=== PATIENT | female | born 1950 | race Caucasian/White ===

== ENCOUNTER 2020-07-23 08:27 | Outpatient (RCR) | payer MEDICARE, SELFPAY | END 2020-07-23 23:59 | LOC: IMMUN 08:27 | PROVIDERS: Visit Provider Family Medicine | DX: Z23 Encounter for immunization (principal) | CPT/HCPCS: 0011A; 0012A ==

== ENCOUNTER → 2022-10-05 | Outpatient (CLI) | payer MEDICARE, SELFPAY ==
--- NOTE | 2022-10-05 12:11 | ART_ITS ---
Reason For Study: Screening for cardiovascular disorder Procedure A bilateral lower extremity continuous wave Doppler with analog waveform analysis and ankle brachial indexes. Left Segmental Pressures Left brachial= 167mmHg. Left posterior tibial artery = 173mmHg. Left dorsalis pedis artery = 195mmHg. Left digit = 147 mmHg. The left posterior tibial artery waveforms are triphasic. The left dorsalis pedis waveforms are triphasic. Right Segmental Pressures Right brachial= 167mmHg. Right posterior tibial artery = 185mmHg. Right dorsalis pedis artery = 169mmHg. Right digit = 99 mmHg. Indices The right ankle brachial index by the posterior tibial artery is 1.11. The right ankle brachial index by the dorsalis pedis is 1.01. The right digital-brachial index is 0.59. The left ankle brachial index by the posterior tibial artery is 1.04. The left ankle brachial index by the dorsalis pedis is 1.17. The left digital-brachial index is 0.88. VL/Ankle Brachial Index Interpretation Summary Right CATHY 1.11, normal. Doppler/PVR waveforms of the right ankle normal at rest . TBI diminished, pedal/digit disease vs spasm Left CATHY 1.17, normal. TBI and Doppler/PVR waveforms of the left ankle normal a t rest. Ordering Physician: Liz Hu Referring Physician: LIZ HU NEUROLOGICAL PHYSIOTHERAPIST Performed By: Roosevelt Lozano RVT
--- NOTE | 2022-10-05 16:37 | STRESSREP ---
Stress Test Report Exercise stress test. 72-year-old lady with a history of chest pain Stress protocol: Resting EKG demonstrates normal sinus rhythm at a rate of 74 bpm resting blood pressure is 142/82 mmHg. The patient exercised according to the regular Chet protocol for a total duration of 5 minutes attaining a maximum heart rate of 141 bpm which was 96% of maximum predicted heart rate; the maximum workload was 7 metabolic equivalents. At rest there were no ST or T wave changes noted to suggest ischemia and at peak exercise upsloping ST changes only were noted which did not meet the criteria for ischemia. No clinical angina was noted the test was terminated due to the target heart rate being achieved/fatigue. The peak blood pressure was 178/60 mmHg. Rate-pressure product was 21,700. Conclusion: Normal exercise stress test with no evidence of ischemia at a moderate workload
== END | disposition home or self-care (01) ==
PROVIDERS: PCP Nurse Practitioner Adult Health; Referring Provider Nurse Practitioner Adult Health; Visit Provider Nurse Practitioner Adult Health
DX: R07.9 Chest pain, unspecified (principal); Z13.6 Encounter for screening for cardiovascular disorders; R09.89 Other specified symptoms and signs involving the circulatory and respiratory systems
CPT/HCPCS: 93017; 93922

== ENCOUNTER → 2024-04-14 | Outpatient (CLI) | payer MEDICARE, SELFPAY ==
[2024-04-14 09:35] LABS: Hemoglobin 13.9 g/dL (12.0-15.0); Mean Corp Hgb Conc 31.6 g/dL (32-36); Mean Corpuscular Hgb 28.7 pg (27.0-32.0); Mean Corpuscular Volume 90.9 fL (81-99); Mean Platelet Vol. 8.8 fl (6.2-12.0); Platelet Count 274 K/mm3 (150-450); RBC Distribution Width CV 13.7 % (11.6-14.6); RBC Distribution Width SD 45.9 fl (35.1-43.9); Red Blood Count 4.84 M/mm3 (4.2-5.4); White Blood Count 5.2 K/mm3 (4.4-11.0)
[2024-04-14 09:59] LABS: Hemoglobin A1c 5.4 % (3.8-5.6)
[2024-04-14 10:00] LABS: Vitamin D,25 Hydroxy 49.8 ng/mL
[2024-04-14 10:03] LABS: AST(SGOT) 12 U/L (15-37); Alanine Aminotransfer ALT/SGPT 18 U/L (13-56); Albumin, Serum 3.5 g/dL (3.2-5.0); Alkaline Phosphatase 80 U/L (45-117); Anion Gap 4 (5-15); BUN 17 mg/dL (7-18); BUN/Creat Ratio 18.4 RATIO (10-20); Calcium,Total 9.1 mg/dL (8.5-10.1); Chloride 108 mmol/L (98-107); Cholesterol 162 mg/dL (200); Creatinine, Serum 0.92 mg/dL (0.55-1.02); EST Glomerular Filtration Rate 63 mL/min (>60); Est Glom Filt Rate - Afr Amer 76 mL/min (>60); Globulin 3.4 g/dL (2.2-4.2); Glucose 103 mg/dL (74-106); High Density Lipoprotein 71 mg/dL; Potassium 3.8 mmol/L (3.5-5.1); Protein, Total 6.9 g/dL (6.4-8.2); Sodium Level 142 mmol/L (136-145); Triglycerides 92 mg/dL; Very Low Density Lipoprotein 18 mg/dL (5-40)
== END | disposition home or self-care (01) ==
LOC: LAB 09:06
PROVIDERS: PCP Nurse Practitioner Adult Health; Referring Provider Nurse Practitioner Adult Health; Visit Provider Nurse Practitioner Adult Health
DX: I10 Essential (primary) hypertension (principal); Z13.1 Encounter for screening for diabetes mellitus; E78.5 Hyperlipidemia, unspecified; E55.9 Vitamin D deficiency, unspecified; Z13.29 Encounter for screening for other suspected endocrine disorder
CPT/HCPCS: 36415; 80053; 80061; 82306; 83036; 84443; 85027

== ENCOUNTER → 2024-04-25 | Outpatient (CLI) | payer MEDICARE, SELFPAY ==
--- NOTE | 2024-04-25 10:11 | BI_ITS ---
MAMMOGRAPHY - BILATERAL SCREENING REASON FOR EXAM: Female, 73 years old. Routine annual screening examination. PERTINENT HISTORY: Non-contributory. Remote left excisional breast biopsy. TECHNIQUE: Digital bilateral breast darell (3D mammographic acquisition) in the CC and MLO projections. 2-D mediolateral oblique (MLO) and craniocaudad (CC) views of both breasts were obtained. CAD: Full Field Digital Mammography with Computer Added Detection was performed. COMPARISON: Comparison is made with prior outside examination dated April 14, 2023. FINDINGS: Breast Composition: The breasts are heterogeneously dense, which may obscure small masses. There are no dominant masses or suspicious calcifications. Stable small benign-appearing bilateral axillary lymph nodes. No other significant abnormalities are identified. There has been no significant change since the prior study. BI/SCRN MAMM (CAD)W/DARELL BILAT IMPRESSION: Stable bilateral screening mammogram. Yearly follow-up mammogram recommended. (A) ASSESSMENT CATEGORY: BIRADS Category 2: Benign. A letter regarding these results will be sent to the patient by the facility within 30 days. Approximately 10% of breast cancers are not detected by mammography. A normal mammogram should not delay biopsy of a clinically suspicious abnormality. [id number] Electronically Signed: Brian Kinney MD at 10:30 EST ,
== END | disposition home or self-care (01) ==
LOC: OPBI 10:10
PROVIDERS: PCP Nurse Practitioner Adult Health; Referring Provider Nurse Practitioner Adult Health; Visit Provider Nurse Practitioner Adult Health
DX: Z12.31 Encounter for screening mammogram for malignant neoplasm of breast (principal)
CPT/HCPCS: 77063; 77067

== ENCOUNTER → 2024-05-25 | Outpatient (CLI) | payer MEDICARE, SELFPAY ==
[2024-05-25 14:59] LABS: T4 Free Direct 1.22 ng/dL (0.76-1.46)
== END | disposition home or self-care (01) ==
LOC: LAB 13:37
PROVIDERS: PCP Nurse Practitioner Adult Health; Referring Provider Nurse Practitioner Family; Visit Provider Nurse Practitioner Family
DX: R94.6 Abnormal results of thyroid function studies (principal); R79.89 Other specified abnormal findings of blood chemistry
CPT/HCPCS: 36415; 84439; 84443

== ENCOUNTER → 2025-04-13 | Outpatient (CLI) | payer MEDICARE, SELFPAY ==
[2025-04-13 14:09] LABS: Hematocrit 46.9 % (37-47); Hemoglobin 14.6 g/dL (12.0-15.0); Mean Corp Hgb Conc 31.1 g/dL (32-36); Mean Corpuscular Volume 92.1 fL (81-99); Mean Platelet Vol. 8.7 fl (6.2-12.0); Platelet Count 290 K/mm3 (150-450); RBC Distribution Width CV 13.3 % (11.6-14.6); RBC Distribution Width SD 46.0 fl (35.1-43.9); Red Blood Count 5.09 M/mm3 (4.2-5.4); White Blood Count 4.9 K/mm3 (4.4-11.0)
[2025-04-13 14:48] LABS: AST(SGOT) 18 U/L (<=31); Alanine Aminotransfer ALT/SGPT 15 U/L (<=34); Albumin, Serum 4.1 g/dL (3.4-4.8); Alkaline Phosphatase 79 U/L (35-104); Anion Gap 9 (5-15); BUN 13 mg/dL (4-19); BUN/Creat Ratio 14.6 RATIO (10-20); Calcium,Total 9.6 mg/dL (7.6-11.0); Carbon Dioxide 28.5 mmol/L (21.0-32.0); Chloride 105 mmol/L (98-108); Globulin 2.9 g/dL (2.2-4.2); Glucose 104 mg/dL (70-99); Potassium 4.3 mmol/L (3.3-5.1); Vitamin D,25 Hydroxy 43.1 ng/mL (30-100)
[2025-04-13 15:07] LABS: Cholesterol 183 mg/dL (<=200); Low Density Lipoprotein Calc. 92 mg/dL; Triglycerides 145 mg/dL; Very Low Density Lipoprotein 29 mg/dL (5-40); cholesterol:hdl ratio screen 2.78
== END | disposition home or self-care (01) ==
LOC: LAB 13:25
PROVIDERS: PCP Nurse Practitioner Adult Health; Referring Provider Nurse Practitioner Adult Health; Visit Provider Nurse Practitioner Adult Health
DX: I10 Essential (primary) hypertension (principal); E78.5 Hyperlipidemia, unspecified; E55.9 Vitamin D deficiency, unspecified; Z13.29 Encounter for screening for other suspected endocrine disorder
CPT/HCPCS: 36415; 80053; 80061; 82306; 84443; 85027

== ENCOUNTER → 2025-05-08 | Outpatient (CLI) | payer MEDICARE, SELFPAY ==
--- NOTE | 2025-05-08 12:48 | BI_ITS ---
EXAM: SCRN MAMM (CAD)W/DARELL BILAT DATE: 05/08/2025 CLINICAL HISTORY: F, Age 74 y/o , SCREENING No family history. Remote left excisional breast biopsy. TECHNIQUE: Procedure Code: [id number] Modality: MG Procedure: SCRN MAMM (CAD)W/DARELL BILAT COMPARISON: Prior exam(s) dated April 25, 2024.. FINDINGS: TISSUE DENSITY: The breasts are heterogeneously dense, which may obscure small masses. Bilateral Breast Mammographic Findings: No significant masses, calcifications or other abnormalities are identified. Stable small benign-appearing bilateral axillary lymph nodes. No suspicious masses, areas of developing architectural distortion, or suspicious calcifications. There has been no significant interval change. BI/SCRN MAMM (CAD)W/DARELL BILAT IMPRESSION: Stable bilateral screening mammogram. OVERALL FINAL ASSESSMENT BI-RADS 2: BENIGN RECOMMENDATION: Routine annual follow-up in 1 Year Additional Recommendation none A letter with findings and recommendations will be mailed to the patient. Reading Location: [facility]
--- NOTE | 2025-05-08 12:53 | BD_ITS ---
PROCEDURE: DEXA BONE DENSITY STUDY 05/08/2025 REASON FOR EXAM: F, age 74 y/o . Postmenopausal. TECHNIQUE: Procedure Code: BDDBD Modality: DX Procedure: DEXA BONE DENSITY STUDY COMPARISON: None FINDINGS: BMD and T-SCORES Lumbar spine: 0.999 g/cm2, T-score -0.4 Levels: L1 through L4 Left femoral neck: 0.648 g/cm2, T-score -1.8 Femoral neck comparison data not recommended for monitoring change. Left total hip: 0.819 g/cm2, T-score -1.0 Right femoral neck: 0.680 g/cm2, T-score -1.5 Femoral neck comparison data not recommended for monitoring change. Right total hip: 0.766 g/cm2, T-score -1.4 The World Health Organization has defined the following categories based on bone density: Normal bone density: T-score equal to or greater than -1.0 Osteopenia: T-score between -1.0 and -2.5 Osteoporosis: T-score equal to or less than -2.5 FRAX (or Comparable) Fracture Risk Assessment: 10 Year Probability of Fracture: Major Osteoporotic Fracture: 18% Hip Fracture: 3.9% (Note: FRAX is not to be reported in setting of normal range bone density, osteoporosis on DEXA, known history of osteoporosis, prior osteoporotic hip or vertebral fracture, or for any patient undergoing pharmacological treatment for bone loss.) The National Osteoporosis Foundation (NOF) recommends pharmacological treatment for patients with a FRAX 10-year risk of 3% or higher for a hip fracture, or 20% or higher for a major osteoporotic fracture, to prevent osteoporosis and reduce fracture risk. The patient does meet the pharmacological treatment recommendations for prevention of osteoporosis. BD/Dexa Bone Density Study IMPRESSION: OSTEOPENIA. Recommend follow-up as clinically warranted. Reading Location: [facility]
--- OUTSIDE RECORDS SUMMARY | 2025-05-08 19:00 | XMS RPT_ITS | CCD ---
Author Organization [facility] Care Team Providers Care Insurance Follow Up Rep Name Role Phone Thaina LEGAL INSTRUCTOR.Oj BARAHONA Primary Care Provider Thania LEGAL INSTRUCTOR.Oj BARAHONA Primary Care Provider Bonnie STOKES, Yovany Burgos Unavailable Alex STOKES, Ashish Chanel Unavailable Lamont STOKES, Mauri Hartman Unavailable Adri OD, David Ott Unavailable [phone] Thania LEGAL INSTRUCTOR.Oj BARAHONA Primary Care Provider Anali Ibarra OD Unavailable Thania BARK GRINDER, Oj Primary Care Unavailable Trill BARK GRINDER, Madison Referring Unavailable Trill BARK GRINDER, Madison Attending Unavailable Thania BARK GRINDER, Oj Primary Care Unavailable Thania BARK GRINDER, Oj Referring Unavailable Thania BARK GRINDER, Oj Attending Unavailable Thania BARK GRINDER, Oj Referring Unavailable Thania BARK GRINDER, Oj Attending Unavailable Thania BARK GRINDER, Oj Primary Care Unavailable OJ HU M Attending Unavailable OJ HU M Referring Unavailable OJ HU M Primary Care Unavailable Unavailable Unavailable Unavailable Allergies Allergy Classification Reported Allergen(s) Allergy Type Date of Onset Reaction(s) Facility (20 sources) Chlorpheniramine / Pseudoephedrine; Translations: [MED-HIST] Drug Allergy 6 Unknown [facility] (20 sources) Morphine; Translations: [MORPHINE] Drug Allergy 2 Intolerance, Other: See Comments [facility] Medications Current Medications Medication Drug Class(es) Dates Sig (Normalized) Sig (Original) atorvastatin 10 mg oral tablet (20 sources) HMG-CoA Reductase Inhibitor Start: 02-23-2023 End: 02-21-2024 take 1 tablet by mouth once daily at bedtime atorvastatin (LIPITOR) 10 mg tablet Indications: Hyperlipidemia, unspecified hyperlipidemia type Take 1 tablet by mouth once daily. BEFORE BEDTIME 90 tablet 3 02/21/2024 Active Start: 03-16-2021 End: 03-10-2022 take 1 tablet by mouth once daily at bedtime atorvastatin (LIPITOR) 10 mg tablet Indications: Hyperlipidemia, unspecified hyperlipidemia type Take 1 tablet by mouth once daily. BEFORE BEDTIME 90 tablet 3 03/10/2022 Active Comment on above: Take 1 tablet by myra th once daily. BEFORE BEDTIME Bacillus coagulans (20 sources) take 1 tablet by mouth once daily BACILLUS COAGULANS (PROBIOTIC, B. COAGULANS, ORAL) Take 1 tablet by mouth once daily. Active take 1 tablet by mouth once bin y BACILLUS COAGULANS (PROBIOTIC, B. COAGULANS, ORAL) Take 1 tablet by mouth once daily. 0 Active Comment on above: Take 1 tablet by myra th once daily. Blood Pressure Monitor kit (20 sources) Start: 05-21-2016 Blood Pressure Monitor kit Indications: Essential hypertension 1 Kit as directed. 1 Kit 05/21/2016 Active Start: 05-21-2016 Blood Pressure Monitor kit Indications: Essential hypertension 1 Kit as directed. 1 Kit 0 05/21/2016 Active Comment on above: 1 Kit as directed. Blood Pressure Test Kit-Large kit (20 sources) Start: 05-21-2016 Blood Pressure Test Kit-Large kit 05/21/2016 Active Start: 05-21-2016 Blood Pressure Test Kit-Large kit calcium carbonate 500 mg chewable tablet (20 sources) Start: 03-31-2017 take 750 mg by mouth once daily calcium carbonate (TUMS) 500 mg chew Take 750 mg by mouth once daily. 0 03/31/2017 Active Start: 03-31-2017 take 500 mg by mouth twice daily calcium carbonate (TUMS) 500 mg chew Take by mouth twice daily. 0 03/31/2017 Active Comment on above: Take by mouth twice daily. calcium carbonate 1500 mg / cholecalciferol 800 unt oral tablet (20 sources) Vitamin D take 1 tablet by mouth once daily, then take 3 tablets by mouth once daily calcium carbonate-vitamin D3 600 mg(1,500mg) -800 unit tab Take by mouth. 20 mcg of Vitamin D 3 and 600 mg of Calcium one daily Active take 3 tablets by mouth once tai ly calcium carbonate-vitamin D3 600 mg(1,500mg) -800 unit tab Take by mouth. 800 Units of Vitamin D 3 and 1000mg of Calcium one daily Active Comment on above: Take by mouth. 800 U nits of Vitamin D 3 and 1000mg of Calcium one daily cholecalciferol 0.025 mg oral tablet (14 sources) Vitamin D take 1 tablet by mouth once daily cholecalciferol (VITAMIN D) 1,000 unit tab tablet Take 1,000 Units by mouth once daily. Active hyoscyamine sulfate 0.125 mg sublingual tablet (14 sources) take 0.125 mg under the tongue every four hours as needed hyoscyamine sublingual (LEVSIN SL) 0.125 mg Dissolve 0.125 mg under the tongue every 4 hours as needed. Active Inulin (14 sources) inulin (FIBER MMIES ORAL) Take by mouth. Active losartan potassium 25 mg oral tablet (20 sources) Angiotensin 2 Receptor Keisha Start: 02-24-20 End: 02-21-20 24 take 1 tablet by mouth once daily losartan (COZAAR) 25 mg tablet Indications: Essential hypertension take 1 tablet by mouth once daily. 90 tablet 3 02/21/2024 Active Start: 09-16-2022 take 1 tablet by myra th once daily losartan (COZAAR) 25 mg tablet Indications: Essential hypertension Take 1 tablet by mouth once daily. 90 tablet 1 09/16/2022 Active Comment on above: Take 1 tablet by myra th once daily. nystatin [id number] unt/ml topical cream (20 sources) Polyene Antifungal Start: 03-10-2022 End: 04-04-2024 nystatin (MYCOSTATIN) cream Indications: Skin candidiasis Apply to affected area two times a day. 30 g 04/04/2024 Active Comment on above: Apply to affected ar ea twice daily. omega-3 fatty acids (FISH OIL CONCENTRATE) 1,000 mg cap (20 sources) take 1 capsule by mouth twice daily omega-3 fatty acids (FISH OIL CONCENTRATE) 1,000 mg cap Take 2 g by mouth twice daily. Active take 1 capsule by mouth twice da autumn omega-3 fatty acids (FISH OIL CONCENTRATE) 1,000 mg cap Take 2 g by mouth twice daily. 0 Active Comment on above: Take 2 g by mouth tw ice daily. oxybutynin chloride 5 mg oral tablet (20 sources) Cholinergic Muscarinic Antagonist Start: 1 End: 5 take 1 tablet by mouth twice daily oxybutynin (DITROPAN) 5 mg tablet Indications: Urinary urgency TAKE 1 TABLET BY MOUTH TWICE DAILY 180 tablet 3 08/14/2024 Active Comment on above: Take 1 tablet by myra th twice daily. pantoprazole 40 mg delayed release oral tablet (20 sources) Proton Pump Inhibitor Start: 7 take 1 tablet by mouth once daily pantoprazole DR (PROTONIX) 40 mg tablet Take 40 mg by mouth once daily. 03/31/2017 Active Comment on above: Take 40 mg by mouth once daily. sertraline 25 mg oral tablet (19 sources) Serotonin Reuptake Inhibitor Start: 4 End: 5 take 1 tablet by mouth once daily sertraline (ZOLOFT) 25 mg tablet Indications: Anxiety and depression Take 1 tablet by mouth once daily. 90 tablet 1 11/22/2024 Active Completed/Discontinued Medications Medication Drug Class(es) Dates Sig (Normalized) Sig (Original) lisinopril 10 mg oral tablet (14 sources) Angiotensin Converting Enzyme Inhibitor Start: 03-11-2021 End: 09-16-2022 take 1 tablet by mouth once daily lisinopril (ZESTRIL, PRINIVIL) 10 mg tablet Indications: Essential hypertension Take 1 tablet by mouth once daily. 90 tablet 3 03/10/2022 09/16/2022 Discontinued Comment on above: Take 1 tablet by myra th once daily. naproxen 500 mg oral tablet (12 sources) Nonsteroidal Anti-inflammatory Drug Start: 07-23-2021 End: 09-16-2022 take 1 tablet by mouth twice daily as needed for pain naproxen (NAPROSYN) 500 mg tablet Indications: Acute pain of right knee Take 1 tablet by mouth twice daily as needed (FOR PAIN - TAKE WITH FOOD.). 60 tablet 1 07/23/2021 09/16/2022 Discontinued Comment on above: Take 1 tablet by myra th twice daily as needed (FOR PAIN - TAKE WITH FOOD.). Problems Active Problems Problem Classification Problem Date Documented Date Episodic/Chronic Abdominal hernia (20 sources) Hiatal hernia; Translations: [Diaphragmatic hernia without obstruction or gangrene] 09-15-2016 Episodic Anxiety disorders (3 sources) Mixed anxiety and depressive disorder; Translations: [Anxiety disorder, unspecified] 09-21-2023 Chronic Diabetes mellitus without complication (1 source) Hyperglycemia; Translations: [Hyperglycemia, unspecified] Episodic Disorders of lipid metabolism (7 sources) Hyperlipidemia; Translations: [Hyperlipidemia, unspecified] Onset: 04-04-2024 Chronic Esophageal disorders (20 sources) Gastroesophageal reflux disease; Translations: [Gastro-esophageal reflux disease without esophagitis] Onset: 03-31-2017 03-31-2017 Chronic Essential hypertension (20 sources) Essential hypertension; Translations: [Essential (primary) hypertension] Onset: 09-10-2020 09-10-2020 Chronic Genitourinary symptoms and ill-defined conditions (20 sources) Urgent desire to urinate; Translations: [Urgency of urination] 12-15-2011 Episodic Nonspecific chest pain (1 source) Chest pain; Translations: [Chest pain, unspecified] Episodic Nutritional deficiencies (4 sources) Vitamin D deficiency; Translations: [Vitamin D deficiency, unspecified] Onset: 04-04-2024 Chronic Osteoarthritis (20 sources) Arthritis; Translations: [Unspecified osteoarthritis, unspecified site] 03-28-2014 Chronic Other aftercare (16 sources) Patient encounter status; Translations: [Other terminologist (current) drug therapy] Episodic Other inflammatory condition of skin (20 sources) Psoriasis; Translations: [Psoriasis, unspecified] 03-28-2014 Chronic Other non-traumatic joint disorders (2 sources) Pain in right knee; Translations: [Pain in joint, lower leg] Episodic Other nutritional; endocrine; and metabolic disorders (17 sources) Obese class I; Translations: [Obesity, unspecified] Onset: 10-27-2023 10-27-2023 Chronic Residual codes; unclassified (2 sources) Postmenopausal state; Translations: [Asymptomatic menopausal state] 03-22-2023 Episodic Past or Other Problems Problem Classification Problem Date Documented Da te Episodic/Chronic Mycoses (3 sources) Candidiasis of skin; Translations: [Candidiasis of skin and nail] Onset: 04-04-2024 Episodic Other circulatory disease (17 sources) Elevated blood-pressure reading without diagnosis of hypertension; Translations: [Elevated blood-pressure reading, without diagnosis of hypertension] Resolved: 09-10-2020 09-10-2020 Episodic Other non-traumatic joint disorders (17 sources) Pain in right shoulder; Translations: [Pain in joint, shoulder region] Resolved: 09-10-2020 09-10-2020 Episodic Other screening for suspected conditions (not mental disorders or infectious disease) (6 sources) Thyroid function tests abnormal; Translations: [Abnormal results of thyroid function studies] Onset: 04-04-2024 05-25-2024 Episodic Results Test Name Value Interpretation Reference Range Facility [facility] 05-29-2024 CNPN Telephone (AGINTMLW) LEVI PADILLAALDKUSHAL Dotson ([id number]) 1950 F Date Time Provider Department 05/29/24 OJ HUINTMAHESH During your visit today, we recorded the following information about you: Chapito Mayberry MA 05/29/2024 1:48 PM Signed ----- Message from Oj Hu APRN.BREAK OFF WORKER sent at 05/29/2024 1:03 PM EST ----- Thyroid levels normal Chapito Mayberry MA 05/29/2024 1:49 PM Signed Patient informed. Chapito Mayberry MA Allergies As of Date: 05/29/2024 Noted Allergy Reaction MED-HIST 01/02/2016 16 - Unknown Comments: Non Specific Or Non Database Allergies Include: Shrimp (Reaction: Nausea Other Reaction: Vomiting) MORPHINE 12/15/2011 5 - Intolerance 14 - Other: See Comments Comments: wires Pt up-insomnia Date Reviewed: 04/04/2024 Reviewed by: Oj Hu APRN.BREAK OFF WORKER - Fully Assessed Prescriptions as of 05/29/2024 - cholecalciferol (VITAMIN D) 1,000 unit tab tablet Take 1,000 Units by mouth once daily. - inulin (FIBER GUMMIES ORAL) Take by mouth. - hyoscyamine sublingual (LEVSIN SL) 0.125 mg Dissolve 0.125 mg under the tongue every 4 hours as needed. - nystatin (MYCOSTATIN) cream Apply to affected area two times a day. - losartan (COZAAR) 25 mg tablet take 1 tablet by mouth once daily. - atorvastatin (LIPITOR) 10 mg tablet Take 1 tablet by mouth once daily. BEFORE BEDTIME - sertraline (ZOLOFT) 25 mg tablet Take 1 tablet by mouth once daily. - oxybutynin (DITROPAN) 5 mg tablet take 1 tablet by mouth twice daily. - calcium carbonate (TUMS) 500 mg chew Take 750 mg by mouth once daily. - pantoprazole DR (PROTONIX) 40 mg tablet Take 40 mg by mouth once daily. - BACILLUS COAGULANS (PROBIOTIC, B. COAGULANS, ORAL) Take 1 tablet by mouth once daily. - Blood Pressure Test Kit-Large kit - Blood Pressure Monitor kit 1 Kit as directed. - calcium carbonate-vitamin D3 600 mg(1,500mg) -800 unit tab Take by mouth. 20 mcg of Vitamin D 3 and 600 mg of Calcium one daily - omega-3 fatty acids (FISH OIL CONCENTRATE) 1,000 mg cap Take 2 g by mouth twice daily. Problem List As Of Date 05/29/2024 Noted Resolved Urinary urgency [R39.15] Arthritis [M19.90] Psoriasis [L40.9] DJD (degenerative joint disease) [M19.90] Pain in right shoulder [M25.511] 09/10/2020 Elevated blood pressure reading without diagnos* 09/10/2020 Essential hypertension [I10] Hiatal hernia [K44.9] GERD (gastroesophageal reflux disease) [K21.9] Obesity, Class I, BMI 30-34.9 [E66.811] 10/27/2023 Encounter Status:Closed by CHAPITO MAYBERRY on 05/29/24 [facility] 05-25-2024 [place] Telephone (AGINTMLW) PORFIRIO PADILLA ([id number]) 1950 F Date Time Provider Department 05/25/24 OJ HU AGINTMLW During your visit today, we recorded the following information about you: Becky Vigil LPN 05/25/2024 1:54 PM Signed [facility] called requesting new lab as diagnosis code is not covered. New orders placed using R94.6 code. Oj Hu BREAK OFF WORKER to sign orders. ANN Man Brenda, LPN 05/25/2024 1:58 PM Signed Lab orders faxed to [phone]. Becky Vigil LPN Allergies As of Date: 05/25/2024 Noted Allergy Reaction MED-HIST 01/02/2016 16 - Unknown Comments: Non Specific Or Non Database Allergies Include: Shrimp (Reaction: Nausea Other Reaction: Vomiting) MORPHINE 12/15/2011 5 - Intolerance 14 - Other: See Comments Comments: wires Pt up-insomnia Date Reviewed: 04/04/2024 Reviewed by: Oj Hu APRN.BREAK OFF WORKER - Fully Assessed Reason for Visit: Orders [681] Primary Visit Diagnosis:Nonspecifi c abnormal results of thyroid function study [R94.6] Order(s):THYROID STIMULATING HORMONE [SQTSH] Order #: [id number] FUTURE T4 FREE/FREE THYROXINE [SQFT4] Order #: [id number] FUTURE Prescriptions as of 05/25/2024 - cholecalciferol (VITAMIN D) 1,000 unit tab tablet Take 1,000 Units by mouth once daily. - inulin (FIBER GUMMIES ORAL) Take by mouth. - hyoscyamine sublingual (LEVSIN SL) 0.125 mg Dissolve 0.125 mg under the tongue every 4 hours as needed. - nystatin (MYCOSTATIN) cream Apply to affected area two times a day. - losartan (COZAAR) 25 mg tablet take 1 tablet by mouth once daily. - atorvastatin (LIPITOR) 10 mg tablet Take 1 tablet by mouth once daily. BEFORE BEDTIME - sertraline (ZOLOFT) 25 mg tablet Take 1 tablet by mouth once daily. - oxybutynin (DITROPAN) 5 mg tablet take 1 tablet by mouth twice daily. - calcium carbonate (TUMS) 500 mg chew Take 750 mg by mouth once daily. - pantoprazole DR (PROTONIX) 40 mg tablet Take 40 mg by mouth once daily. - BACILLUS COAGULANS (PROBIOTIC, B. COAGULANS, ORAL) Take 1 tablet by mouth once daily. - Blood Pressure Test Kit-Large kit - Blood Pressure Monitor kit 1 Kit as directed. - calcium carbonate-vitamin D3 600 mg(1,500mg) -800 unit tab Take by mouth. 20 mcg of Vitamin D 3 and 600 mg of Calcium one daily - omega-3 fatty acids (FISH OIL CONCENTRATE) 1,000 mg cap Take 2 g by mouth twice daily. Problem List As Of Date 05/25/2024 Noted Resolved Urinary urgency [R39.15] Arthritis [M19.90] Psoriasis [L40.9] DJD (degenerative joint disease) [M19.90] Pain in right shoulder [M25.511] 09/10/2020 Elevated blood pressure reading without diagnos* 09/10/2020 Essential hypertension [I10] Hiatal hernia [K44.9] GERD (gastroesophageal reflux disease) [K21.9] Obesity, Class I, BMI 30-34.9 [E66.811] 10/27/2023 Encounter Status:Closed by BECKY VIGIL on 05/25/24 [facility] No Panel InformationOrdered By: Becky Vigil on 05-25-2024 [facility] T4 Free Directon 05-25-2024 T4 FREE DIRECT 1.22 ng/dL Normal 0.76-1.46 [facility] Comment on above: Performed By: #### L [id number], L506.0400 #### [facility] [address] [place], [place], [id number] T4 [Mass/Vol]on 05-25-2024 Free T4 [Mass/Vol] 1.22 ng/dL 0.76 - 1.46 [facility] TSH (EXTERNAL)Ordered By: Bernard Vigil on 05-25-2024 TSH Qn 1.910 m[IU]/L [facility] Thyroid Stim Hormone (TSH)on 05-25-2024 TSH 1.910 uIU/mL Normal 0.358-3.740 [facility] Comment on above: Performed By: #### L [id number], L506.0400 #### [facility] [place], [address] [facility] 05-16-2024 [place] Telephone (AGFAMPLE) VALERIEPORFIRIO L ([id number]) 1950 F Date Time Provider Department 05/16/24 OJ HU During your visit today, we recorded the following information about you: Eulalia Romo MA 05/16/2024 7:48 AM Signed ----- Message from Chapito Dotson MA sent at 04/18/2024 9:34 AM EST ----- Patient due for 4 week recheck TSH and T4 after TSH was mildly elevated. CINDA Toussaint Kristin C, APRN.[facility] 05/19/2024 10:26 PM Signed Thank you. Please see orders. Madison Davis APRN.Madison Alcala APRN.[facility] 05/19/2024 10:26 PM Signed Addended by: MADISON DAVIS on: 05/19/2024 10:26 PM Modules accepted: Sweetie Ramos MA 05/22/2024 7:46 AM Signed Lm on pt. Vm with all information. CINDA Charles Brenda, LPN 05/23/2024 12:46 PM Signed Pt left message asking for lab orders to be faxed to [facility]. Per pt message she will get her labs done on . Lab orders faxed to [facility] at [phone]. [employer] message sent to pt. Becky Vigil LPN Allergies As of Date: 05/16/2024 Noted Allergy Reaction MED-HIST 01/02/2016 16 - Unknown Comments: Non Specific Or Non Database Allergies Include: Shrimp (Reaction: Nausea Other Reaction: Vomiting) MORPHINE 12/15/2011 5 - Intolerance 14 - Other: See Comments Comments: wires Pt up-insomnia Date Reviewed: 04/04/2024 Reviewed by: Oj Hu APRN.BREAK OFF WORKER - Fully Assessed Reason for Visit: Lab Orders [1688] Primary Visit Diagnosis:Elevated TSH [R79.89] Order(s):THYROID STIMULATING HORMONE [SQTSH] Order #: [id number] FUTURE T4 FREE/FREE THYROXINE [SQFT4] Order #: [id number] FUTURE Prescriptions as of 05/23/2024 - cholecalciferol (VITAMIN D) 1,000 unit tab tablet Take 1,000 Units by mouth once daily. - inulin (FIBER GUMMIES ORAL) Take by mouth. - hyoscyamine sublingual (LEVSIN SL) 0.125 mg Dissolve 0.125 mg under the tongue every 4 hours as needed. - nystatin (MYCOSTATIN) cream Apply to affected area two times a day. - losartan (COZAAR) 25 mg tablet take 1 tablet by mouth once daily. - atorvastatin (LIPITOR) 10 mg tablet Take 1 tablet by mouth once daily. BEFORE BEDTIME - sertraline (ZOLOFT) 25 mg tablet Take 1 tablet by mouth once daily. - oxybutynin (DITROPAN) 5 mg tablet take 1 tablet by mouth twice daily. - calcium carbonate (TUMS) 500 mg chew Take 750 mg by mouth once daily. - pantoprazole DR (PROTONIX) 40 mg tablet Take 40 mg by mouth once daily. - BACILLUS COAGULANS (PROBIOTIC, B. COAGULANS, ORAL) Take 1 tablet by mouth once daily. - Blood Pressure Test Kit-Large kit - Blood Pressure Monitor kit 1 Kit as directed. - calcium carbonate-vitamin D3 600 mg(1,500mg) -800 unit tab Take by mouth. 20 mcg of Vitamin D 3 and 600 mg of Calcium one daily - omega-3 fatty acids (FISH OIL CONCENTRATE) 1,000 mg cap Take 2 g by mouth twice daily. Problem List As Of Date 05/16/2024 Noted Resolved Urinary urgency [R39.15] Arthritis [M19.90] Psoriasis [L40.9] DJD (degenerative joint disease) [M19.90] Pain in right shoulder [M25.511] 09/10/2020 Elevated blood pressure reading without diagnos* 09/10/2020 Essential hypertension [I10] Hiatal hernia [K44.9] GERD (gastroesophageal reflux disease) [K21.9] Obesity, Class I, BMI 30-34.9 [E66.811] 10/27/2023 Encounter Status:Closed by EULALIA ROMO on 05/16/24 [facility] 05-03-2024 CNPN Telephone (AGINTMLW) PORFIRIO PADILLA ([id number]) 1950 F Date Time Provider Department 05/03/24 OJ HU AGINTMLW During your visit today, we recorded the following information about you: Oj Hu APRN.CNP 05/03/2024 1:21 PM Signed Let pt know her mammogram is stable. No concerns. Follow up one year Chapito Mayberry MA 05/08/2024 1:48 PM Signed Left message informing patient of results. Chapito Mayberry MA Allergies As of Date: 05/03/2024 Noted Allergy Reaction MED-HIST 01/02/2016 16 - Unknown Comments: Non Specific Or Non Database Allergies Include: Shrimp (Reaction: Nausea Other Reaction: Vomiting) MORPHINE 12/15/2011 5 - Intolerance 14 - Other: See Comments Comments: wires Pt up-insomnia Date Reviewed: 04/04/2024 Reviewed by: Oj Hu APRN.CNP - Fully Assessed Reason for Visit: Results [95] Cmt: Mammogram Prescriptions as of 05/08/2024 - cholecalciferol (VITAMIN D) 1,000 unit tab tablet Take 1,000 Units by mouth once daily. - inulin (FIBER GUMMIES ORAL) Take by mouth. - hyoscyamine sublingual (LEVSIN SL) 0.125 mg Dissolve 0.125 mg under the tongue every 4 hours as needed. - nystatin (MYCOSTATIN) cream Apply to affected area two times a day. - losartan (COZAAR) 25 mg tablet take 1 tablet by mouth once daily. - atorvastatin (LIPITOR) 10 mg tablet Take 1 tablet by mouth once daily. BEFORE BEDTIME - sertraline (ZOLOFT) 25 mg tablet Take 1 tablet by mouth once daily. - oxybutynin (DITROPAN) 5 mg tablet take 1 tablet by mouth twice daily. - calcium carbonate (TUMS) 500 mg chew Take 750 mg by mouth once daily. - pantoprazole DR (PROTONIX) 40 mg tablet Take 40 mg by mouth once daily. - BACILLUS COAGULANS (PROBIOTIC, B. COAGULANS, ORAL) Take 1 tablet by mouth once daily. - Blood Pressure Test Kit-Large kit - Blood Pressure Monitor kit 1 Kit as directed. - calcium carbonate-vitamin D3 600 mg(1,500mg) -800 unit tab Take by mouth. 20 mcg of Vitamin D 3 and 600 mg of Calcium one daily - omega-3 fatty acids (FISH OIL CONCENTRATE) 1,000 mg cap Take 2 g by mouth twice daily. Problem List As Of Date 05/03/2024 Noted Resolved Urinary urgency [R39.15] Arthritis [M19.90] Psoriasis [L40.9] DJD (degenerative joint disease) [M19.90] Pain in right shoulder [M25.511] 09/10/2020 Elevated blood pressure reading without diagnos* 09/10/2020 Essential hypertension [I10] Hiatal hernia [K44.9] GERD (gastroesophageal reflux disease) [K21.9] Obesity, Class I, BMI 30-34.9 [E66.811] 10/27/2023 Encounter Status:Closed by CHAPITO MAYBERRY on 05/08/24 [facility] SCRN MAMM (CAD)W/DARELLHowie Carreno n 04-25-2024 SCRN MAMM (CAD)W/DARELL PEREZ [facility] Services [address] [place] [address] SCRN MAMM (CAD)W/DARELL PEREZ MR#: [id number] Acct: [id number] Name: PORFIRIO PADILLA Rep #: [id number] : 1950 F 73 From: Brian escalera MD PCP: LORI Stewart Status: REG [facility] Study: SCRN MAMM (CAD)W/DARELL BILAT Date of Exam: 08/14 Exam# [id number] Ordering Dr: Oj Hu NP, NP -C [id number] MAMMOGRAPHY - BILATERAL SCREENING REASON FOR EXAM: Female, 73 years old. Routine annual screening examination. PERTINENT HISTORY: Non-contributory. Remote left excisional breast biopsy. TECHNIQUE: Digital bilateral breast darell (3D mammographic acquisition) in the CC and MLO projections. 2-D mediolateral oblique (MLO) and craniocaudad (CC) views of both breasts were obtained. CAD: Full Field Digital Mammography with Computer Added Detection was performed. COMPARISON: Comparison is made with prior outside examination dated April 14, 2023. FINDINGS: Breast Composition: The breasts are heterogeneously dense, which may obscure small masses. There are no dominant masses or suspicious calcifications. Stable small benign-appearing bilateral axillary lymph nodes. No other significant abnormalities are identified. There has been no significant change since the prior study. BI/SCRN MAMM (CAD)W/DARELL BILAT IMPRESSION: Stable bilateral screening mammogram. Yearly follow-up mammogram recommended. (A) ASSESSMENT CATEGORY: BIRADS Category 2: Benign. A letter regarding these results will be sent to the patient by the facility within 30 days. Approximately 10% of breast cancers are not detected by mammography. A normal mammogram should not delay biopsy of a clinically suspicious abnormality. [id number] Electronically Signed: Brian Kinney MD at 10:30 EST , CC: LORI Hu Terrazzo Roller: Signed David [facility] 04-18-2024 [place] Telephone (AGINTMLW) PORFIRIO PADILLA ([id number]) 1950 F Date Time Provider Department 04/18/24 OJ HU AGINTMLW During your visit today, we recorded the following information about you: Chapito Mayberry MA 04/18/2024 9:33 AM Signed ----- Message from Oj Hu APRN.BREAK OFF WORKER sent at 04/18/2024 6:59 AM EST ----- Let pt know her CMP and CBC are unremarkable. Tsh mildly elevated. Recommend recheck in 4 wks TSH and t4 Vit d normal Hgb A1c normal Chapito Mayberry MA 04/18/2024 9:35 AM Signed Patient informed of results and recommendations. Reminder placed for recheck. Chapito Mayberry MA Allergies As of Date: 04/18/2024 Noted Allergy Reaction MED-HIST 01/02/2016 16 - Unknown Comments: Non Specific Or Non Database Allergies Include: Shrimp (Reaction: Nausea Other Reaction: Vomiting) MORPHINE 12/15/2011 5 - Intolerance 14 - Other: See Comments Comments: wires Pt up-insomnia Date Reviewed: 04/04/2024 Reviewed by: Oj Hu APRN.BREAK OFF WORKER - Fully Assessed Reason for Visit: Results [95] Prescriptions as of 04/18/2024 - cholecalciferol (VITAMIN D) 1,000 unit tab tablet Take 1,000 Units by mouth once daily. - inulin (FIBER GUMMIES ORAL) Take by mouth. - hyoscyamine sublingual (LEVSIN SL) 0.125 mg Dissolve 0.125 mg under the tongue every 4 hours as needed. - nystatin (MYCOSTATIN) cream Apply to affected area two times a day. - losartan (COZAAR) 25 mg tablet take 1 tablet by mouth once daily. - atorvastatin (LIPITOR) 10 mg tablet Take 1 tablet by mouth once daily. BEFORE BEDTIME - sertraline (ZOLOFT) 25 mg tablet Take 1 tablet by mouth once daily. - oxybutynin (DITROPAN) 5 mg tablet take 1 tablet by mouth twice daily. - calcium carbonate (TUMS) 500 mg chew Take 750 mg by mouth once daily. - pantoprazole DR (PROTONIX) 40 mg tablet Take 40 mg by mouth once daily. - BACILLUS COAGULANS (PROBIOTIC, B. COAGULANS, ORAL) Take 1 tablet by mouth once daily. - Blood Pressure Test Kit-Large kit - Blood Pressure Monitor kit 1 Kit as directed. - calcium carbonate-vitamin D3 600 mg(1,500mg) -800 unit tab Take by mouth. 20 mcg of Vitamin D 3 and 600 mg of Calcium one daily - omega-3 fatty acids (FISH OIL CONCENTRATE) 1,000 mg cap Take 2 g by mouth twice daily. Problem List As Of Date 04/18/2024 Noted Resolved Urinary urgency [R39.15] Arthritis [M19.90] Psoriasis [L40.9] DJD (degenerative joint disease) [M19.90] Pain in right shoulder [M25.511] 09/10/2020 Elevated blood pressure reading without diagnos* 09/10/2020 Essential hypertension [I10] Hiatal hernia [K44.9] GERD (gastroesophageal reflux disease) [K21.9] Obesity, Class I, BMI 30-34.9 [E66.811] 10/27/2023 Encounter Status:Closed by CHAPITO MAYBERRY on 04/18/24 Normal [facility] 25-hydroxyvitamin D3 [Mass/V ol]on 04-14-2024 Vitamin D 25 Hydroxy 49.8 [facility] CBCon 04-14-2024 MCHC 31.6 % Abnormal 32 - 36 % [facility] RDW-SD 45.9 Abnormal 35.1 - 43.9 [facility] CBC-Complete Blood Cnt No Di ffon 04-14-2024 Erythrocyte distribution width (RBC) [Ratio] 13.7 % Normal 11.6-14.6 [facility] Comment on above: Performed By: #### L 501.9985, L500.4100, L500.4050, L100.0500, L501.9520, L506.1000 #### [facility] [address] [place], [address] Hematocrit (Bld) [Volume fraction] 44.0 % Normal 37-47 [facility] Comment on above: Performed By: #### L 501.9985, L500.4100, L500.4050, L100.0500, L501.9520, L506.1000 #### [facility] [address] [place], [address] Hemoglobin (Bld) [Mass/Vol] 13.9 g/dL Normal 12.0-15.0 [facility] Comment on above: Performed By: #### L 501.9985, L500.4100, L500.4050, L100.0500, L501.9520, L506.1000 #### [facility] [address] [place], [address] MCH (RBC) [Entitic mass] 28.7 pG Normal 27.0-32.0 [facility] Comment on above: Performed By: #### L 501.9985, L500.4100, L500.4050, L100.0500, L501.9520, L506.1000 #### [facility] [address] [place], [address] MCHC (RBC) [Mass/Vol] 31.6 g/dL Low 32-36 [facility] Comment on above: Performed By: #### L 501.9985, L500.4100, L500.4050, L100.0500, L501.9520, L506.1000 #### [facility] [address] [place], [address] MCV (RBC) [Entitic vol] 90.9 fL Normal 81-99 [facility] Comment on above: Performed By: #### L 501.9985, L500.4100, L500.4050, L100.0500, L501.9520, L506.1000 #### [facility] [address] [place], [address] Platelet mean volume (Bld) [Entitic vol] 8.8 fL Normal 6.2-12.0 [facility] Comment on above: Performed By: #### L 501.9985, L500.4100, L500.4050, L100.0500, L501.9520, L506.1000 #### [facility] [address] [place], [address] Platelets (Bld) [#/Vol] 274 10*3/uL Normal 150-450 [facility] Comment on above: Performed By: #### L 501.9985, L500.4100, L500.4050, L100.0500, L501.9520, L506.1000 #### [facility] [address] [place], [address] RBC (Bld) [#/Vol] 4.84 10*6/uL Normal 4.2-5.4 [facility] Comment on above: Performed By: #### L 501.9985, L500.4100, L500.4050, L100.0500, L501.9520, L506.1000 #### [facility] [address] [place], [address] RDW SD 45.9 fl High 35.1-43.9 [facility] Comment on above: Performed By: #### L 501.9985, L500.4100, L500.4050, L100.0500, L501.9520, L506.1000 #### [facility] [address] [place], [address] WBC (Bld) [#/Vol] 5.2 10*3/uL Normal 4.4-11.0 [facility] Comment on above: Performed By: #### L 501.9985, L500.4100, L500.4050, L100.0500, L501.9520, L506.1000 #### [facility] [address] [place], [address] CMP (EXTERNAL)on 04-14-2024 Alk Phos Total 80 U/L 45 - 117 U/L [facility] Bili Total 0.50 mg/dL 0.2 - 1 mg/dL [facility] Calcium [Mass/Vol] 9.1 mg/dL 8.5 - 10. 1 mg/dL [facility] GFR 63 mL/MIN [facility] GFR AFR AMER 76 mL/MIN [facility] Protein [Mass/Vol] 6.9 g/dL [facility] Comprehensive Metabolic Prof ilon 04-14-2024 Albumin [Mass/Vol] 3.5 g/dL Normal 3.2-5.0 [facility] Comment on above: Performed By: #### L 501.9985, L500.4100, L500.4050, L100.0500, L501.9520, L506.1000 #### [facility] [address] [place], [address] Albumin/Globulin [Mass ratio] 1.0 {ratio} Normal 0.9-2.4 [facility] Comment on above: Performed By: #### L 501.9985, L500.4100, L500.4050, L100.0500, L501.9520, L506.1000 #### [facility] [address] [place], [address] ALK P 80 U/L Normal 45-117 [facility] Comment on above: Performed By: #### L 501.9985, L500.4100, L500.4050, L100.0500, L501.9520, L506.1000 #### [facility] [address] [place], [address] ALT [Catalytic activity/Vol] 18 U/L Normal 13-56 [facility] Comment on above: Performed By: #### L 501.9985, L500.4100, L500.4050, L100.0500, L501.9520, L506.1000 #### [facility] [address] [place], [address] AST [Catalytic activity/Vol] 12 U/L Low 15-37 [facility] Comment on above: Performed By: #### L 501.9985, L500.4100, L500.4050, L100.0500, L501.9520, L506.1000 #### [facility] [address] [place], [address] Bilirubin [Mass/Vol] 0.50 mg/dL Normal 0.20-1.00 [facility] Comment on above: Result Comment: For patients on eltrombopag therapy, use of Dimension Irons TBIL is not recommended. Performed By: #### L 501.9985, L500.4100, L500.4050, L100.0500, L501.9520, L506.1000 #### [facility] [address] [place], [address] BUN/CRE 18.4 RATIO Normal 10-20 [facility] Comment on above: Performed By: #### L 501.9985, L500.4100, L500.4050, L100.0500, L501.9520, L506.1000 #### [facility] [address] [place], [address] CA,Total 9.1 mg/dL Normal 8.5-10.1 [facility] Comment on above: Performed By: #### L 501.9985, L500.4100, L500.4050, L100.0500, L501.9520, L506.1000 #### [facility] [address] [place], [address] Chloride [Moles/Vol] 108 mmol/L High 98-107 [facility] Comment on above: Performed By: #### L 501.9985, L500.4100, L500.4050, L100.0500, L501.9520, L506.1000 #### [facility] [address] [place], [address] CO2 [Moles/Vol] 30.0 mmol/L Normal 21.0-32.0 [facility] Comment on above: Performed By: #### L 501.9985, L500.4100, L500.4050, L100.0500, L501.9520, L506.1000 #### [facility] [address] [place], [address] Creatinine [Mass/Vol] 0.92 mg/dL Normal 0.55-1.02 [facility] Comment on above: Result Comment: The validity of the calculated GFR GFRAA in patients over 70 years has not been determined. Clinical correlation is essential. Performed By: #### L 501.9985, L500.4100, L500.4050, L100.0500, L501.9520, L506.1000 #### [facility] [address] [place], [address] EST GFR - AA 76 mL/min Normal >60 [facility] Comment on above: Result Comment: Afri can Armenian GFR Calc Performed By: #### L 501.9985, L500.4100, L500.4050, L100.0500, L501.9520, L506.1000 #### [facility] [address] [place], [address] GAP 4 Low 5-15 [facility] Comment on above: Performed By: #### L 501.9985, L500.4100, L500.4050, L100.0500, L501.9520, L506.1000 #### [facility] [address] [place], [address] GFR/1.73 sq M.predicted among non-blacks MDRD (S/P/Bld) [Vol rate/Area] 63 mL/min/{1.73_m2} Normal >60 [facility] Comment on above: Result Comment: Non- GFR Calc Performed By: #### L 501.9985, L500.4100, L500.4050, L100.0500, L501.9520, L506.1000 #### [facility] [address] [place], [address] Globulin (S) [Mass/Vol] 3.4 g/dL Normal 2.2-4.2 [facility] Comment on above: Performed By: #### L 501.9985, L500.4100, L500.4050, L100.0500, L501.9520, L506.1000 #### [facility] [address] [place], [address] Glucose [Mass/Vol] 103 mg/dL Normal 74-106 [facility] Comment on above: Result Comment: Fast ing Glucose result from 100 to 125 mg/dL suggests IMPAIRED HOMEOSTASIS per A.D.A. criteria. Performed By: #### L 501.9985, L500.4100, L500.4050, L100.0500, L501.9520, L506.1000 #### [facility] [address] [place], [address] Potassium [Moles/Vol] 3.8 mmol/L Normal 3.5-5.1 [facility] Comment on above: Performed By: #### L 501.9985, L500.4100, L500.4050, L100.0500, L501.9520, L506.1000 #### [facility] [address] [place], [address] Sodium [Moles/Vol] 142 mmol/L Normal 136-145 [facility] Comment on above: Performed By: #### L 501.9985, L500.4100, L500.4050, L100.0500, L501.9520, L506.1000 #### [facility] [address] [place], [address] T PROT 6.9 g/dL Normal 6.4-8.2 [facility] Comment on above: Performed By: #### L 501.9985, L500.4100, L500.4050, L100.0500, L501.9520, L506.1000 #### [facility] [address] [place], [address] Urea nitrogen [Mass/Vol] 17 mg/dL Normal 7-18 [facility] Comment on above: Performed By: #### L 501.9985, L500.4100, L500.4050, L100.0500, L501.9520, L506.1000 #### [facility] [address] [place], [address] Hemoglobin A8dFysqlak By: Bernard Vigil on 04-14-2024 HbA1c (Bld) [Mass fraction] 5.4 % Normal 3.8-5.6 [facility] Comment on above: Result Comment: Norm al < 5.7 % Prediabetic 5.7 - 6.4 % Diabetic >or= 6.5 % Please note range changes. Performed By: #### L 501.9985, L500.4100, L500.4050, L100.0500, L501.9520, L506.1000 #### [facility] [address] [place], [address] LIPID PANEL (EXTERNAL)on HDC-L 71 mg/dL Abnormal - 41 mg/dL [facility] LDL Chol, calculated 73 [facility] Lipid Profileon 04-14-2024 Cholesterol [Mass/Vol] 162 mg/dL Normal 200 [facility] Comment on above: Result Comment: <200 mg/dL Desirable 200-240 mg/dL Borderline >240 mg/dL High Risk Performed By: #### L 501.9985, L500.4100, L500.4050, L100.0500, L501.9520, L506.1000 #### [facility] [address] [place], [address] Cholesterol in HDL [Mass/Vol] 71 mg/dL Normal [facility] Comment on above: Result Comment: The drugs N-Acetylcysteine and Metamizole may falsely depress this assay. Reference Range HDL <40 mg/dL Low HDL Cholesterol HDL >or= 60 mg/dL High HDL Cholesterol Performed By: #### L 501.9985, L500.4100, L500.4050, L100.0500, L501.9520, L506.1000 #### [facility] [address] [place], [address] Cholesterol in LDL [Mass/Vol] 73 mg/dL Normal 0-130 [facility] Comment on above: Performed By: #### L 501.9985, L500.4100, L500.4050, L100.0500, L501.9520, L506.1000 #### [facility] [address] [place], [address] Cholesterol in VLDL [Mass/Vol] 18 mg/dL Normal 5-40 [facility] Comment on above: Performed By: #### L 501.9985, L500.4100, L500.4050, L100.0500, L501.9520, L506.1000 #### [facility] [address] [place], [address] Triglyceride [Mass/Vol] 92 mg/dL Normal [facility] Comment on above: Result Comment: The drugs N-Acetylcysteine and Metamizole may falsely depress this assay. Serum Triglycerides Reference Interval Normal <150 mg/dL Borderline high 150 - 199 mg/dL High 200 - 499 mg/dL Very High > or = 500 mg/dL Performed By: #### L 501.9985, L500.4100, L500.4050, L100.0500, L501.9520, L506.1000 #### [facility] [address] [place], [place], [address] No Panel Informationon 04-14 Interpretation and review of laboratory results Abnormal [facility] No Panel InformationOrdered By: Becky Vigil on 04-14-2024 [facility] TSH (EXTERNAL)on 04-14-2024 TSH Qn 4.070 m[IU]/L Abnormal [facility] Thyroid Stim Hormone (TSH)on 04-14-2024 TSH 4.070 uIU/mL High 0.358-3.740 [facility] Comment on above: Performed By: #### L 501.9985, L500.4100, L500.4050, L100.0500, L501.9520, L506.1000 #### [facility] [address] [place], [place], [address] Vitamin D,25 Hydroxyon 04-14 Vitamin D 25-OH 49.8 ng/mL Normal [facility] Comment on above: Result Comment: Slime min D 25(OH) Status Range Deficiency <20 ng/mL (50nmol/L) Insufficiency 20 - 30 ng/mL (50 - 75 nmol/L) Sufficiency 30 - 100 ng/mL (75 - 250 nmol/L) Toxicity >100 ng/mL (>250 nmol/L) Performed By: #### L 501.9985, L500.4100, L500.4050, L100.0500, L501.9520, L506.1000 #### [facility] [address] [place], [place], [address] CNOVon 04-04-2024 CNOV Office Visit (AGINTMLW) PORFIRIO PADILLA ([id number]) 1950 F Date Time Provider Department 04/04/24:20 AM OJ HU AGINTMLW During your visit today, we recorded the following information about you: Temperature Pulse Respiration Blood pressure 97.9 degrees 73/minute 16/minute 116/74 Weight Height 73.5 kg 1.549 m Oj Hu, NENA.BREAK OFF WORKER 04/06/2024 7:15 AM Signed Porfirio Padilla is a 73 year old female here for a Medicare wellness visit. PMH HTN, GERD, HLD. Patient denies changes in health since last office visit. Reports feeling well. Denies concerns or complaints today. She reports she has colonoscopy and EGD with Dr Siegel in April. She reports increase gas and abd cramping at times. She was started on zoloft in August for irritability. She reports occasional irritable but feels she does not need this. She occasionally feels down. States her son has stopped talking to her. This bothers her. States he has pulled away. States this occurred after his father . He is not talking to his sisters. I reviewed patients past medical, surgical, social, and family histories today and updated chart. Allergies, chronic medications, and supplements were also reviewed and list is now up to date. HTN: Ms. Padilla indicates that she is feeling well and denies any symptoms referable to elevated blood pressure. Specifically denies headache, chest pain, palpitations, dyspnea, peripheral edema, claudication symptoms, orthopnea, fatigue, and PND. Patient denies any side effects of her medication(s) and is compliant with their regimen. She does not check BP's generally. Porfirio works out regularly 4 times per week with walking. She watches her diet for sodium, low fat and low cholesterol generally not very much. Hyperlipidemia. Ms. Padilla reports doing well on current therapy of atorvastatin (Lipitor). Denies side effects of muscle weakness or achiness. GERD: chronic stable. She is taking Protonix 40 mg daily. She does have episodic flares and will take Tums which is effective. Flares about once a week. Will occur at night. Takes tums and resolves. She tries to not eat anything after 9 pm. Chocolate is a trigger for her symptoms. Limits to 3 cups coffee a day. Drinks 1-3 cans of beer at most a day. Sometimes not every day. She does see Dr Siegel for management. She is due to see Dr Pearson next week. Urinary urgency: she is taking ditropan for this twice daily. She is tolerating this well. No longer waking at night to urinate. Previously was getting up several times a night. Advanced Directives: LW and DPOA-HC and have these documents in chart. Her daughters are her decision makers. Charissa Montana and Rosalee Ruiz. Preventative: she has had 5 COVID vaccines. She up to date with her flu, pneumonia, and shingles vaccines. She does not exercise. She does not smoke. Drinks 1-3 cans a beer at most a day. She had her colonoscopy with Dr Siegel 12/19/20. Reports having polyps and repeat 5 yrs. Medicare Health Risk Assessment General Health Very good Exercise: Minutes/Day 0 min Exercise: Days/Week 0 days Alcohol: Daily Use 4 or more times a week Alcohol: Drinks/Day 1 or 2 Alcohol: 6 or more drinks Less than monthly Feel off balance A couple times a week. Denies falls. Concerns: Teeth/Dentures Partial, no problems Concerns: Sexual function Denies Troubled by feelings Rarely, would like to ween off zoloft. Frequency: Eating healthy diet Daily ADLs requiring help None Safety precautions in home/vehicle Always Smoke, vape, chews tobacco Denies Difficulty hearing Denies Difficulty seeing Wears glasses Current Providers Specialists: I have reviewed specialist-related care of the patient in the medical record. Current care team: Patient Care Team: Oj Hu APRN.BREAK OFF WORKER as PCP - General Yovany Nicole MD (Gastroenterology) Ashish Johnson MD (Safety Sealer) Mauri Miguel MD (Dermatology) Anali Ibarra OD (Optometry) Medical/Family history review Reviewed and updated problem list, medical/surgical/fam autumn/social history, medications, and allergies. Opioid use review Opioid Medications (last 90 days) No data to display Anxiety/Depression screening PHQ-9 Score: 2 (Minimal Depression) Recommendation: no further intervention at this time Cognitive screening Mini Cog Score: 4 Cognitive screening reviewed and No further action needed (score 3-5). Functional Observation Was the patient's Timed Up AND Go test unsteady or >= 12 seconds? No Advance Care Planning Surrogate decision maker and/or advance care plan documented Measurements BP 116/74 Pulse 73 Temp 36.6 ?C (97.9 ?F) Resp 16 Ht 154.9 cm (5' 1) Wt 73.5 kg (162 lb) SpO2 95% BMI 30.61 kg/m? Vision Screening: Follows with optometry/ophthalmol ogy Right: 20/25 Left: 20/ (more content not included)... Normal [facility] BD DXA - AXIAL SKELETONon BD DXA - AXIAL SKELETON Final Report DATE OF EXAM: Mar 19 2020 3:17PM LDX 0804 - BD DXA - AXIAL SKELETON / PROCEDURE REASON: Post-menopausal Physician Interpretation EXAM TITLE: BONE MINERAL DENSITOMETRY COMPARISON: 4 CLINICAL INDICATION/HISTORY: Postmenopausal TECHNIQUE: DXA [employer] v,11.4 examination was performed on the lumbar spine and hip. FINDINGS: 1. L1-L4 excluding L3 BMD is 1.18 g/cm2 which is 101% of peak bone mass compared to young normals which is 0.1 standard deviations relative to the mean of young normals (T-score). According to the World Health Organization criteria, this would be classified as normal . 2. Left hip BMD is 0.94 g/cm2 which is 93% of peak bone mass compared to young normals which is -0.5 standard deviations relative to the mean of young normals (T-score). According to the World Health Organization criteria, this would be classified as normal . 3. Left femoral neck BMD is 0.78 g/cm2 which is 75% of peak bone mass compared to young normals which is -1.9 standard deviations relative to the mean of young normals (T-score). According to the World Health Organization criteria, this would be classified as osteopenia. IMPRESSION: Osteopenia, identified at the left femoral neck Compared to the prior study, no statistically significant change of bone mineral density FRAX left femur: 10-year absolute fracture risk: - major osteoporotic fracture = 17.5 % - hip fracture = 3.3 % - A 10 year probability of hip fracture greater than or equal to 3% or a 10 year probability of any major osteoporosis-related fracture greater than or equal to 20% should be considered for treatment. - All recommendations and calculations are to be considered as guidelines and should not replace sound clinical judgement - Caution: Fracture risk may be increased independent of BMD in patients with corticosteroid use, age greater than 65 years, or a history of prior fragility fracture. FRAX is a trademark of the [employer]'s [facility] [employer] Disease, a WHO Collaborating [employer]. RELATIVE FRACTURE RISK TABLE NOTE: This table applies to post-menopausal females. T-score Fracture risk 0 average risk for normal 40 year old -1 2 times the normal -2 4 times the normal -3 8 times the normal etc. GENERAL RECOMMENDATIONS FOR PREVENTION OF BONE LOSS: 1. 1200 mg - 1500 mg calcium per day if no history of renal calculi for adults 50 years and over. 2. 800 - 1000 International Units of vitamin D3 per day if no history of renal calculi for adults 50 years and over. 3. Weight bearing exercise 4. Discontinue smoking 5. Avoid excessive use of caffeine, soft drinks, and alcoholic beverages. The National Osteoporosis Foundation recommends that treatment be considered for patients with T-scores of -2 or lower (-1 or lower if patient at high risk for accelerated bone loss). Terrazzo Roller: [place] Transcribe Date/Time: Mar 19 2020 4:37P Dictated by : MONET LEGER MD This examination was interpreted and the report reviewed and electronically signed by: MONET LEGER MD on Mar 19 2020 4:39PM EST Normal [facility] XR HIP 3V PELV+ AP/LAT RTon 03-12-2020 XR HIP 3V PELV+ AP/LAT RT Final Report DATE OF EXAM: Mar 12 2020 3:15PM LDX 5352 - XR HIP 3V PELV+ AP/LAT RT / PROCEDURE REASON: Right hip pain Physician Interpretation EXAMINATION: XR HIP 3V PELV+ AP/LAT RT CLINICAL HISTORY: Pt. states flare ups of burning sensation in hip area Right hip pain Technique: XR HIP 3V PELV+ AP/LAT RT -- RIGHT with 2 views on 3 images Comparison: None RESULT: No fracture or dislocation. Right hip joint is maintained. Small bilateral bony protuberances at the femoral head and neck junction. SI joints and pubic symphysis are intact. Degenerative changes in the lumbar spine. IMPRESSION: No acute osseous finding. Right hip joint is maintained. Terrazzo Roller: [place] Transcribe Date/Time: Mar 12 2020 3:23P Dictated by : MARIALUISA BAUMANN MD This examination was interpreted and the report reviewed and electronically signed by: MARIALUISA BAUMANN MD on Mar 12 2020 3:24PM EST Normal [facility] KAYLA SCREENINGon 01-09-2020 KAYLA SCREENING Final Report DATE OF EXAM: Jan 09 2020 3:18PM LDW 0581 - KAYLA SCREENING / PROCEDURE REASON: Encounter for screening mammogram for breast cancer Physician Interpretation #[id number] - [facility] SCREENING BILATERAL DIGITAL SCREENING MAMMOGRAM WITH CAD: 01/09/2020 HISTORY: Routine screening mammogram. Patient reports no breast problems. RESULT: TECHNIQUE: The study was acquired using full field digital technology and interpreted from soft copy. Current study was also evaluated with a Computer Aided Detection (CAD). Comparison is made to exams dated: 12/07/2018 mammogram, 09/30/2017 mammogram, 06/25/2016 mammogram, 04/23/2015 mammogram, 12/29/2012 mammogram, and 04/10/2014 mammogram - [facility]. There are scattered fibroglandular elements in both breasts. No significant masses, calcifications, or other findings are seen in either breast. There has been no significant interval change. IMPRESSION: NEGATIVE There is no mammographic evidence of malignancy. A 1 year screening mammogram is recommended. Mary harman/kenneth:01/09/2020 15:57:58 Rouge Presser(s): Daniele Purcell (Yanique)(M), [facility] letter sent: Normal over 40 Mammogram BI-RADS: 1 Negative Multiple national specialty organizations have released breast cancer screening guidelines for women at average risk for developing breast cancer - guidelines that are based on both evidence and opinion, yet differ on when to start and how often to screen for breast cancer. With representation from Breast Imaging, Internal Medicine, Women's Health, Family Medicine, and Medical/Surgical Oncology, the [facility] has carefully reviewed the data and reached the following consensus: 1) All women should engage in shared decision-making with their providers to decide when to start and how often to screen; 2) All women should have the opportunity to start screening mammography at age 40; 3) For women ages 45-55, we recommend annual screening mammograms; 4) For women ages 55 and over, we support both the transition from an annual to a biennial interval if this aligns more with patient's values and preferences, or continuation with annual screening; 5) All women should discuss with their providers when to stop screening mammograms. Terrazzo Roller: Kenneth Transcribe Date/Time: Jan 09 2020 3:08P Dictated by : MARY TOWNSEND MD This examination was interpreted and the report reviewed and electronically signed by: MARY TOWNSEND MD on Jan 09 2020 3:57PM EST Normal [facility] Vital Signs Date Time Vital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 Comment on above: Postponed from 11/09 (Declined at this time) Start: 09-09-2022 ANNUAL PCP TEAM 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 DANIAL DISEASE VISIT ANNUAL PCP TEAM CHRONIC DISEASE VISIT [facility] Start: 07-23-2022 Adult depression screening assessment DEPRESSION SCREENING [facility] Start: 07-23-2022 ANNUAL PCP TEAM 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 DANIAL DISEASE VISIT ANNUAL PCP TEAM CHRONIC DISEASE VISIT [facility] Start: 07-23-2022 BP CONTROLLED (<130/80) BP CONTROLLE D (<130/80) [facility] Start: 03-10-2022 End: 05-10-2022 25-hydroxyvitamin D3 [Mass/volume] in Serum or Plasma VITAMIN D 25 HYDROXY Lab Routine Vitamin D deficiency Expected: 03/10/2022, Expires: 05/10/[address] [facility] Work Phone: Comment on above: Expected: 03/10/2022 , Expires: 05/10/2022 Start: 03-10-2022 End: 05-10-2022 CBC panel - Blood by Automated count CBC Lab Routine Essential hypertension Expected: 03/10/2022, Expires: 05/10/[address] [facility] Work Phone: Comment on above: Expected: 03/10/2022 , Expires: 05/10/2022 Start: 03-10-2022 End: 05-10-2022 Comprehensive metabolic 2000 panel - Serum or Plasma COMP METABOLIC PANEL Lab Routine Essential hypertension Expected: 03/10/2022, Expires: 05/10/[address] [facility] Work Phone: Comment on above: Expected: 03/10/2022 , Expires: 05/10/2022 Start: 03-10-2022 End: 05-10-2022 Hemoglobin A1c in Blood HGB A1C Lab Routine Elevated blood sugar Expected: 03/10/2022, Expires: 05/10/[address] [facility] Work Phone: Comment on above: Expected: 03/10/2022 , Expires: 05/10/2022 Start: 03-10-2022 End: 05-10-2022 Lipid 1996 panel - Serum or Plasma LIPID PANEL BASIC Lab Routine Hyperlipidemia, unspecified hyperlipidemia type Expected: 03/10/2022, Expires: 05/10/[address] [facility] Work Phone: Comment on above: Expected: 03/10/2022 , Expires: 05/10/2022 Start: 03-10-2022 End: 05-10-2022 Thyrotropin [Units/volume] in Serum or Plasma TSH BLD Lab Routine Screening for thyroid disorder Expected: 03/10/2022, Expires: 05/10/[address] [facility] Work Phone: Comment on above: Expected: 03/10/2022 , Expires: 05/10/2022 Start: 02-24-2022 End: 04-26-2022 Hemoglobin A1c in Blood HGB A1C Lab Routine Medication management Expected: 02/24/2022, Expires: 04/26/[address] [facility] Work Phone: Comment on above: Expected: 02/24/2022 , Expires: 04/26/2022 Start: 02-24-2022 End: 04-26-2022 Lipid 1996 panel - Serum or Plasma LIPID PANEL BASIC Lab Routine Essential hypertension Expected: 02/24/2022, Expires: 04/26/[address] [facility] Work Phone: Comment on above: Expected: 02/24/2022 , Expires: 04/26/2022 Start: 02-24-2022 End: 04-26-2022 Renal function 2000 panel - Serum or Plasma RENAL FUNCTION PANEL Lab Routine Medication management Expected: 02/24/2022, Expires: 04/26/[address] [facility] Work Phone: Comment on above: Expected: 02/24/2022 , Expires: 04/26/2022 Start: 02-24-2022 End: 04-26-2022 SCHEDULE LAB TESTING SCHEDULE LAB TESTING Lab Routine Expected: 02/24/2022, Expires: 04/26/[address] [facility] Work Phone: Comment on above: Expected: 02/24/2022 , Expires: 04/26/2022 Start: 01-22-2022 Influenza vaccination INFLUENZA (#1) [facility] Start: 01-15-2022 Mammography MAMMOGRAM [facility] Start: 11-09-2021 COVID-19 VACCINE (5 - Booster for Moderna series) COVID-19 VACCINE (5 - Booster for Moderna series) [facility] Start: 05-24-2021 ADVANCE DIRECTIVE DISCUSSION ADVANCE DIRECTIVE DISCUSSION [facility] Start: 05-24-2021 DEPRESSION ASSESSMENT DEPRESSION ASS ESSMENT [facility] Start: 03-12-2021 BP CONTROLLED (<130/80) BP CONTROLLE D (<130/80) [facility] Start: 01-19-2019 FECAL OCCULT BLOOD FECAL OCCULT BLOO D [facility] Start: 01-19-2019 Screening for malign ant neoplasm of colon Fecal Occult Blood [facility] Start: 01-17-2019 PNEUMOCOCCAL: 65+ (2 - PCV) PNEUMOCOCCAL: 65+ (2 - PCV) [facility] Start: 1993 COLOGUARD (FIT-DNA) COLOGUARD (FIT-D NA) [facility] Start: [address] COLONOGRAPHY [facility] Start: 1993 Screening for malign ant neoplasm of colon [facility] Start: 1993 SIGMOIDOSCOPY SIGMOIDOSCOPY [facility] Start: 1966 Anxiety Screening Anxiety Screening [facility] Start: 1966 Depression Screening Depression Scre ening [facility] End: 05-04-2025 DBT Breast - bilateral screening KAYLA SCREENING W DARELL Radiology Routine Encounter for screening mammogram for malignant neoplasm of breast 1 Occurrences starting 04/04/2024 until 05/04/[address] [facility] Work Phone: Comment on above: 1 Occurrences starti ng 04/04/2024 until 05/04/2025 End: 04-20-2024 DXA-AXIAL SKELETON DXA-AXIAL SKELETON Radiology Routine Post-menopausal 1 Occurrences starting 03/22/2023 until 04/20/[address] [facility] Work Phone: Comment on above: 1 Occurrences starti ng 03/22/2023 until 04/20/2024 DXA-AXIAL SKELETON DXA-AXIAL SKE LETON Radiology Routine Post-menopausal 04/14/2023 11:[address] [facility] Work Phone: End: 03-10-2023 ECG COMPLETE ECG COMPLETE ECG Routine Essential hypertension 1 Occurrences starting 03/10/2022 until 03/10/[address] [facility] Work Phone: Comment on above: 1 Occurrences starti ng 03/10/2022 until 03/10/2023 End: 03-22-2024 ECG COMPLETE ECG COMPLETE ECG Routine Encounter for lipid screening for cardiovascular disease 1 Occurrences starting 03/22/2023 until 03/22/[address] [facility] Work Phone: Comment on above: 1 Occurrences starti ng 03/22/2023 until 03/22/2024 ECG COMPLETE ECG COMPLETE ECG Routine Encounter for lipid screening for cardiovascular disease 04/14/2023 10:[address] [facility] Work Phone: End: 09-17-2023 EXERCISE STRESS ECG (WITHOUT IMAGING) EXERCISE STRESS ECG (WITHOUT IMAGING) Cardiology Routine Chest pain, unspecified type 1 Occurrences starting 09/16/2022 until 09/17/[address] [facility] Work Phone: Comment on above: 1 Occurrences starti ng 09/16/2022 until 09/17/2023 End: 04-20-2024 KAYLA SCREENING KAYLA SCREENING Radiology Routine Encounter for screening mammogram for malignant neoplasm of breast 1 Occurrences starting 03/22/2023 until 04/20/[address] [facility] Work Phone: Comment on above: 1 Occurrences starti ng 03/22/2023 until 04/20/2024 KAYLA SCREENING KAYLA SCREENING Ra diology Routine Encounter for screening mammogram for malignant neoplasm of breast 04/14/2023 11:[address] [facility] Work Phone: End: 10-16-2023 Non-invas physiologic std extremity art 2 level US ANKLE BRACHIAL INDICES Radiology Routine Encounter for screening for cardiovascular disorders 1 Occurrences starting 09/16/2022 until 10/16/[address] [facility] Work Phone: Comment on above: 1 Occurrences starti ng 09/16/2022 until 10/16/2023 PT PLAN OF CARE CERTIFICATION PT PLAN OF CARE CERTIFICATION Procedures Routine Acute pain of right knee Ordered: 08/29/[address] [facility] Work Phone: Comment on above: Ordered: 08/29/2021 End: 04-09-2023 Screening mammography bi 2-view breast inc cad [facility] SCREENING Radiology Routine Encounter for screening mammogram for malignant neoplasm of breast 1 Occurrences starting 03/10/2022 until 04/09/[address] [facility] Work Phone: Comment on above: 1 Occurrences starti ng 03/10/2022 until 04/09/2023 End: 03-24-2022 Screening mammography bi 2-view breast inc cad [facility] Work Phone: Comment on above: 1 Occurrences starti ng 03/24/2022 until 03/24/2022 [facility] Immunizations Immunization Date Immunization Notes Care Provider Lisa velazquez 04-03-2024 influenza, high dose seasonal, preservative-free Oj Thania LEGAL INSTRUCTOR.BREAK OFF WORKER Work Phone: [facility] 04-03-2024 influenza virus vacc ine, unspecified formulation Oj Thania LEGAL INSTRUCTOR.BREAK OFF WORKER Work Phone: [facility] 03-22-2023 influenza (HD-IIV4) vaccine, age 65+ yr, high dose, quadrivalent, PF (FLUZONE HIGH-DOSE) Oj Thania LEGAL INSTRUCTOR.BREAK OFF WORKER Work Phone: [facility] 03-22-2023 influenza virus vacc ine, unspecified formulation Oj Thania LEGAL INSTRUCTOR.BREAK OFF WORKER Work Phone: [facility] 03-10-2022 influenza, high-dose , quadrivalent vaccine (FLUZONE HIGH DOSE QUADRIVALENT) Oj Hu LEGAL INSTRUCTOR.BREAK OFF WORKER Work Phone: [facility] 03-10-2022 pneumococcal (PCV20) vaccine, 20 valent (PREVNAR 20) Oj Hu LEGAL INSTRUCTOR.BREAK OFF WORKER Work Phone: [facility] 03-10-2022 pneumococcal Conjuga te, unspecified formulation Oj Hu LEGAL INSTRUCTOR.BREAK OFF WORKER Work Phone: [facility] Work Phone: 03-11-2021 influenza, high-dose , quadrivalent vaccine (FLUZONE HIGH DOSE QUADRIVALENT) Saundra Alcaraz PT Work Phone: [facility] 08-19-2020 Covid (Moderna) [facility] 07-22-2020 Covid (Moderna) [facility] 05-22-2020 zoster vaccine recombinant Saundra Kieran PT Work Phone: [facility] 03-22-2020 zoster vaccine recombinant Saundra Kieran PT Work Phone: [facility] 03-12-2020 influenza, high-dose , quadrivalent vaccine (FLUZONE HIGH DOSE QUADRIVALENT) Saundra Kieran PT Work Phone: [facility] 03-16-2019 influenza, high dose seasonal, preservative-free Oj Thania LEGAL INSTRUCTOR.BREAK OFF WORKER Work Phone: [facility] 02-25-2018 influenza, high dose seasonal, preservative-free Oj Thania LEGAL INSTRUCTOR.BREAK OFF WORKER Work Phone: [facility] 01-17-2018 pneumococcal polysaccharide vaccine, 23 valent Saundra Kieran PT Work Phone: [facility] 12-18-2016 zoster vaccine, live Edgar e Thania LEGAL INSTRUCTOR.BREAK OFF WORKER Work Phone: [facility] 06-11-2016 tetanus toxoid, redu bella diphtheria toxoid, and acellular pertussis vaccine, adsorbed Saundra Kieran PT Work Phone: [facility] 02-26-2016 pneumococcal conjuga te vaccine, 7 valent Saundra Kieran PT Work Phone: [facility] 02-20-2016 influenza, high dose seasonal, preservative-free Saundra Kieran PT Work Phone: [facility] 03-22-2015 influenza virus vacc ine, unspecified formulation Saundra Kieran PT Work Phone: [facility] 02-21-2014 influenza virus vacc ine, unspecified formulation Saundra Kieran PT Work Phone: [facility] 03-20-2009 novel influenza-H1N1 -09, preservative-free, injectable Oj Thania LEGAL INSTRUCTOR.BREAK OFF WORKER Work Phone: [facility] Payers Date Payer Category Payer Self-pay [id number] 2021 Medicare AETNA MEDICARE A ETNA MEDICARE HMO [id number] 2021-Present [phone] [address] [place] [address] [facility] [id number] 2021 Medicare AETNA MEDICARE A ETNA MEDICARE HMO [id number] 2021-Present [phone] [address] [place] [address] [facility] [id number] 2021 Medicare (Managed Care) [employer] ME DICARE [id number] 2021 Private Health Insurance 101 [id number] Medicare SELF PAY INSURANCE [id number] Unknown [id number] Unknown [id number] Unknown [id number] Social History Date Type Detail Facility Tobacco smoking stat [facility] Unknown if ever smoked [facility] Work Phone: Start: 1950 Sex Assigned At Female [facility] Work Phone: Start: 12-15-[address] [facility] Never smoked tobacco [facility] Start: 12-15-2011 Tobacco use and exposure Smokeless tobacco non-user [facility] Start: 07-23-2021 End: 04-04-2024 Alcohol intake Current drinker of alcohol (finding) [facility] Start: 01-02-2016 History SDOH Alcohol Comment rare/ Type: beer, hard liquor, and wine; Patient has not been in alcohol treatment program; Comments: Drinks 0-5 alcohol drinks per week [facility] Start: 1950 Sex Assigned At Not on file [facility] Start: 08-03-2021 End: 08-13-2021 Exposure to SARS-CoV-2 (event) Unable to assess [facility] Start: 08-30-2021 End: 03-24-2022 Exposure to SARS-CoV-2 (event) Not sure [facility] Start: 03-22-2023 End: 04-04-2024 History of Social function [facility] Start: 03-22-2023 End: 04-04-2024 [facility] Utilities [facility] Has the [employer], [employer], or water [employer] threatened to shut off services in your home in past 12Mo No [facility] Are you now , , , , never or living with a partner? [facility] How often to you hav e a drink containing alcohol? 4 or more times a week [facility] How many standard drinks containing alcohol do you have on a typical day? 1 or 2 [facility] How often do you hav e 6 or more drinks on 1 occasion? Never [facility] Start: 04-24-2012 How hard is it for y ou to pay for the very basics like food, housing, medical care, and heating Not hard at all [facility] Do you feel stress - tense, restless, nervous, or anxious, or unable to sleep at night because your mind is troubled all the time - these days [OSQ] Only a little [facility] (I/We) worried mercedes er (my/our) food would run out before (I/we) got money to buy more. Never true [facility] How often do you hav e 6 or more drinks on 1 occasion? Less than monthly [facility] Goals Date Patient Goal Desired Activity /State Functional Status Date Assessment Result Facility 03-28-2014 Are you deaf, or do you have serious difficulty hearing No 03/28/2014 2:51 PM Lacey Segundo Ma No [facility] 03-28-2014 Are you blind, or do you have serious difficulty seeing, even when wearing glasses No 03/28/2014 2:51 PM Lacey Segundo Ma No [facility] 03-28-2014 Do you have serious difficulty walking or climbing stairs No 03/28/2014 2:51 PM Lacey Segundo Ma No [facility] 03-28-2014 Do you have difficul ty dressing or bathing No 03/28/2014 2:51 PM Lacey Segundo Ma No [facility] 03-28-2014 Because of a physica l, mental, or emotional condition, do you have difficulty doing errands alone such as visiting a physician's office or shopping No 03/28/2014 2:51 PM Lacey Segundo Ma No [facility] Mental Status Date Assessment Result Facility 03-28-2014 Because of a physica l, mental, or emotional condition, do you have serious difficulty concentrating, remembering, or making decisions No 03/28/2014 2:51 PM EST Lacey Wills Ma No [facility] Clinical Notes 09-10-2020 to 03-14-2025 Anali Nelson - 01/24/2025 10:21 AM Becky Pfeiffer LPN - 01/16/2025 3:19 PM EDTTelephone Encounter - Becky Vigil LPN - 11/22/2024 1:21 PM EDTPatient InstructionsPatient Instructions Note Date & Type Note Facility 03-14-2025 Note HNO ID: [id number] Author: MADISON GARCIA CPhT Service: ? Author Type: Cost Estimating Manager Type: Progress Notes Filed: 03/14/2025 12:27 Note Text: Patient is identified through a medication adherence outreach initiative based on pharmacy claims data from: [facility] Medication Adherence Category: Statins First Review Attribution Status: Correct attribution Medication(s) Atorvastatin 10 mg Last Filled 11/22/24 for 90DS, Next fill due 02/20/25 Medication Status per portal/Epic Reconcile Dispense: Filled late - Greater than 7 days after next fill date Date Filled (MM/DD): 03/05/25 Day Supply: 90 Medication Status per Profile Review: No issues per profile review Patient/provider appropriate for outreach? No Reason patient/provider not appropriate for outreach:Patient filled on time / no adherence concerns to be addressed Madison Garcia CPhT Value Based Care Pharmacy Team [facility] 03-14-2025 Note Patient Outreach (PH POHE) PORFIRIO PADILLA ([id number]) 1950 F Date Time Provider Department 03/14/25 OJ HU During your visit today, we recorded the following information about you: Madison Garcia CPhT 03/14/2025 12:27 PM Signed Patient is identified through a medication adherence outreach initiative based on pharmacy claims data from: [facility] Medication Adherence Category: Statins First Review Attribution Status: Correct attribution Medication(s) Atorvastatin 10 mg Last Filled 11/22/24 for 90DS, Next fill due 02/20/25 Medication Status per portal/Epic Reconcile Dispense: Filled late - Greater than 7 days after next fill date Date Filled (MM/DD): 03/05/25 Day Supply: 90 Medication Status per Profile Review: No issues per profile review Patient/provider appropriate for outreach? No Reason patient/provider not appropriate for outreach:Patient filled on time / no adherence concerns to be addressed Madison Garcia CPhT [facility] Pharmacy Team Allergies As of Date: 03/14/2025 Noted Allergy Reaction MED-HIST 01/02/2016 16 - Unknown Comments: Non Specific Or Non Database Allergies Include: Shrimp (Reaction: Nausea Other Reaction: Vomiting) MORPHINE 12/15/2011 5 - Intolerance 14 - Other: See Comments Comments: wires Pt up-insomnia Date Reviewed: 04/04/2024 Reviewed by: Oj Hu APRN.BREAK OFF WORKER - Fully Assessed Reason for Visit: Allied Health Visit [5] Cmt: Medication Adherence Outreach Prescriptions as of 03/14/2025 - atorvastatin (LIPITOR) 10 mg tablet TAKE 1 TABLET BY MOUTH ONCE DAILY before bedtime - losartan (COZAAR) 25 mg tablet TAKE 1 TABLET BY MOUTH ONCE DAILY - sertraline (ZOLOFT) 25 mg tablet Take 1 tablet by mouth once daily. - oxybutynin (DITROPAN) 5 mg tablet TAKE 1 TABLET BY MOUTH TWICE DAILY - cholecalciferol (VITAMIN D) 1,000 unit tab tablet Take 1,000 Units by mouth once daily. - inulin (FIBER GUMMIES ORAL) Take by mouth. - hyoscyamine sublingual (LEVSIN SL) 0.125 mg Dissolve 0.125 mg under the tongue every 4 hours as needed. - nystatin (MYCOSTATIN) cream Apply to affected area two times a day. - calcium carbonate (TUMS) 500 mg chew Take 750 mg by mouth once daily. - pantoprazole DR (PROTONIX) 40 mg tablet Take 40 mg by mouth once daily. - BACILLUS COAGULANS (PROBIOTIC, B. COAGULANS, ORAL) Take 1 tablet by mouth once daily. - Blood Pressure Test Kit-Large kit - Blood Pressure Monitor kit 1 Kit as directed. - calcium carbonate-vitamin D3 600 mg(1,500mg) -800 unit tab Take by mouth. 20 mcg of Vitamin D 3 and 600 mg of Calcium one daily - omega-3 fatty acids (FISH OIL CONCENTRATE) 1,000 mg cap Take 2 g by mouth twice daily. Problem List As Of Date 03/14/2025 Noted Resolved Urinary urgency [R39.15] Arthritis [M19.90] Psoriasis [L40.9] DJD (degenerative joint disease) [M19.90] Pain in right shoulder [M25.511] 09/10/2020 Elevated blood pressure reading without diagnos* 09/10/2020 Essential hypertension [I10] Hiatal hernia [K44.9] GERD (gastroesophageal reflux disease) [K21.9] Obesity, Class I, BMI 30-34.9 [E66.811] 10/27/2023 Encounter Status:Closed by MADISON GARCIA on 03/14/25 [facility] 01-24-2025 Note HNO ID: [id number] Author: ANALI NELSON, ? Service: ? Author Type: ? Type: Progress Notes Filed: 01/24/2025 10:21 Note Text: [facility] POPULATION HEALTH NAVIGATION OUTREACH Action/FYI Patient Identified by Name and : Yes, via EPIC - no outreach needed Reason for Outreach Care Gap or Scheduling Wellness Visits Care Gap Reviewed:: Controlling Blood Pressure Outreach Outcome/Action Population Health Navigation Workflow Pre-Visit Planning Payer: [employer] Navigation Signature: Anali Nelson January 24, 2025 10:21 AM [facility] 01-24-2025 History of Presen t illness Narrative [facility] POPULATION HEALTH NAVIGATION OUTREACH Action/FYI Patient Identified by Name and : Yes, via EPIC - no outreach needed Reason for Outreach Care Gap or Scheduling Wellness Visits Care Gap Reviewed:: Controlling Blood Pressure Outreach Outcome/Action Population Health Navigation Workflow Pre-Visit Planning Payer: [employer] Navigation Signature: Anali Nelson January 24, 2025 10:21 AM documented in this encounter [facility] 01-24-2025 Note Patient Outreach (AG ACM) PORFIRIO PADILLA ([id number]) 1950 F Date Time Provider Department 01/24/25 ANALI NELSON [facility] During your visit today, we recorded the following information about you: Anali Nelson 01/24/2025 10:21 AM Signed [facility] POPULATION HEALTH NAVIGATION OUTREACH Action/I Patient Identified by Name and : Yes, via EPIC - no outreach needed Reason for Outreach Care Gap or Scheduling Wellness Visits Care Gap Reviewed:: Controlling Blood Pressure Outreach Outcome/Action Population Health Navigation Workflow Pre-Visit Planning Payer: [employer] Navigation Signature: Anali Nelson January 24, 2025 10:21 AM Allergies As of Date: 01/24/2025 Noted Allergy Reaction MED-HIST 01/02/2016 16 - Unknown Comments: Non Specific Or Non Database Allergies Include: Shrimp (Reaction: Nausea Other Reaction: Vomiting) MORPHINE 12/15/2011 5 - Intolerance 14 - Other: See Comments Comments: wires Pt up-insomnia Date Reviewed: 04/04/2024 Reviewed by: Oj Hu APRN.BREAK OFF WORKER - Fully Assessed Reason for Visit: Population Health Navigation Outreach [3910] Cmt: [employer] Attributed Member - Chart Review Prescriptions as of 01/24/2025 - sertraline (ZOLOFT) 25 mg tablet Take 1 tablet by mouth once daily. - oxybutynin (DITROPAN) 5 mg tablet TAKE 1 TABLET BY MOUTH TWICE DAILY - cholecalciferol (VITAMIN D) 1,000 unit tab tablet Take 1,000 Units by mouth once daily. - inulin (FIBER GUMMIES ORAL) Take by mouth. - hyoscyamine sublingual (LEVSIN SL) 0.125 mg Dissolve 0.125 mg under the tongue every 4 hours as needed. - nystatin (MYCOSTATIN) cream Apply to affected area two times a day. - losartan (COZAAR) 25 mg tablet take 1 tablet by mouth once daily. - atorvastatin (LIPITOR) 10 mg tablet Take 1 tablet by mouth once daily. BEFORE BEDTIME - calcium carbonate (TUMS) 500 mg chew Take 750 mg by mouth once daily. - pantoprazole DR (PROTONIX) 40 mg tablet Take 40 mg by mouth once daily. - BACILLUS COAGULANS (PROBIOTIC, B. COAGULANS, ORAL) Take 1 tablet by mouth once daily. - Blood Pressure Test Kit-Large kit - Blood Pressure Monitor kit 1 Kit as directed. - calcium carbonate-vitamin D3 600 mg(1,500mg) -800 unit tab Take by mouth. 20 mcg of Vitamin D 3 and 600 mg of Calcium one daily - omega-3 fatty acids (FISH OIL CONCENTRATE) 1,000 mg cap Take 2 g by mouth twice daily. Problem List As Of Date 01/24/2025 Noted Resolved Urinary urgency [R39.15] Arthritis [M19.90] Psoriasis [L40.9] DJD (degenerative joint disease) [M19.90] Pain in right shoulder [M25.511] 09/10/2020 Elevated blood pressure reading without diagnos* 09/10/2020 Essential hypertension [I10] Hiatal hernia [K44.9] GERD (gastroesophageal reflux disease) [K21.9] Obesity, Class I, BMI 30-34.9 [E66.811] 10/27/2023 Encounter Status:Closed by ANALI NELSON on 01/24/25 [facility] 01-16-2025 History of Presen t illness Narrative Letter mailed to pt. Becky Vigil LPN documented in this encounter [facility] 01-16-2025 Note HNO ID: [id number] Author: BECKY VIGIL LPN Service: ? Author Type: Licensed Nurse Type: Progress Notes Filed: 01/16/2025 15:20 Note Text: Letter mailed to pt. Becky Vigil LPN [facility] 01-16-2025 Note Patient Outreach (AG INTMLW) PORFIRIO PADILLA ([id number]) 1950 F Date Time Provider Department 01/16/25 OJ HU AGINTMLW During your visit today, we recorded the following information about you: Becky Vigil LPN 01/16/2025 3:20 PM Signed Letter mailed to pt. Becky Vigil LPN Allergies As of Date: 01/16/2025 Noted Allergy Reaction MED-HIST 01/02/2016 16 - Unknown Comments: Non Specific Or Non Database Allergies Include: Shrimp (Reaction: Nausea Other Reaction: Vomiting) MORPHINE 12/15/2011 5 - Intolerance 14 - Other: See Comments Comments: wires Pt up-insomnia Date Reviewed: 04/04/2024 Reviewed by: Oj Hu, LEGAL INSTRUCTOR.BREAK OFF WORKER - Fully Assessed Reason for Visit: Well Adult [611] Prescriptions as of 01/16/2025 - sertraline (ZOLOFT) 25 mg tablet Take 1 tablet by mouth once daily. - oxybutynin (DITROPAN) 5 mg tablet TAKE 1 TABLET BY MOUTH TWICE DAILY - cholecalciferol (VITAMIN D) 1,000 unit tab tablet Take 1,000 Units by mouth once daily. - inulin (FIBER GUMMIES ORAL) Take by mouth. - hyoscyamine sublingual (LEVSIN SL) 0.125 mg Dissolve 0.125 mg under the tongue every 4 hours as needed. - nystatin (MYCOSTATIN) cream Apply to affected area two times a day. - losartan (COZAAR) 25 mg tablet take 1 tablet by mouth once daily. - atorvastatin (LIPITOR) 10 mg tablet Take 1 tablet by mouth once daily. BEFORE BEDTIME - calcium carbonate (TUMS) 500 mg chew Take 750 mg by mouth once daily. - pantoprazole DR (PROTONIX) 40 mg tablet Take 40 mg by mouth once daily. - BACILLUS COAGULANS (PROBIOTIC, B. COAGULANS, ORAL) Take 1 tablet by mouth once daily. - Blood Pressure Test Kit-Large kit - Blood Pressure Monitor kit 1 Kit as directed. - calcium carbonate-vitamin D3 600 mg(1,500mg) -800 unit tab Take by mouth. 20 mcg of Vitamin D 3 and 600 mg of Calcium one daily - omega-3 fatty acids (FISH OIL CONCENTRATE) 1,000 mg cap Take 2 g by mouth twice daily. Problem List As Of Date 01/16/2025 Noted Resolved Urinary urgency [R39.15] Arthritis [M19.90] Psoriasis [L40.9] DJD (degenerative joint disease) [M19.90] Pain in right shoulder [M25.511] 09/10/2020 Elevated blood pressure reading without diagnos* 09/10/2020 Essential hypertension [I10] Hiatal hernia [K44.9] GERD (gastroesophageal reflux disease) [K21.9] Obesity, Class I, BMI 30-34.9 [E66.811] 10/27/2023 Letter Text Encounter Status:Closed by BECKY VIGIL on 01/16/25 [facility] 11-22-2024 Telephone encounter Note Pt requesting refills as follows: Last Office Visit:04/04/2024 Next Office Visit:No future follow up Requested Prescriptions Pending Prescriptions Disp Refills sertraline (ZOLOFT) 25 mg tablet 90 tablet 3 Sig: Take 1 tablet by mouth once daily. Please review and advise. Becky Vigil LPN [facility] 11-22-2024 Miscellaneous Notes Pt requesting refills as follows: Last Office Visit:04/04/2024 Next Office Visit:No future follow up Requested Prescriptions Pending Prescriptions Disp Refills sertraline (ZOLOFT) 25 mg tablet 90 tablet 3 Sig: Take 1 tablet by mouth once daily. Please review and advise. Becky Vigil LPN documented in this encounter [facility] 08-16-2024 Note HNO ID: [id number] Author: ADAN CAMACHO MA Service: ? Author Type: Training Facilitator Type: Progress Notes Filed: 08/16/2024 10:55 Note Text: POPULATION HEALTH NAVIGATION OUTREACH Action/FYI Care gaps due: AWV No answer, lvm, sent mcm, updated appt notes. Reason for Outreach Care Gap/HCC or Scheduling Wellness Visits Care Gaps due: Medicare Annual Wellness Visit Patient Contacted: Unable or unnecessary to reach patient: Left message MyChart message sent Updated appointment notes Navigation Signature: Adan Camacho MA August 16, 2024 10:54 AM [facility] 08-16-2024 History of Presen t illness Narrative POPULATION HEALTH NAVIGATION OUTREACH Action/FYI Care gaps due: AWV No answer, lvm, sent mcm, updated appt notes. Reason for Outreach Care Gap/HCC or Scheduling Wellness Visits Care Gaps due: Medicare Annual Wellness Visit Patient Contacted: Unable or unnecessary to reach patient: Left message MyChart message sent Updated appointment notes Navigation Signature: Adan Camacho MA August 16, 2024 10:54 AM documented in this encounter [facility] 08-16-2024 Note Patient Outreach (NE TNAV) PORFIRIO PADILLA ([id number]) 1950 F Date Time Provider Department 08/16/24 ADAN CAMACHO During your visit today, we recorded the following information about you: Adan Camacho MA 08/16/2024 10:55 AM Signed POPULATION HEALTH NAVIGATION OUTREACH Action/FYI Care gaps due: AWV No answer, lvm, sent mcm, updated appt notes. Reason for Outreach Care Gap/HCC or Scheduling Wellness Visits Care Gaps due: Medicare Annual Wellness Visit Patient Contacted: Unable or unnecessary to reach patient: Left message [employer] message sent Updated appointment notes Navigation Signature: Adan Camacho MA August 16, 2024 10:54 AM Allergies As of Date: 08/16/2024 Noted Allergy Reaction MED-HIST 01/02/2016 16 - Unknown Comments: Non Specific Or Non Database Allergies Include: Shrimp (Reaction: Nausea Other Reaction: Vomiting) MORPHINE 12/15/2011 5 - Intolerance 14 - Other: See Comments Comments: wires Pt up-insomnia Date Reviewed: 04/04/2024 Reviewed by: Oj Hu APRN.BREAK OFF WORKER - Fully Assessed Reason for Visit: Population Health Navigation Outreach [3910] Cmt: [employer] high risk attempt 2 Prescriptions as of 08/16/2024 - oxybutynin (DITROPAN) 5 mg tablet TAKE 1 TABLET BY MOUTH TWICE DAILY - cholecalciferol (VITAMIN D) 1,000 unit tab tablet Take 1,000 Units by mouth once daily. - inulin (FIBER GUMMIES ORAL) Take by mouth. - hyoscyamine sublingual (LEVSIN SL) 0.125 mg Dissolve 0.125 mg under the tongue every 4 hours as needed. - nystatin (MYCOSTATIN) cream Apply to affected area two times a day. - losartan (COZAAR) 25 mg tablet take 1 tablet by mouth once daily. - atorvastatin (LIPITOR) 10 mg tablet Take 1 tablet by mouth once daily. BEFORE BEDTIME - sertraline (ZOLOFT) 25 mg tablet Take 1 tablet by mouth once daily. - calcium carbonate (TUMS) 500 mg chew Take 750 mg by mouth once daily. - pantoprazole DR (PROTONIX) 40 mg tablet Take 40 mg by mouth once daily. - BACILLUS COAGULANS (PROBIOTIC, B. COAGULANS, ORAL) Take 1 tablet by mouth once daily. - Blood Pressure Test Kit-Large kit - Blood Pressure Monitor kit 1 Kit as directed. - calcium carbonate-vitamin D3 600 mg(1,500mg) -800 unit tab Take by mouth. 20 mcg of Vitamin D 3 and 600 mg of Calcium one daily - omega-3 fatty acids (FISH OIL CONCENTRATE) 1,000 mg cap Take 2 g by mouth twice daily. Problem List As Of Date 08/16/2024 Noted Resolved Urinary urgency [R39.15] Arthritis [M19.90] Psoriasis [L40.9] DJD (degenerative joint disease) [M19.90] Pain in right shoulder [M25.511] 09/10/2020 Elevated blood pressure reading without diagnos* 09/10/2020 Essential hypertension [I10] Hiatal hernia [K44.9] GERD (gastroesophageal reflux disease) [K21.9] Obesity, Class I, BMI 30-34.9 [E66.811] 10/27/2023 Encounter Status:Closed by ADAN CAMACHO on 08/16/24 [facility] 08-14-2024 Telephone encounter Note pharmacy electronically requesting refills as follows: Last seen 04/04/24 . Last refill 06/13/23 . Requested Prescriptions Pending Prescriptions Disp Refills oxybutynin (DITROPAN) 5 mg tablet [Pharmacy Med Name: oxybutynin chloride 5 mg tablet] 180 tablet 3 Sig: TAKE 1 TABLET BY MOUTH TWICE DAILY Please review and advise. Chapito Mayberry MA [facility] 08-14-2024 Miscellaneous Notes pharmacy electronically requesting refills as follows: Last seen 04/04/24 . Last refill 06/13/23 . Requested Prescriptions Pending Prescriptions Disp Refills oxybutynin (DITROPAN) 5 mg tablet [Pharmacy Med Name: oxybutynin chloride 5 mg tablet] 180 tablet 3 Sig: TAKE 1 TABLET BY MOUTH TWICE DAILY Please review and advise. Chapito Mayberry MA documented in this encounter [facility] 08-13-2024 Note HNO ID: [id number] Author: SHANTE GUTIERREZ MA Service: ? Author Type: Training Facilitator Type: Progress Notes Filed: 08/13/2024 15:40 Note Text: POPULATION HEALTH NAVIGATION OUTREACH Action/ P/C to schedule medicare wellness exam, no answer. Left message for patient to return call. My chart message sent. Reason for Outreach Care Gap/HCC or Scheduling Wellness Visits Care Gaps due: Medicare Annual Wellness Visit Patient Contacted: Unable or unnecessary to reach patient: Left message MyChart message sent Navigation Signature: Shante Gutierrez MA August 13, 2024 3:39 PM [facility] 08-13-2024 History of Presen t illness Narrative POPULATION HEALTH NAVIGATION OUTREACH Action/FYI P/C to schedule medicare wellness exam, no answer. Left message for patient to return call. My chart message sent. Reason for Outreach Care Gap/HCC or Scheduling Wellness Visits Care Gaps due: Medicare Annual Wellness Visit Patient Contacted: Unable or unnecessary to reach patient: Left message [employer] message sent Navigation Signature: Shante Gutierrez MA August 13, 2024 3:39 PM documented in this encounter [facility] 08-13-2024 Note Patient Outreach (NE TNAV) PORFIRIO PADILLA ([id number]) 1950 F Date Time Provider Department 08/13/24 SHANTE GUTIERREZ During your visit today, we recorded the following information about you: Shante Gutierrez MA 08/13/2024 3:40 PM Signed POPULATION HEALTH NAVIGATION OUTREACH Action/FYI P/C to schedule medicare wellness exam, no answer. Left message for patient to return call. My chart message sent. Reason for Outreach Care Gap/HCC or Scheduling Wellness Visits Care Gaps due: Medicare Annual Wellness Visit Patient Contacted: Unable or unnecessary to reach patient: Left message [employer] message sent Navigation Signature: Shante Gutierrez MA August 13, 2024 3:39 PM Allergies As of Date: 08/13/2024 Noted Allergy Reaction MED-HIST 01/02/2016 16 - Unknown Comments: Non Specific Or Non Database Allergies Include: Shrimp (Reaction: Nausea Other Reaction: Vomiting) MORPHINE 12/15/2011 5 - Intolerance 14 - Other: See Comments Comments: wires Pt up-insomnia Date Reviewed: 04/04/2024 Reviewed by: Oj Hu APRN.BREAK OFF WORKER - Fully Assessed Reason for Visit: Population Health Navigation Outreach [3910] Cmt: Tonyefe High Risk- Attempt 1 Prescriptions as of 08/13/2024 - cholecalciferol (VITAMIN D) 1,000 unit tab tablet Take 1,000 Units by mouth once daily. - inulin (FIBER GUMMIES ORAL) Take by mouth. - hyoscyamine sublingual (LEVSIN SL) 0.125 mg Dissolve 0.125 mg under the tongue every 4 hours as needed. - nystatin (MYCOSTATIN) cream Apply to affected area two times a day. - losartan (COZAAR) 25 mg tablet take 1 tablet by mouth once daily. - atorvastatin (LIPITOR) 10 mg tablet Take 1 tablet by mouth once daily. BEFORE BEDTIME - sertraline (ZOLOFT) 25 mg tablet Take 1 tablet by mouth once daily. - oxybutynin (DITROPAN) 5 mg tablet take 1 tablet by mouth twice daily. - calcium carbonate (TUMS) 500 mg chew Take 750 mg by mouth once daily. - pantoprazole DR (PROTONIX) 40 mg tablet Take 40 mg by mouth once daily. - BACILLUS COAGULANS (PROBIOTIC, B. COAGULANS, ORAL) Take 1 tablet by mouth once daily. - Blood Pressure Test Kit-Large kit - Blood Pressure Monitor kit 1 Kit as directed. - calcium carbonate-vitamin D3 600 mg(1,500mg) -800 unit tab Take by mouth. 20 mcg of Vitamin D 3 and 600 mg of Calcium one daily - omega-3 fatty acids (FISH OIL CONCENTRATE) 1,000 mg cap Take 2 g by mouth twice daily. Problem List As Of Date 08/13/2024 Noted Resolved Urinary urgency [R39.15] Arthritis [M19.90] Psoriasis [L40.9] DJD (degenerative joint disease) [M19.90] Pain in right shoulder [M25.511] 09/10/2020 Elevated blood pressure reading without diagnos* 09/10/2020 Essential hypertension [I10] Hiatal hernia [K44.9] GERD (gastroesophageal reflux disease) [K21.9] Obesity, Class I, BMI 30-34.9 [E66.811] 10/27/2023 Encounter Status:Closed by SHANTE GUTIERREZ on 08/13/24 [facility] 05-29-2024 Telephone encounter Note Patient informed. Chapito Mayberry MA [facility] 05-29-2024 Miscellaneous Notes Patient informed. hCapito Mayberry MA ----- Message from Oj Hu APRN.BREAK OFF WORKER sent at 05/29/2024 1:03 PM EST ----- Thyroid levels normal documented in this encounter [facility] 05-29-2024 Telephone encounter Note ----- Message from Oj Hu APRN.BREAK OFF WORKER sent at 05/29/2024 1:03 PM EST ----- Thyroid levels normal [facility] 05-25-2024 Telephone encounter Note Lab orders faxed to [phone]. Becky Vigil LPN [facility] 05-25-2024 Miscellaneous Notes Lab orders faxed to [phone]. Becky Vigil LPN [facility] called requesting new lab as diagnosis code is not covered. New orders placed using R94.6 code. Oj Hu BREAK OFF WORKER to sign orders. Becky Vgiil LPN documented in this encounter [facility] 05-25-2024 Telephone encounter Note [facility] called requesting new lab as diagnosis code is not covered. New orders placed using R94.6 code. Oj Hu BREAK OFF WORKER to sign orders. Becky Vigil LPN [facility] 05-16-2024 Telephone encounter Note ----- Message from Chapito Dotson MA sent at 04/18/2024 9:34 AM EST ----- Patient due for 4 week recheck TSH and T4 after TSH was mildly elevated. Chapito Mayberry MA [facility] 05-16-2024 Miscellaneous Notes ----- Message from Chapito Dotson MA sent at 04/18/2024 9:34 AM EST ----- Patient due for 4 week recheck TSH and T4 after TSH was mildly elevated. Chapito Mayberry MA documented in this encounter [facility] 05-08-2024 Telephone encounter Note Left message informing patient of results. Chapito Mayberry MA [facility] 05-08-2024 Miscellaneous Notes Left message informing patient of results. Chapito Mayberry MA Let pt know her mammogram is stable. No concerns. Follow up one year documented in this encounter [facility] 05-03-2024 Telephone encounter Note Let pt know her mammogram is stable. No concerns. Follow up one year [facility] 04-18-2024 Telephone encounter Note Patient informed of results and recommendations. Reminder placed for recheck. Chapito Mayebrry MA [facility] 04-18-2024 Miscellaneous Notes Patient informed of results and recommendations. Reminder placed for recheck. Chapito Mayberry MA ----- Message from Oj Hu APRN.CNP sent at 04/18/2024 6:59 AM EST ----- Let pt know her CMP and CBC are unremarkable. Tsh mildly elevated. Recommend recheck in 4 wks TSH and t4 Vit d normal Hgb A1c normal documented in this encounter [facility] 04-18-2024 Telephone encounter Note ----- Message from Oj Hu APRN.CNP sent at 04/18/2024 6:59 AM EST ----- Let pt know her CMP and CBC are unremarkable. Tsh mildly elevated. Recommend recheck in 4 wks TSH and t4 Vit d normal Hgb A1c normal [facility] 04-04-2024 Note HNO ID: [id number] Author: OJ HU APRN.CNP Service: ? Author Type: Nurse Practitioner Type: Progress Notes Filed: 04/06/2024 07:15 Note Text: Porfirio Padilla is a 73 year old female here for a Medicare wellness visit. PMH HTN, GERD, HLD. Patient denies changes in health since last office visit. Reports feeling well. Denies concerns or complaints today. She reports she has colonoscopy and EGD with Dr Siegel in April. She reports increase gas and abd cramping at times. She was started on zoloft in August for irritability. She reports occasional irritable but feels she does not need this. She occasionally feels down. States her son has stopped talking to her. This bothers her. States he has pulled away. States this occurred after his father . He is not talking to his sisters. I reviewed patients past medical, surgical, social, and family histories today and updated chart. Allergies, chronic medications, and supplements were also reviewed and list is now up to date. HTN: Ms. Padilla indicates that she is feeling well and denies any symptoms referable to elevated blood pressure. Specifically denies headache, chest pain, palpitations, dyspnea, peripheral edema, claudication symptoms, orthopnea, fatigue, and PND. Patient denies any side effects of her medication(s) and is compliant with their regimen. She does not check BP's generally. Porfirio works out regularly 4 times per week with walking. She watches her diet for sodium, low fat and low cholesterol generally not very much. Hyperlipidemia. Ms. Padilla reports doing well on current therapy of atorvastatin (Lipitor). Denies side effects of muscle weakness or achiness. GERD: chronic stable. She is taking Protonix 40 mg daily. She does have episodic flares and will take Tums which is effective. Flares about once a week. Will occur at night. Takes tums and resolves. She tries to not eat anything after 9 pm. Chocolate is a trigger for her symptoms. Limits to 3 cups coffee a day. Drinks 1-3 cans of beer at most a day. Sometimes not every day. She does see Dr Siegel for management. She is due to see Dr Pearson next week. Urinary urgency: she is taking ditropan for this twice daily. She is tolerating this well. No longer waking at night to urinate. Previously was getting up several times a night. Advanced Directives: LW and DPOA-HC and have these documents in chart. Her daughters are her decision makers. Charissa Montnaa and Rosalee Ruiz. Preventative: she has had 5 COVID vaccines. She up to date with her flu, pneumonia, and shingles vaccines. She does not exercise. She does not smoke. Drinks 1-3 cans a beer at most a day. She had her colonoscopy with Dr Siegel 12/19/20. Reports having polyps and repeat 5 yrs. Medicare Health Risk Assessment General Health Very good Exercise: Minutes/Day 0 min Exercise: Days/Week 0 days Alcohol: Daily Use 4 or more times a week Alcohol: Drinks/Day 1 or 2 Alcohol: 6 or more drinks Less than monthly Feel off balance A couple times a week. Denies falls. Concerns: Teeth/Dentures Partial, no problems Concerns: Sexual function Denies Troubled by feelings Rarely, would like to ween off zoloft. Frequency: Eating healthy diet Daily ADLs requiring help None Safety precautions in home/vehicle Always Smoke, vape, chews tobacco Denies Difficulty hearing Denies Difficulty seeing Wears glasses Current Providers Specialists: I have reviewed specialist-related care of the patient in the medical record. Current care team: Patient Care Team: Oj Hu APRN.BREAK OFF WORKER as PCP - General Yovany Nicole MD (Gastroenterology) Ashish Johnson MD (Safety Sealer) Mauri Miguel MD (Dermatology) Anali Ibarra OD (Optometry) Medical/Family history review Reviewed and updated problem list, medical/surgical/family/social history, medications, and allergies. Opioid use review Opioid Medications (last 90 days) No data to display Anxiety/Depression screening PHQ-9 Score: 2 (Minimal Depression) Recommendation: no further intervention at this time Cognitive screening Mini Cog Score: 4 Cognitive screening reviewed and No further action needed (score 3-5). Functional Observation Was the patient's Timed Up AND Go test unsteady or >= 12 seconds? No Advance Care Planning Surrogate decision maker and/or advance care plan documented Measurements BP 116/74 Pulse 73 Temp 36.6 ?C (97.9 ?F) Resp 16 Ht 154.9 cm (5' 1) Wt 73.5 kg (162 lb) SpO2 95% BMI 30.61 kg/m? Vision Screening: Follows with optometry/ophthalmology Right: 20/25 Left: 20/ 40 Both: 20/30 Assessment/Plan Medicare annual wellness visit, subsequent (Z00.00) - Counseled on healthy diet and regular exercise - Fall avoidance information provided - Personalized prevention plan provided - Discussed need for and benefit of weight loss. BMI 30.61 kg/(m2) - Counseled patient on alcohol i (more content not included)... [facility] 04-04-2024 History of Presen t illness Narrative Images from the original note were not included. Porfirio Padilla is a 73 year old female here for a Medicare wellness visit. PMH HTN, GERD, HLD. Patient denies changes in health since last office visit. Reports feeling well. Denies concerns or complaints today. She reports she has colonoscopy and EGD with Dr Siegel in April. She reports increase gas and abd cramping at times. She was started on zoloft in August for irritability. She reports occasional irritable but feels she does not need this. She occasionally feels down. States her son has stopped talking to her. This bothers her. States he has pulled away. States this occurred after his father . He is not talking to his sisters. I reviewed patients past medical, surgical, social, and family histories today and updated chart. Allergies, chronic medications, and supplements were also reviewed and list is now up to date. HTN: Ms. Padilla indicates that she is feeling well and denies any symptoms referable to elevated blood pressure. Specifically denies headache, chest pain, palpitations, dyspnea, peripheral edema, claudication symptoms, orthopnea, fatigue, and PND. Patient denies any side effects of her medication(s) and is compliant with their regimen. She does not check BP's generally. Porfirio works out regularly 4 times per week with walking. She watches her diet for sodium, low fat and low cholesterol generally not very much. Hyperlipidemia. Ms. Padilla reports doing well on current therapy of atorvastatin (Lipitor). Denies side effects of muscle weakness or achiness. GERD: chronic stable. She is taking Protonix 40 mg daily. She does have episodic flares and will take Tums which is effective. Flares about once a week. Will occur at night. Takes tums and resolves. She tries to not eat anything after 9 pm. Chocolate is a trigger for her symptoms. Limits to 3 cups coffee a day. Drinks 1-3 cans of beer at most a day. Sometimes not every day. She does see Dr Siegel for management. She is due to see Dr Pearson next week. Urinary urgency: she is taking ditropan for this twice daily. She is tolerating this well. No longer waking at night to urinate. Previously was getting up several times a night. Advanced Directives: LW and DPOA-HC and have these documents in chart. Her daughters are her decision makers. Charissa Montana and Rosalee Ruiz. Preventative: she has had 5 COVID vaccines. She up to date with her flu, pneumonia, and shingles vaccines. She does not exercise. She does not smoke. Drinks 1-3 cans a beer at most a day. She had her colonoscopy with Dr Siegel 12/19/20. Reports having polyps and repeat 5 yrs. Medicare Health Risk Assessment General Health Very good Exercise: Minutes/Day 0 min Exercise: Days/Week 0 days Alcohol: Daily Use 4 or more times a week Alcohol: Drinks/Day 1 or 2 Alcohol: 6 or more drinks Less than monthly Feel off balance A couple times a week. Denies falls. Concerns: Teeth/Dentures Partial, no problems Concerns: Sexual function Denies Troubled by feelings Rarely, would like to ween off zoloft. Frequency: Eating healthy diet Daily ADLs requiring help None Safety precautions in home/vehicle Always Smoke, vape, chews tobacco Denies Difficulty hearing Denies Difficulty seeing Wears glasses Current Providers Specialists: I have reviewed specialist-related care of the patient in the medical record. Current care team: Patient Care Team: Oj Hu APRN.BREAK OFF WORKER as PCP - General Yovany Nicole MD (Gastroenterology) Ashish Johnson MD (Safety Sealer) Mauri Miguel MD (Dermatology) Anali Ibarra OD (Optometry) Medical/Family history review Reviewed and updated problem list, medical/surgical/family/social history, medications, and allergies. Opioid use review Opioid Medications (last 90 days) No data to display Anxiety/Depression screening PHQ-9 Score: 2 (Minimal Depression) Recommendation: no further intervention at this time Cognitive screening Mini Cog Score: 4 Cognitive screening reviewed and No further action needed (score 3-5). Functional Observation Was the patient's Timed Up & Go test unsteady or >= 12 seconds? No Advance Care Planning Surrogate decision maker and/or advance care plan documented Measurements BP 116/74 Pulse 73 Temp 36.6 C (97.9 F) Resp 16 Ht 154.9 cm (5' 1) Wt 73.5 kg (162 lb) SpO2 95% BMI 30.61 kg/m Vision Screening: Follows with optometry/ophthalmology Right: 20/25 Left: 20/ 40 Both: 20/30 Assessment/Plan Medicare annual wellness visit, subsequent (Z00.00) - Counseled on healthy diet and regular exercise - Fall avoidance information provided - Personalized prevention plan provided - Discussed need for and benefit of weight loss. BMI 30.61 kg/(m^2) - Counseled patient on alcohol intake and associated health risks Additional Concerns The following concerns were also discussed with the patient: None PHYSICAL EXAM BP 116/74 Pulse 73 Temp 36.6 C (97.9 F) Resp 16 Ht 154.9 cm (5' 1) Wt 73.5 kg (162 lb) SpO2 95% BMI 30.61 kg/m GENERAL: well appearing, alert, in no acute distress CARDIOVASCULAR: regular rate and rhythm. No murmur, rubs or gallops. PULMONARY: clear to auscultation, no wheezing, rhonchi, or crackles ABDOMEN: soft, non-tender, non-distended, no masses or organomegaly EXTREMITY: no lower extremity edema. No skin discoloration. ASSESSMENT/PLAN: 1. Medicare annual wellness visit, subsequent - ICD9: V70.0, ICD10: Z00.00 (primary diagnosis) - Counseled on healthy diet and regular exercise - Discussed need and benefit for weight loss. BMI 30.61 kg/(m^2) - Mammogram ordered - exam recommended once yearly - Counseled patient on limiting alcohol intake to 1 drink per day 2. Essential hypertension - ICD9: 401.9, ICD10: I10 - Controlled - Continue current medications - Recommend home blood pressure monitoring, to bring results to next visit - Encouraged sodium restriction, DASH or Mediterranean diet - Recommend regular aerobic exercise - Discussed need for and benefit of weight loss. BMI 30.61 kg/(m^2) - Reviewed risks of hypertension and principles of treatment 3. Gastroesophageal reflux disease, unspecified whether esophagitis present - ICD9: 530.81, ICD10: K21.9 - Discussed lifestyle modifications including losing weight, limiting caffeine, no meals three hours before sleep, and head of bed elevation - Continue treatment with protonix QD 4. Skin candidiasis - ICD9: 112.3, ICD10: B37.2 - chronic, episodic. Will refill top cream - NYSTATIN 100,000 UNIT/GRAM TOPICAL CREAM 5. Encounter for screening mammogram for malignant neoplasm of breast - ICD9: V76.12, ICD10: Z12.31 - KAYLA SCREENING W DARELL Hu APRN.BREAK OFF WORKER documented in this encounter [facility] 04-04-2024 Instructions Oj Hu APRN.BREAK OFF WORKER - 04/04/2024 11:41 AM EST Screening schedule The following prevention plan is recommended: Depression Screening Never done Anxiety Screening Never done WHAT YOU CAN DO TO PREVENT FALLS Many falls can be prevented. By making some changes, you can lower your chances of falling. Four things YOU can do to prevent falls for you* and your caregiver 1. Begin a regular exercise program Exercise is one of the most important ways to lower your chances of falling. It makes you stronger and helps you feel better. Exercises that improve balance and coordination (like Asher Chi) are the most helpful. Lack of exercise leads to weakness and increases your chances of falling. Ask your doctor or health care provider about the best type of exercise program for you. 2. Have your health care provider review your medicines Have your doctor or pharmacist review all the medicines you take, even fouo-sey-ctlykax medicines. As you get older, the way medicines work in your body can change. Some medicines, or combinations of medicines, can make you sleepy or dizzy and can cause you to fall. 3. Have your vision checked Have your eyes checked by an eye doctor at least once a year. You may be wearing the wrong glasses or have a condition like glaucoma or cataracts that limits your vision. Poor vision can increase your chances of falling. 4. Make your home safer About half of all falls happen at home. To make your home safer: Remove things you can trip over (like papers, books, clothes, and shoes) from stairs and places where you walk. Remove small throw rugs or use double-sided tape to keep the rugs from slipping. Keep items you use often in cabinets you can reach easily without using a step stool. Have grab bars put in next to your toilet and in the tub or shower. Use non-slip mats in the bathtub and on shower floors. Improve the lighting in your home. As you get older, you need brighter lights to see well. Hang light-weight curtains or shades to reduce glare. Have handrails and lights put in on all staircases. Wear shoes both inside and outside the house. Avoid going barefoot or wearing slippers. For more information, contact: Centers for Disease Control and Prevention www.cdc.gov/injury * This information may not apply if you have certain medical conditions.\ documented in this encounter [facility] 02-21-2024 Miscellaneous Notes pharmacy electronically requesting refills as follows: Last seen 10/26/23 . Last refill both 02/23/23 . Requested Prescriptions Pending Prescriptions Disp Refills losartan (COZAAR) 25 mg tablet [Pharmacy Med Name: losartan 25 mg tablet] 90 tablet 3 Sig: take 1 tablet by mouth once daily. atorvastatin (LIPITOR) 10 mg tablet [Pharmacy Med Name: atorvastatin 10 mg tablet] 90 tablet 3 Sig: Take 1 tablet by mouth once daily. BEFORE BEDTIME Please review and advise. Chapito Mayberry MA documented in this encounter [facility] 02-21-2024 Telephone encounter Note pharmacy electronically requesting refills as follows: Last seen 10/26/23 . Last refill both 02/23/23 . Requested Prescriptions Pending Prescriptions Disp Refills losartan (COZAAR) 25 mg tablet [Pharmacy Med Name: losartan 25 mg tablet] 90 tablet 3 Sig: take 1 tablet by mouth once daily. atorvastatin (LIPITOR) 10 mg tablet [Pharmacy Med Name: atorvastatin 10 mg tablet] 90 tablet 3 Sig: Take 1 tablet by mouth once daily. BEFORE BEDTIME Please review and advise. Chapito Mayberry MA [facility] 10-26-2023 History of Presen t illness Narrative This note was created using [employer]. Subjective Porfirio Padilla is a 73 year old female here today for 4 wk follow up on anxiety . She was seen 09/21/23 for routine OV. She reported increase irritability, and feel down at times. She was started on zoloft 25 mg daily. She reports she is less irritable. States she is able to control it much better. States occasional feels down but feels much better on zoloft. She feels current dose is effective to take the edge off. Denies side effects. Denies thoughts of suicide She reports she was on prozac years ago. She could not remember this at last ov. Feeling nervous, anxious, or on edge 0 Not at all sure Not being able to stop or control worrying 1 Several days Worrying too much about different things 1 Several days Trouble relaxing 0 Not at all sure Being so restless that it's hard to sit still 0 Not at all sure Being easily annoyed or irritable 1 Several days Feeling afraid as if something awful might happen 1 Several days GAVIN-7 Anxiety Score 4 If you checked off any problems, how difficult have these problems made it for you to do your work, take care of things at home, or get along with other people? Not difficult at all THE LAST 2 WEEKS, HAVE YOU BEEN BOTHERED BY ANY OF THE FOLLOWING? - Little interest or pleasure in doing things 0 NOT AT ALL Feeling down, depressed, or hopeless 1 Trouble falling or staying asleep, or sleeping too much 0 Feeling tired or having little energy 1 Poor appetite or overeating 1 Feeling bad yourself-you are a failure or have let yourself or others 1 Trouble concentrating, like reading the paper or watching TV 0 Moving/speaking slowly (others notice) OR being more fidgety/restless 0 Thoughts that you would be better off or of hurting yourself 0 PHQ TOTAL SCORE = 4 PHQ problems effect on difficulty of work, home, and social activity: 1 - NOT DIFFICULT AT ALL ALLERGIES Allergen Reactions Med-Hist Unknown Non Specific Or Non Database Allergies Include: Shrimp (Reaction: Nausea Other Reaction: Vomiting) Morphine Intolerance, Other: See Comments wires Pt up-insomnia Current Outpatient Medications Medication Sig Dispense Refill sertraline (ZOLOFT) 25 mg tablet Take 1 tablet by mouth once daily. 30 tablet 2 oxybutynin (DITROPAN) 5 mg tablet take 1 tablet by mouth twice daily. 180 tablet 3 losartan (COZAAR) 25 mg tablet Take 1 tablet by mouth once daily. 90 tablet 3 atorvastatin (LIPITOR) 10 mg tablet Take 1 tablet by mouth once daily. BEFORE BEDTIME 90 tablet 3 calcium carbonate (TUMS) 500 mg chew Take by mouth twice daily. [address] (PROTONIX) 40 mg tablet Take 40 mg by mouth once daily. BACILLUS COAGULANS (PROBIOTIC, B. COAGULANS, ORAL) Take 1 tablet by mouth once daily. Blood Pressure Test Kit-Large kit calcium carbonate-vitamin D3 600 mg(1,500mg) -800 unit tab Take by mouth. 800 Units of Vitamin D 3 and 1000mg of Calcium one daily omega-3 fatty acids (FISH OIL CONCENTRATE) 1,000 mg cap Take 2 g by mouth twice daily. nystatin (MYCOSTATIN) cream Apply to affected area twice daily. 30 g 0 Blood Pressure Monitor kit 1 Kit as directed. 1 Kit 0 No current facility-administered medications for this visit. ACTIVE PROBLEM LIST Urinary Urgency Arthritis Psoriasis Djd (Degenerative Joint Disease) Essential Hypertension Hiatal Hernia Gerd (Gastroesophageal Reflux Disease) PAST MEDICAL HISTORY Diagnosis Date Abdominal bloating Abdominal pain Arthritis Atrophic vaginitis Candidal vulvovaginitis Chest pain Degenerative joint disease of hand Diverticular disease Diverticulitis of colon DJD (degenerative joint disease) right hand Electrocardiogram abnormal Elevated blood pressure reading without diagnosis of hypertension GERD (gastroesophageal reflux disease) Hand joint pain Hiatal hernia Hypertension Incomplete emptying of bladder Increased frequency of urination Known medical problems Computed tomography result abnormal Known medical problems Urgent desire to urinate Mixed stress and urge urinary incontinence Multiple nodules of lung Nausea Pain in right hand Pain in right shoulder Pain in unspecified joint Postmenopausal state Psoriasis Urge incontinence of urine Urinary urgency PAST SURGICAL HISTORY Procedure Laterality Date BREAST BIOPSY INCISIONAL LEFT cyst BUNIONECTOMY, LAPIDUS-TYPE bilateral CARPAL TUNNEL RIGHT WRIST 1987 Wrist endoscopy/surgery COLONOSCOPY FLX DX W/COLLJ SPEC WHEN PFRMD 12/10/2015 Colonoscopy - Colonoscopy with Cold Biopsy. Digestive Disease Consults./Dr. Nicole CYSTOSCOPY 07/26/2014 ESOPHAGOGASTRODUODENOSCOPY TRANSORAL DIAGNOSTIC 07/02/[address] Nicole PAST SURGICAL HISTORY OF CO2 laser ablation of vaginal tissue VAGINAL HYSTERECTOMY UTERUS 250 GM/< 1979 prolapse Social History Tobacco Use Smoking status: Never Smokeless tobacco: Never Substance Use Topics Alcohol use: Yes Comment: rare/ Type: beer, hard liquor, and wine; Patient has not been in alcohol treatment program; Comments: Drinks 0-5 alcohol drinks per week Drug use: No Family History Problem Relation Age of Onset Cancer Mother unknown Arthritis Mother No Known Problems Father Colon Cancer Sister 50 other (Polio) Sister 14 Diabetes Sister Hyperlipidemia Sister other (Heart Disease) Sister other (atrial fib) Sister other (polio) Sister other (Polio) Brother 60 other (Diabetes mellitus) Brother Hypertension Brother Diabetes Brother other (Polio) Brother 14 . Review of Systems Constitutional: Negative for chills, fatigue and fever. Respiratory: Negative for cough, shortness of breath and wheezing. Cardiovascular: Negative for chest pain, palpitations and leg swelling. Psychiatric/Behavioral: Positive for dysphoric mood. Negative for sleep disturbance and suicidal ideas. The patient is nervous/anxious. See HPI Objective BP 128/60 (BP Site: Left Arm, BP Position: Sitting, BP Cuff Size: Regular Adult) Pulse 61 Temp 36.8 C (98.2 F) (Oral) Resp 18 Ht 152.4 cm (5') Wt 75.8 kg (167 lb) SpO2 96% BMI 32.61 kg/m Physical Exam Vitals and nursing note reviewed. Constitutional: General: She is not in acute distress. Appearance: She is obese. She is not ill-appearing. HENT: Head: Normocephalic and atraumatic. Cardiovascular: Rate and Rhythm: Normal rate and regular rhythm. Pulses: Normal pulses. Heart sounds: Normal heart sounds. No murmur heard. Pulmonary: Effort: Pulmonary effort is normal. No respiratory distress. Breath sounds: Normal breath sounds. No wheezing or rhonchi. Skin: General: Skin is warm and dry. Neurological: Mental Status: She is alert and oriented to person, place, and time. Psychiatric: Mood and Affect: Mood normal. Behavior: Behavior normal. Thought Content: Thought content normal. Judgment: Judgment normal. ASSESSMENT/PLAN: 1. Anxiety and depression - ICD9: 300.00, 311, ICD10: F41.9, F32.A - chronic, improved in both depression and anxiety. Support provided. She is tolerating zoloft well. Continue current dose - call if persists or worsens. - SERTRALINE 25 MG TABLET Oj Hu APRN.BREAK OFF WORKER documented in this encounter [facility] 09-21-2023 Instructions Oj Hu APRN.CNP - 09/21/2023 11:25 AM EDT ASSESSMENT/PLAN: 1. Essential hypertension - ICD9: 401.9, ICD10: I10 (primary diagnosis) - Controlled - Continue current medications - Recommend home blood pressure monitoring, to bring results to next visit - Encouraged sodium restriction, DASH or Mediterranean diet - Recommend regular aerobic exercise - Discussed need for and benefit of weight loss. BMI 32.61 kg/(m^2) - Reviewed risks of hypertension and principles of treatment 2. Hyperlipidemia, unspecified hyperlipidemia type - ICD9: 272.4, ICD10: E78.5 - Controlled - Continue current medications - Counseled on healthy diet and regular exercise 3. Anxiety and depression - ICD9: 300.00, 311, ICD10: F41.9, F32.A - acute on chronic, start zoloft 25 mg daily - SERTRALINE 25 MG TABLET 4. Gastroesophageal reflux disease, unspecified whether esophagitis present - ICD9: 530.81, ICD10: K21.9 - Discussed lifestyle modifications including losing weight, limiting caffeine, no meals three hours before sleep, and head of bed elevation - Continue treatment with protonix QD 5. Urinary urgency - ICD9: 788.63, ICD10: R39.15 - Chronic, stable documented in this encounter [facility] 09-21-2023 History of Presen t illness Narrative SUBJECTIVE: Porfirio Padilla is a 73 year old female who presents in follow up of HTN and Hyperlipidemia. PMH GERD, urinary incontinence, psoriasis, hiatal hernia, DJD. Patient denies changes in health since last office visit. Reports feeling well. She does report feeling down at times. She reports she is very irritable and can be mean sometimes to her . States she does not like being like that. I reviewed patients past medical, surgical, social, and family histories today and updated chart. Allergies, chronic medications, and supplements were also reviewed and list is now up to date. HTN: Ms. Padilla indicates that she is feeling well and denies any symptoms referable to elevated blood pressure. Specifically denies headache, chest pain, palpitations, dyspnea, peripheral edema, claudication symptoms, orthopnea, fatigue, and PND. Patient denies any side effects of her medication(s) and is compliant with their regimen. She does not check BP's generally. Porfirio works out regularly 4 times per week with walking. She watches her diet for sodium, low fat and low cholesterol generally not very much. Last 3 Encounter BP Readings: Date: BP: 09/21/2023 128/72 03/22/2023 128/70 09/16/2022 126/60 CMP: Glucose 102 04/14/2023 BUN 15 04/14/2023 Creatinine 0.90 04/14/2023 Sodium 142 04/14/2023 Potassium 4.1 04/14/2023 Chloride 104 04/14/2023 CO2 29 04/14/2023 Protein, Total 6.9 04/14/2023 Albumin 4.2 04/14/2023 Calcium 9.7 04/14/2023 Alkaline Phosphatase 82 04/14/2023 Bilirubin, Total 0.5 04/14/2023 AST 16 04/14/2023 ALT 14 04/14/2023 Hyperlipidemia. Ms. Padilla reports doing well on current therapy of atorvastatin (Lipitor). Denies side effects of muscle weakness or achiness. Her most recent lipid panels are: Cholesterol, Total (mg/dL) Date Value 04/14/2023 162 03/12/2022 147 12/17/2018 238 01/18/2018 204 HDL Cholesterol (mg/dL) Date Value 04/14/2023 68 03/12/2022 64 12/17/2018 69 01/18/2018 57 LDL Cholesterol (mg/dL) Date Value 04/14/2023 70 03/12/2022 64 LDL (mg/dL) Date Value 12/17/2018 152 01/18/2018 120 Triglyceride (mg/dL) Date Value 04/14/2023 119 03/12/2022 93 12/17/2018 87 01/18/2018 133 GERD: chronic stable. She is taking Protonix 40 mg daily. She does have episodic flares and will take Tums which is effective. Flares about once a week. Will occur at night. Takes tums and resolves. She tries to not eat anything after 9 pm. Chocolate is a trigger for her symptoms. Limits to 3 cups coffee a day. Drinks 1-3 cans of beer at most a day. Sometimes not every day. She does see Dr Siegel for management. She is due to see Dr Pearson next week. Urinary urgency: she is taking ditropan for this twice daily. She is tolerating this well. No longer waking at night to urinate. Previously was getting up several times a night. Advanced Directives: LW and DPOA-HC and have these documents in chart. Her daughters are her decision makers. Charissa Montana and Ezequielmaury Ruiz. Preventative: she has had 5 COVID vaccines. She up to date with her flu, pneumonia, and shingles vaccines. She does not exercise. She does not smoke. Drinks 1-3 cans a beer at most a day. She had her colonoscopy with Dr Siegel 12/19/20. Reports having polyps and repeat 5 yrs. Some elements of above documentation were copied from my progress note of 09/16/22 and have been reexamined and updated where appropriate. All elements reflect the current assessment and medical decision making today . PAST MEDICAL HISTORY Diagnosis Date Abdominal bloating Abdominal pain Arthritis Atrophic vaginitis Candidal vulvovaginitis Chest pain Degenerative joint disease of hand Diverticular disease Diverticulitis of colon DJD (degenerative joint disease) right hand Electrocardiogram abnormal Elevated blood pressure reading without diagnosis of hypertension GERD (gastroesophageal reflux disease) Hand joint pain Hiatal hernia Hypertension Incomplete emptying of bladder Increased frequency of urination Known medical problems Computed tomography result abnormal Known medical problems Urgent desire to urinate Mixed stress and urge urinary incontinence Multiple nodules of lung Nausea Pain in right hand Pain in right shoulder Pain in unspecified joint Postmenopausal state Psoriasis Urge incontinence of urine Urinary urgency PAST SURGICAL HISTORY Procedure Laterality Date BREAST BIOPSY INCISIONAL LEFT cyst BUNIONECTOMY, LAPIDUS-TYPE bilateral CARPAL TUNNEL RIGHT WRIST 1988 Wrist endoscopy/surgery COLONOSCOPY FLX DX W/COLLJ SPEC WHEN PFRMD 12/10/2015 Colonoscopy - Colonoscopy with Cold Biopsy. Digestive Disease Consults./Dr. Nicole CYSTOSCOPY 07/26/2014 ESOPHAGOGASTRODUODENOSCOPY TRANSORAL DIAGNOSTIC 07/02/[address] Nicole PAST SURGICAL HISTORY OF CO2 laser ablation of vaginal tissue VAGINAL HYSTERECTOMY UTERUS 250 GM/< 1979 prolapse Social History Tobacco Use Smoking status: Never Smokeless tobacco: Never Substance Use Topics Alcohol use: Yes Comment: rare/ Type: beer, hard liquor, and wine; Patient has not been in alcohol treatment program; Comments: Drinks 0-5 alcohol drinks per week Drug use: No ALLERGIES Allergen Reactions Med-Hist Unknown Non Specific Or Non Database Allergies Include: Shrimp (Reaction: Nausea Other Reaction: Vomiting) Morphine Intolerance, Other: See Comments wires Pt up-insomnia Current Outpatient Medications Medication Sig oxybutynin (DITROPAN) 5 mg tablet take 1 tablet by mouth twice daily. losartan (COZAAR) 25 mg tablet Take 1 tablet by mouth once daily. atorvastatin (LIPITOR) 10 mg tablet Take 1 tablet by mouth once daily. BEFORE BEDTIME calcium carbonate (TUMS) 500 mg chew Take by mouth twice daily. pantoprazole DR (PROTONIX) 40 mg tablet Take 40 mg by mouth once daily. BACILLUS COAGULANS (PROBIOTIC, B. COAGULANS, ORAL) Take 1 tablet by mouth once daily. Blood Pressure Monitor kit 1 Kit as directed. calcium carbonate-vitamin D3 600 mg(1,500mg) -800 unit tab Take by mouth. 800 Units of Vitamin D 3 and 1000mg of Calcium one daily omega-3 fatty acids (FISH OIL CONCENTRATE) 1,000 mg cap Take 2 g by mouth twice daily. nystatin (MYCOSTATIN) cream Apply to affected area twice daily. Blood Pressure Test Kit-Large kit No current facility-administered medications for this visit. Review of Systems Constitutional: Negative for chills, diaphoresis, fever, malaise/fatigue and weight loss. HENT: Negative for congestion, ear pain, sore throat and tinnitus. Eyes: Negative for blurred vision, double vision, photophobia and pain. Respiratory: Negative for cough, sputum production, shortness of breath and wheezing. Cardiovascular: Negative for chest pain, palpitations, orthopnea and leg swelling. Gastrointestinal: Positive for heartburn. Negative for abdominal pain, blood in stool, constipation, diarrhea, melena, nausea and vomiting. Frequent hearburn. Genitourinary: Negative for dysuria, frequency, hematuria and urgency. Musculoskeletal: Positive for back pain. Negative for falls, joint pain, myalgias and neck pain. Reports pain at times between shoulder blades. Reports occurs about 30-60 min after eating. Denies on exertion Skin: Negative for itching and rash. Neurological: Negative for dizziness, tingling, tremors, sensory change, speech change, focal weakness, weakness and headaches. Endo/Heme/Allergies: Negative for environmental allergies and polydipsia. Does not bruise/bleed easily. Psychiatric/Behavioral: Positive for depression. Negative for substance abuse. The patient is not nervous/anxious and does not have insomnia. Reports occasionally feeling down. Denies daily depression. Reports mostly very irritable. She reports she will get irritated with her . BP 128/72 Pulse 71 Temp (Src) 97.6 (Oral) Resp 18 Ht 5' 0 (1.52m) Wt 167 lb (75.8kg) SpO2 96% BMI 32.62 kg/(m^2). Physical Exam Vitals and nursing note reviewed. Constitutional: General: She is not in acute distress. Appearance: She is obese. She is not ill-appearing. HENT: Head: Normocephalic and atraumatic. Nose: Nose normal. Mouth/Throat: Mouth: Mucous membranes are moist. Cardiovascular: Rate and Rhythm: Normal rate and regular rhythm. Pulses: Normal pulses. Heart sounds: Normal heart sounds. No murmur heard. Pulmonary: Effort: Pulmonary effort is normal. No respiratory distress. Breath sounds: Normal breath sounds. No wheezing, rhonchi or rales. Abdominal: General: Bowel sounds are normal. Palpations: Abdomen is soft. Skin: General: Skin is warm and dry. Neurological: Mental Status: She is alert and oriented to person, place, and time. Psychiatric: Attention and Perception: Attention and perception normal. Mood and Affect: Mood normal. Affect is flat and tearful. Speech: Speech normal. Behavior: Behavior normal. Behavior is cooperative. Thought Content: Thought content normal. Cognition and Memory: Cognition and memory normal. Judgment: Judgment normal. Comments: Report occasionally feeling down. Denies thoughts of suicide. Becomes irritable at times and gets worked up. Latest Ref Rn 04/14/2023 Protein, Total 6.3 - 8.0 g/dL 6.9 Albumin 3.9 - 4.9 g/dL 4.2 Calcium 8.5 - 10.2 mg/dL 9.7 Bilirubin, Total 0.2 - 1.3 mg/dL 0.5 Alkaline Phosphatase 34 - 123 U/L 82 AST 13 - 35 U/L 16 ALT 7 - 38 U/L 14 Glucose 74 - 99 mg/dL 102 (H) BUN 7 - 21 mg/dL 15 Creatinine 0.58 - 0.96 mg/dL 0.90 Sodium 136 - 144 mmol/L 142 Potassium 3.7 - 5.1 mmol/L 4.1 Chloride 97 - 105 mmol/L 104 CO2 22 - 30 mmol/L 29 Anion Gap 9 - 18 mmol/L 9 eGFR >=60 mL/min/1.73m 67 WBC 3.70 - 11.00 k/uL 4.74 RBC 3.90 - 5.20 m/uL 4.83 Hemoglobin 11.5 - 15.5 g/dL 13.9 Hematocrit 36.0 - 46.0 % 45.0 MCV 80.0 - 100.0 fL 93.2 MCH 26.0 - 34.0 pg 28.8 MCHC 30.5 - 36.0 g/dL 30.9 RDW-CV 11.5 - 15.0 % 13.5 Platelet Count 150 - 400 k/uL 254 MPV 9.0 - 12.7 fL 9.0 Cholesterol, Total <200 mg/dL 162 Triglyceride <150 mg/dL 119 HDL Cholesterol >39 mg/dL 68 Non HDL Cholesterol <130 mg/dL 94 Fasting Time hrs 12 VLDL Cholesterol <30 mg/dL 24 TC:HDL Ratio <5.10 2.38 LDL Cholesterol <100 mg/dL 70 LDL:HDL Ratio <2.54 1.03 Hemoglobin A1C 4.3 - 5.6 % 5.3 Estimated Average Glucose mg/dL 105 TSH 0.270 - 4.200 mIU/L 2.890 Vitamin D 25 Hydroxy >=30.0 ng/mL 48.3 Legend: (H) High Feeling nervous, anxious, or on edge 0 Not at all sure Not being able to stop or control worrying 0 Not at all sure Worrying too much about different things 1 Several days Trouble relaxing 1 Several days Being so restless that it's hard to sit still 0 Not at all sure Being easily annoyed or irritable 2 Over half the days Feeling afraid as if something awful might happen 0 Not at all sure GAVIN-7 Anxiety Score 4 If you checked off any problems, how difficult have these problems made it for you to do your work, take care of things at home, or get along with other people? Somewhat difficult THE LAST 2 WEEKS, HAVE YOU BEEN BOTHERED BY ANY OF THE FOLLOWING? - Little interest or pleasure in doing things 1 SEVERAL DAYS Feeling down, depressed, or hopeless 0 Trouble falling or staying asleep, or sleeping too much 0 Feeling tired or having little energy 0 Poor appetite or overeating 1 Feeling bad yourself-you are a failure or have let yourself or others 1 Trouble concentrating, like reading the paper or watching TV 0 Moving/speaking slowly (others notice) OR being more fidgety/restless 0 Thoughts that you would be better off or of hurting yourself 0 PHQ TOTAL SCORE = 3 PHQ problems effect on difficulty of work, home, and social activity: 2 - SOMEWHAT DIFFICULT ASSESSMENT/PLAN: 1. Essential hypertension - ICD9: 401.9, ICD10: I10 (primary diagnosis) - Controlled - Continue current medications - Recommend home blood pressure monitoring, to bring results to next visit - Encouraged sodium restriction, DASH or Mediterranean diet - Recommend regular aerobic exercise - Discussed need for and benefit of weight loss. BMI 32.61 kg/(m^2) - Reviewed risks of hypertension and principles of treatment 2. Hyperlipidemia, unspecified hyperlipidemia type - ICD9: 272.4, ICD10: E78.5 - Controlled - Continue current medications - Counseled on healthy diet and regular exercise 3. Anxiety and depression - ICD9: 300.00, 311, ICD10: F41.9, F32.A - acute on chronic, start zoloft 25 mg daily. Reviewed side effects and risks. Instructed to call if symptoms persist or worsen - SERTRALINE 25 MG TABLET 4. Gastroesophageal reflux disease, unspecified whether esophagitis present - ICD9: 530.81, ICD10: K21.9 - Discussed lifestyle modifications including losing weight, limiting caffeine, no meals three hours before sleep, and head of bed elevation - Continue treatment with protonix QD 5. Urinary urgency - ICD9: 788.63, ICD10: R39.15 - Chronic, stable - continue medications as ordered All of the above discussed with the patient in detail. Patient is in agreement with the above plan. Oj Hu APRN.[place] documented in this encounter [facility] 06-11-2023 Miscellaneous Notes pharmacy electronically requesting refills as follows: Last seen 03/22/23 . Last refill 03/10/22 . Requested Prescriptions Pending Prescriptions Disp Refills oxybutynin (DITROPAN) 5 mg tablet [Pharmacy Med Name: oxybutynin chloride 5 mg tablet] 180 tablet 3 Sig: take 1 tablet by mouth twice daily. Please review and advise. Chapito Mayberry MA documented in this encounter [facility] 04-14-2023 History of Presen t illness Narrative Radiology Service Progress Note PATIENT NAME: Porfirio Padilla DATE OF SERVICE: April 14, 2023 TIME: 11:17 AM PATIENT IDENTITY VERIFICATION COMPLETED USING TWO (2) IDENTIFIERS: Name and Date of confirmed by patient verbally. FALL SCREENING: Has the patient had 2 falls in the last year or 1 fall with injury or currently using an Ambulatory Assistive Device (Walker, Cane, Wheelchair, Crutches, etc.)? No PATIENT GENDER DATA: Female. status: : No status: N/A PATIENT RELEVANT IMPLANT DATA REVIEWED: Not Applicable RADIOLOGY DEPARTMENT: Mammography PERIPHERAL IV DATA: Not applicable SIGNED BY: RT Binh(R) April 14, 2023 11:17 AM documented in this encounter [facility] 04-14-2023 History of Presen t illness Narrative Radiology Service Progress Note PATIENT NAME: Porfirio Padilla DATE OF SERVICE: April 14, 2023 TIME: 11:18 AM PATIENT IDENTITY VERIFICATION COMPLETED USING TWO (2) IDENTIFIERS: Name and Date of confirmed by patient verbally. FALL SCREENING: Has the patient had 2 falls in the last year or 1 fall with injury or currently using an Ambulatory Assistive Device (Walker, Cane, Wheelchair, Crutches, etc.)? No PATIENT GENDER DATA: Female. status: : No status: N/A PATIENT RELEVANT IMPLANT DATA REVIEWED: Not Applicable RADIOLOGY DEPARTMENT: Bone Density PERIPHERAL IV DATA: Not applicable SIGNED BY: RT Binh(R) April 14, 2023 11:18 AM documented in this encounter [facility] 03-22-2023 Instructions Oj Hu, LEGAL INSTRUCTOR.BREAK OFF WORKER - 03/22/2023 3:00 PM EDT Screening schedule The following prevention plan is recommended: Influenza Vaccine(1) due on 01/22/2023 Mammogram Screening due on 03/24/2023 WHAT YOU CAN DO TO PREVENT FALLS Many falls can be prevented. By making some changes, you can lower your chances of falling. Four things YOU can do to prevent falls for you* and your caregiver 1. Begin a regular exercise program Exercise is one of the most important ways to lower your chances of falling. It makes you stronger and helps you feel better. Exercises that improve balance and coordination (like Asher Chi) are the most helpful. Lack of exercise leads to weakness and increases your chances of falling. Ask your doctor or health care provider about the best type of exercise program for you. 2. Have your health care provider review your medicines Have your doctor or pharmacist review all the medicines you take, even [id number] medicines. As you get older, the way medicines work in your body can change. Some medicines, or combinations of medicines, can make you sleepy or dizzy and can cause you to fall. 3. Have your vision checked Have your eyes checked by an eye doctor at least once a year. You may be wearing the wrong glasses or have a condition like glaucoma or cataracts that limits your vision. Poor vision can increase your chances of falling. 4. Make your home safer About half of all falls happen at home. To make your home safer: Remove things you can trip over (like papers, books, clothes, and shoes) from stairs and places where you walk. Remove small throw rugs or use double-sided tape to keep the rugs from slipping. Keep items you use often in cabinets you can reach easily without using a step stool. Have grab bars put in next to your toilet and in the tub or shower. Use non-slip mats in the bathtub and on shower floors. Improve the lighting in your home. As you get older, you need brighter lights to see well. Hang light-weight curtains or shades to reduce glare. Have handrails and lights put in on all staircases. Wear shoes both inside and outside the house. Avoid going barefoot or wearing slippers. For more information, contact: Centers for Disease Control and Prevention www.cdc.gov/injury * This information may not apply if you have certain medical conditions. BONE MINERAL DENSITY PATIENT INSTRUCTIONS ========= Bone mineral density testing measures the amount of calcium in certain parts of your bones. This information determines how strong your bones are. The test is used to detect osteoporosis, a disease in which the bone's mineral content and density are low, increasing a person's risk of fractures. The lumbar spine (lower back) and the hip are the skeletal sites usually examined. For the test, remember that: 1. You cannot take this test if you are . 2. Eat a normal diet on the day of the test. 3. Take your medications as you normally would. 4. DO NOT take calcium supplements (such as Tums) for 24 hours before the test. 5. On the day of the test, leave valuables (jewelry or credit cards) at home. 6. The test should be performed prior to oral, rectal or IV contrast studies, or at least 7 days after any of these studies. For the test, you may be asked to wear a hospital gown. You will lie on your back, on a padded table, in a comfortable position. Generally, you can resume your usual activities immediately. documented in this encounter [facility] 03-22-2023 History of Presen t illness Narrative Porfirio L Brown is a 72 year old female here for a Medicare wellness visit. PMH HTN, GERD, HLD, urinary incontinence, psoriasis, hiatal hernia, DJD. Patient denies changes in health since last office visit. Reports feeling well. Denies concerns or complaints today. I reviewed her past medical, surgical, social, and family histories today and updated chart. Allergies, chronic medications, and supplements were also reviewed and her list is now up to date. She reports her BPs at home 139-151/78-84. Preventative: she would like her flu shot. She does not exercise. She does not smoke. Drinks 1-3 cans a beer at most a day. She had her colonoscopy with Dr Siegel 12/19/20. Reports having polyps and repeat [address] Johnson for [place]. Medicare Health Risk Assessment General Health Very good Exercise: Minutes/Day 60 min line dancing once a week she is very active. Exercise: Days/Week 1 day Alcohol: Daily Use 4 or more times a week Alcohol: Drinks/Day 1 or 2, beer occasional mix drink Alcohol: 6 or more drinks Never Feel off balance No, denies falls. States at times she feels off balance when bends over this is not new. Concerns: Teeth/Dentures No Concerns: Sexual function No Troubled by feelings Irritable, denies feeling anxious, depressed Frequency: Eating healthy diet Several days, ADLs requiring help None of the above Safety precautions in home/vehicle Yes Smoke, vape, chews tobacco No Difficulty hearing No Difficulty seeing No Current Providers Specialists: I have reviewed specialist-related care of the patient in the medical record. Current care team: Patient Care Team: Oj Hu APRN.BREAK OFF WORKER as PCP - General Yovany Nicole MD (Gastroenterology) Ashish Johnson MD (PERSONNEL SECURITY ASSISTANT) Mauri Miguel MD (Dermatology) David Rush OD (Optometry) Medical/Family history review Reviewed and updated problem list, medical/surgical/family/social history, medications, and allergies. Opioid use review Opioid Medications (last 90 days) Some values may be hidden. Unless noted otherwise, only the newest values recorded on each date are displayed. Opioid Medications No data to display. Depression screening Depression Screening PHQ-2 Score PHQ-9 Score GAVIN-2 Total Score GAVIN-7 Total Score Score (Questions 1 & 2) Total Score (All Questions) 03/22/2023 0 0 0 1 - - Depression screening tool completed and reviewed. Based on score and interview, patient is at risk for depression. Screening tool discussed with patient, and I recommended no further intervention at this time. Time spent in depression screening and assessment: < 5 minutes. Cognitive screening 08/26 no additional follow up needed. Functional Observation Was the patient's timed Up & Go test unsteady or ? 12 seconds? No Advance Care Planning Surrogate decision maker and/or advance care plan documented, surrogate decision maker- JONNY Butler and Jonny Ruiz Measurements BP 128/70 Pulse 64 Temp (Src) 98.2 (Oral) Resp 18 Ht 5' 0 (1.52m) Wt 167 lb 12.8 oz (76.1kg) SpO2 95% BMI 32.77 kg/(m^2). Vision: [facility] Hearing wnl. Additional screenings: No results found. Assessment/Plan Medicare annual wellness visit, subsequent (Z00.00) - Counseled on healthy diet and regular exercise - Fall avoidance information provided - Personalized prevention plan provided - Discussed need for and benefit of weight loss. BMI 32.77 kg/(m^2) - Counseled patient on alcohol intake and associated health risks ASSESSMENT/PLAN: 1. Medicare annual wellness visit, subsequent - ICD9: V70.0, ICD10: Z00.00 (primary diagnosis) - Counseled on healthy diet and regular exercise - Calcium intake with supplements or by diet of 1000 mg/day for under 50, 3678-3419 mg/day for 50+ - Discussed need and benefit for weight loss. BMI 32.77 kg/(m^2) - Mammogram ordered - exam recommended once yearly - Bone mineral density ordered - Counseled patient on limiting alcohol intake to 1 drink per day - Depression screening tool completed and reviewed with patient. Based on score and interview, patient is at risk for depression and recommended no further intervention at this time. - Follow up for annual exam in one year 2. Encounter for immunization - ICD9: V03.89, ICD10: Z23 - INFLUENZA VACCINE, PRSV FREE, AGE 65+ YR, HIGH DOSE, QUADRIVALENT (FLUZONE HIGH-DOSE) - given today in office 3. Post-menopausal - ICD9: V49.81, ICD10: Z78.0 - DXA-AXIAL SKELETON 4. Vitamin D deficiency - ICD9: 268.9, ICD10: E55.9 - VITAMIN D 25 HYDROXY 5. Screening for thyroid disorder - ICD9: V77.0, ICD10: Z13.29 - TSH BLD 6. Encounter for screening mammogram for malignant neoplasm of breast - ICD9: V76.12, ICD10: Z12.31 - KAYLA SCREENING Oj Hu APRN.BREAK OFF WORKER documented in this encounter [facility] 10-22-2022 Miscellaneous Notes Called pt let her know the results at this time she is not going to f/u with specialist Fartun Edwards MA CATHY was normal left and right. The TBI (toe brachial index) on right was diminished. Unsure if this is arterial/pedal disease or if spasm. Recommend she continue her statin. If she is having problems with right foot we can refer her to vascular if she is interested Stress test was normal. documented in this encounter [facility] 10-20-2022 Miscellaneous Notes Called pt left VM that we have not received the results yet Fartun Edwards MA ----- Message from Maria Eugenia Villanueva sent at 10/16/2022 10:20 AM EDT ----- Regarding: FW: Brissa / Oj Hu/calling for test results ----- Message ----- From: Varsha Booker Sent: 10/16/2022 10:19 AM EDT To: Johnny [facility] Triage Pool Subject: Medicine / Oj Hu/calling for test r# Patient has been identified by name and Date of (Y/N): y Patient: Porfirio Padilla Date of : 1950 Provider for this encounter: Oj uH APRN.CNP Reason for the call/escalation: calling for test results Was Patient Referred to [facility]/Seek Emergency Treatment (Y/N): no Did Patient Agree (Y/N): n/a Was An Attempt Made To Transfer The Patient To The Office (Y/N): no Were You Able To Reach Someone At The Office (Y/N): n/a If Yes - Patient Was Transferred To (Caregivers Name): n/a If No - Which [facility] Insurance Follow Up Rep Did You Speak With Regarding This Patient: n/a Was an appointment scheduled (Y/N): no Reason patient was requesting visit (RFV/signs and symptoms/diagnosis) : calling for test results Person calling if other than patient: n/a Return call to if other than patient: n/a Best contact number: [phone] Thank you, Varsha Booker October 16, 2022 10:18 AM documented in this encounter [facility] 10-05-2022 Miscellaneous Notes Johnny from [facility] called regarding Diagnosis for CATHY was not working asking for new diagnosis she stated R09.89 would work spoke with Dr. Garcia she stated that would be fine Fartun Edwards MA documented in this encounter [facility] 09-16-2022 Instructions Oj Hu APRN.CNP - 09/16/2022 2:44 PM EDT ASSESSMENT/PLAN: 1. Essential hypertension - ICD9: 401.9, ICD10: I10 (primary diagnosis) - good control - Begin losartan 25 mg daily - Discontinue lisinopril (Zestril/Prinivil) - Recommended regular aerobic exercise. - Recommend home blood pressure monitoring, to bring results in on next visit - Goal of BP <130/80 - LOSARTAN 25 MG TABLET 2. Chest pain, unspecified type - ICD9: 786.50, ICD10: R07.9 Chest pain of unclear etiology, patient with significant risk factor(s) of Hypertension and Hyperlipidemia Exercise stress test - EXERCISE STRESS ECG (WITHOUT IMAGING) 3. Hyperlipidemia, unspecified hyperlipidemia type - ICD9: 272.4, ICD10: E78.5 - good control - Continue current medication. - Encouraged following a low fat, low cholesterol diet. - Discussed the benefits of regular aerobic exercise and weight loss. 4. Gastroesophageal reflux disease, unspecified whether esophagitis present - ICD9: 530.81, ICD10: K21.9 - Discussed lifestyle modifications including losing weight, limiting caffeine, no meals three hours before sleep, and head of bed elevation - Continue treatment with Protonix 40 mg daily. 5. Encounter for screening for cardiovascular disorders - ICD9: V81.2, ICD10: Z13.6 - US ANKLE BRACHIAL INDICES documented in this encounter [facility] 09-16-2022 History of Presen t illness Narrative SUBJECTIVE: Porfirio Padilla is a 72 year old female who presents in follow up of HTN and Hyperlipidemia. PMH GERD, urinary incontinence, psoriasis, hiatal hernia, DJD. Patient denies changes in health since last office visit. Reports feeling well. Denies concerns or complaints today. She reports she had an insurance evaluation at home and had a test at home for PAD. She reports her exam was abnormal. She does report having right calf cramps 1-2x/wk. Denies no pain when walking. She reports left 2nd, 3rd and 4th toes are numb/burning sensation when she is up walking. I reviewed her past medical, surgical, social, and family histories today and updated chart. Allergies, chronic medications, and supplements were also reviewed and her list is now up to date. HTN: Ms. Padilla indicates that she is feeling well and denies any symptoms referable to elevated blood pressure. Specifically denies headache, chest pain, palpitations, dyspnea, peripheral edema, claudication symptoms, orthopnea, fatigue, and PND. Patient admits to having side effects of cough. She does check BP's away from this office with average BP's in the 115-139/67-79 range. Porfirio denies regular aerobic exercise. She watches her diet for sodium, low fat and low cholesterol most of the time. She is taking lisinpril 10 mg daily. Last 3 Encounter BP Readings: Date: BP: 03/10/2022 122/60 09/09/2021 132/78 07/23/2021 128/76 CMP: Glucose 109 03/12/2022 BUN 15 03/12/2022 Creatinine 0.90 03/12/2022 Sodium 141 03/12/2022 Potassium 4.3 03/12/2022 Chloride 103 03/12/2022 CO2 31 03/12/2022 Protein, Total 6.9 03/12/2022 Albumin 4.3 03/12/2022 Calcium 9.6 03/12/2022 Alkaline Phosphatase 92 03/12/2022 Bilirubin, Total 0.4 03/12/2022 AST 14 03/12/2022 ALT 16 03/12/2022 Hyperlipidemia. Ms. Padilla reports doing well on current therapy of atorvastatin (Lipitor) 10 mg. Denies side effects of muscle weakness or achiness. Her most recent lipid panels are: Cholesterol, Total (mg/dL) Date Value 03/12/2022 147 03/12/2021 233 12/17/2018 238 01/18/2018 204 HDL Cholesterol (mg/dL) Date Value 03/12/2022 64 03/12/2021 65 12/17/2018 69 01/18/2018 57 LDL Cholesterol (mg/dL) Date Value 03/12/2022 64 03/12/2021 143 LDL (mg/dL) Date Value 12/17/2018 152 01/18/2018 120 Triglyceride (mg/dL) Date Value 03/12/2022 93 03/12/2021 125 12/17/2018 87 01/18/2018 133 GERD: chronic stable. She is taking Protonix 40 mg daily. She does have episodic flares and will take Tums which is effective. Flares about once a week. Will occur at night. Takes tums and resolves. She tries to not eat anything after 9 pm. Chocolate is a trigger for her symptoms. Limits to 3 cups coffee a day. Drinks 1-3 cans of beer at most a day. Sometimes not every day. She does see Dr Siegel for management. She is due to see Dr Pearson next week. Urinary urgency: she is taking ditropan for this twice daily. She is tolerating this well. No longer waking at night to urinate. Previously was getting up several times a night. Advanced Directives: LW and DPOA-HC and have these documents in chart. Her daughters are her decision makers. Charissa Montana and Rosalee Ruiz. Preventative: she has had 5 COVID vaccines. She up to date with her flu, pneumonia, and shingles vaccines. She does not exercise. She does not smoke. Drinks 1-3 cans a beer at most a day. She had her colonoscopy with Dr Siegel 12/19/20. Reports having polyps and repeat 5 yrs. Some elements of above documentation were copied from my progress note of 03/10/22 and have been reexamined and updated where appropriate. All elements reflect the current assessment and medical decision making today . PAST MEDICAL HISTORY Diagnosis Date Abdominal bloating Abdominal pain Arthritis Atrophic vaginitis Candidal vulvovaginitis Chest pain Degenerative joint disease of hand Diverticular disease Diverticulitis of colon DJD (degenerative joint disease) right hand Electrocardiogram abnormal Elevated blood pressure reading without diagnosis of hypertension GERD (gastroesophageal reflux disease) Hand joint pain Hiatal hernia Hypertension Incomplete emptying of bladder Increased frequency of urination Known medical problems Computed tomography result abnormal Known medical problems Urgent desire to urinate Mixed stress and urge urinary incontinence Multiple nodules of lung Nausea Pain in right hand Pain in right shoulder Pain in unspecified joint Postmenopausal state Psoriasis Urge incontinence of urine Urinary urgency PAST SURGICAL HISTORY Procedure Laterality Date BREAST BIOPSY INCISIONAL LEFT cyst BUNIONECTOMY, LAPIDUS-TYPE bilateral CARPAL TUNNEL RIGHT WRIST 1988 Wrist endoscopy/surgery COLONOSCOPY FLX DX W/COLLJ SPEC WHEN PFRMD 12/10/2015 Colonoscopy - Colonoscopy with Cold Biopsy. Digestive Disease Consults./Dr. Nicole CYSTOSCOPY 07/26/2014 ESOPHAGOGASTRODUODENOSCOPY TRANSORAL DIAGNOSTIC 07/02/[address] Nicole PAST SURGICAL HISTORY OF CO2 laser ablation of vaginal tissue VAGINAL HYSTERECTOMY UTERUS 250 GM/< 1979 prolapse Social History Tobacco Use Smoking status: Never Smokeless tobacco: Never Substance Use Topics Alcohol use: Yes Comment: rare/ Type: beer, hard liquor, and wine; Patient has not been in alcohol treatment program; Comments: Drinks 0-5 alcohol drinks per week Drug use: No ALLERGIES Allergen Reactions Med-Hist Unknown Non Specific Or Non Database Allergies Include: Shrimp (Reaction: Nausea Other Reaction: Vomiting) Morphine Intolerance, Other: See Comments wires Pt up-insomnia Current Outpatient Medications Medication Sig lisinopril (ZESTRIL, PRINIVIL) 10 mg tablet Take 1 tablet by mouth once daily. oxybutynin (DITROPAN) 5 mg tablet Take 1 tablet by mouth twice daily. atorvastatin (LIPITOR) 10 mg tablet Take 1 tablet by mouth once daily. BEFORE BEDTIME nystatin (MYCOSTATIN) cream Apply to affected area twice daily. naproxen (NAPROSYN) 500 mg tablet Take 1 tablet by mouth twice daily as needed (FOR PAIN - TAKE WITH FOOD.). calcium carbonate (TUMS) 500 mg chew Take by mouth twice daily. pantoprazole DR (PROTONIX) 40 mg tablet Take 40 mg by mouth once daily. BACILLUS COAGULANS (PROBIOTIC, B. COAGULANS, ORAL) Take 1 tablet by mouth once daily. Blood Pressure Test Kit-Large kit Blood Pressure Monitor kit 1 Kit as directed. calcium carbonate-vitamin D3 600 mg(1,500mg) -800 unit tab Take by mouth. 800 Units of Vitamin D 3 and 1000mg of Calcium one daily omega-3 fatty acids (FISH OIL CONCENTRATE) 1,000 mg cap Take 2 g by mouth twice daily. No current facility-administered medications for this visit. Review of Systems Constitutional: Negative for chills, diaphoresis, fever, malaise/fatigue and weight loss. HENT: Negative. Negative for congestion, ear pain, sore throat and tinnitus. Eyes: Negative for blurred vision, double vision, photophobia and pain. Respiratory: Positive for cough. Negative for sputum production, shortness of breath and wheezing. Occasional cough, dry non productive. For several years. She reports it is not bothersome. Cardiovascular: Positive for chest pain. Negative for palpitations, orthopnea and leg swelling. Reports occasional Cp, has been occurring for > 1 yr. Reports happens at rest or during activity. Denies SOB associated with this. Gastrointestinal: Negative for abdominal pain, blood in stool, constipation, diarrhea, heartburn, melena, nausea and vomiting. Genitourinary: Negative for dysuria, frequency, hematuria and urgency. Musculoskeletal: Negative for back pain, falls, joint pain, myalgias and neck pain. Skin: Negative for itching and rash. Neurological: Positive for tingling. Negative for dizziness, tremors, sensory change, speech change, focal weakness, weakness and headaches. Toes see HPI Endo/Heme/Allergies: Negative for environmental allergies and polydipsia. Does not bruise/bleed easily. Psychiatric/Behavioral: Negative for depression and substance abuse. The patient is not nervous/anxious and does not have insomnia. 09/16/22 1343 09/16/22 1407 BP: 138/60 126/60 BP Site: Right Arm BP Position: Sitting BP Cuff Size: Regular Adult Pulse: 72 Resp: 18 Temp: 36.8 C (98.2 F) TempSrc: Oral SpO2: 95% Weight: 76.2 kg (168 lb) Height: 154.9 cm (5' 1) Physical Exam Vitals and nursing note reviewed. Constitutional: General: She is not in acute distress. Appearance: Normal appearance. She is not diaphoretic. HENT: Head: Normocephalic and atraumatic. Right Ear: External ear normal. Left Ear: External ear normal. Nose: Nose normal. Mouth/Throat: Pharynx: No oropharyngeal exudate. Eyes: General: Lids are normal. No scleral icterus. Right eye: No discharge. Left eye: No discharge. Conjunctiva/sclera: Conjunctivae normal. Pupils: Pupils are equal, round, and reactive to light. Neck: Vascular: Normal carotid pulses. No carotid bruit. Cardiovascular: Rate and Rhythm: Normal rate and regular rhythm. Pulses: Radial pulses are 2+ on the right side and 2+ on the left side. Dorsalis pedis pulses are 1+ on the right side and 2+ on the left side. Posterior tibial pulses are 2+ on the right side and 2+ on the left side. Heart sounds: Normal heart sounds, S1 normal and S2 normal. No murmur heard. No friction rub. No gallop. Pulmonary: Effort: Pulmonary effort is normal. No accessory muscle usage or respiratory distress. Breath sounds: Normal breath sounds. No decreased breath sounds, wheezing, rhonchi or rales. Chest: Chest wall: No tenderness. Abdominal: General: Bowel sounds are normal. There is no distension. Palpations: Abdomen is soft. Tenderness: There is no abdominal tenderness. Musculoskeletal: General: No tenderness. Normal range of motion. Cervical back: Normal range of motion and neck supple. Right lower leg: No edema. Left lower leg: No edema. Skin: General: Skin is warm and dry. Coloration: Skin is not pale. Findings: No erythema or rash. Nails: There is no clubbing. Neurological: Mental Status: She is alert and oriented to person, place, and time. Sensory: Sensation is intact. Motor: Motor function is intact. No abnormal muscle tone. Coordination: Coordination normal. Gait: Gait is intact. Deep Tendon Reflexes: Reflexes are normal and symmetric. Psychiatric: Mood and Affect: Mood and affect normal. Behavior: Behavior normal. Thought Content: Thought content normal. Cognition and Memory: Memory normal. Judgment: Judgment normal. Component Latest Ref Rng & Units 03/12/2022 Protein, Total 6.3 - 8.0 g/dL 6.9 Albumin 3.9 - 4.9 g/dL 4.3 Calcium 8.5 - 10.2 mg/dL 9.6 Bilirubin, Total 0.2 - 1.3 mg/dL 0.4 Alkaline Phosphatase 34 - 123 U/L 92 AST 13 - 35 U/L 14 ALT 7 - 38 U/L 16 Glucose 74 - 99 mg/dL 109 (H) BUN 7 - 21 mg/dL 15 Creatinine 0.58 - 0.96 mg/dL 0.90 Sodium 136 - 144 mmol/L 141 Potassium 3.7 - 5.1 mmol/L 4.3 Chloride 97 - 105 mmol/L 103 CO2 22 - 30 mmol/L 31 (H) Anion Gap 9 - 18 mmol/L 7 (L) eGFR >=60 mL/min/1.73m 68 WBC 3.70 - 11.00 k/uL 4.86 RBC 3.90 - 5.20 m/uL 4.89 Hemoglobin 11.5 - 15.5 g/dL 14.2 Hematocrit 36.0 - 46.0 % 44.8 MCV 80.0 - 100.0 fL 91.6 MCH 26.0 - 34.0 pg 29.0 MCHC 30.5 - 36.0 g/dL 31.7 RDW-CV 11.5 - 15.0 % 14.0 Platelet Count 150 - 400 k/uL 260 MPV 9.0 - 12.7 fL 9.0 Cholesterol, Total <200 mg/dL 147 Triglyceride <150 mg/dL 93 HDL Cholesterol >39 mg/dL 64 Non HDL Cholesterol <130 mg/dL 83 Fasting Time hrs 12 VLDL Cholesterol <30 mg/dL 19 TC:HDL Ratio <5.10 2.30 LDL Cholesterol <100 mg/dL 64 LDL:HDL Ratio <2.54 1.00 Hemoglobin A1C 4.3 - 5.6 % 5.6 Estimated Average Glucose mg/dL 114 TSH 0.270 - 4.200 mIU/L 2.820 Vitamin D 25 Hydroxy >=30.0 ng/mL 45.6 ASSESSMENT/PLAN: 1. Essential hypertension - ICD9: 401.9, ICD10: I10 (primary diagnosis) - good control - Begin losartan 25 mg daily - Discontinue lisinopril (Zestril/Prinivil) - Recommended regular aerobic exercise. - Recommend home blood pressure monitoring, to bring results in on next visit - Goal of BP <130/80 - LOSARTAN 25 MG TABLET 2. Chest pain, unspecified type - ICD9: 786.50, ICD10: R07.9 Chest pain of unclear etiology, patient with significant risk factor(s) of Hypertension and Hyperlipidemia Exercise stress test - EXERCISE STRESS ECG (WITHOUT IMAGING) 3. Hyperlipidemia, unspecified hyperlipidemia type - ICD9: 272.4, ICD10: E78.5 - good control - Continue current medication. - Encouraged following a low fat, low cholesterol diet. - Discussed the benefits of regular aerobic exercise and weight loss. 4. Gastroesophageal reflux disease, unspecified whether esophagitis present - ICD9: 530.81, ICD10: K21.9 - Discussed lifestyle modifications including losing weight, limiting caffeine, no meals three hours before sleep, and head of bed elevation - Continue treatment with Protonix 40 mg daily. 5. Encounter for screening for cardiovascular disorders - ICD9: V81.2, ICD10: Z13.6 - pt had at home testing from insurance [employer] and reported abnormal results and increase risk of PAD. There is slight decrease in right pedal pulse when compared to left. Will check CATHY - US ANKLE BRACHIAL INDICES All of the above discussed with the patient in detail. Patient is in agreement with the above plan. Oj Hu APRN.[place] documented in this encounter [facility] 03-25-2022 Miscellaneous Notes [facility] [address] [place] [address] March 25, 2022 PID: [id number] Porfirio Padilla [address] [place] [address] Dear Valerie, We are pleased to inform you that the results of your recent breast imaging exam on 03/24/2022 are normal. Early detection of cancer is very important. We also understand recommendations regarding breast cancer screening are controversial. Please discuss with your primary care provider which strategy is best for you and whether a mammogram is right for you. Your imaging studies and report will be kept on file at [facility] as part of your permanent medical record and are available for your continuing care. Thank you for allowing us to help in meeting your health care needs. Sincerely, Dr. Phelps Interpreting Radiologist [facility] (Normal over 40) documented in this encounter [facility] 03-24-2022 History of Presen t illness Narrative Radiology Service Progress Note PATIENT NAME: Porfirio Padilla DATE OF SERVICE: March 24, 2022 TIME: 11:06 AM PATIENT IDENTITY VERIFICATION COMPLETED USING TWO (2) IDENTIFIERS: Name and Date of confirmed by patient verbally. FALL SCREENING: Has the patient had 2 falls in the last year or 1 fall with injury or currently using an Ambulatory Assistive Device (Walker, Cane, Wheelchair, Crutches, etc.)? No PATIENT GENDER DATA: Female. status: : No status: N/A PATIENT RELEVANT IMPLANT DATA REVIEWED: Not Applicable RADIOLOGY DEPARTMENT: Mammography PERIPHERAL IV DATA: Not applicable SIGNED BY: RT Binh(Yanique) March 24, 2022 11:06 AM documented in this encounter [facility] 03-17-2022 Miscellaneous Notes Called pt left VM with results Fartun Edwards MA ----- Message from Oj Hu APRN.BREAK OFF WORKER sent at 03/17/2022 6:48 AM EDT ----- ECG unremarkable. Shows slow HR. When compared to previous ECG PVC's no longer present documented in this encounter [facility] 03-13-2022 Miscellaneous Notes Left message informing patient, phone number to reach the office was left for any questions or concerns. Eulalia Romo MA ----- Message from Oj Hu APRN.BREAK OFF WORKER sent at 03/13/2022 1:30 PM EDT ----- Vit d wnl Hgb aic normal documented in this encounter [facility] 03-12-2022 Miscellaneous Notes Called pt left VM with results to call office back with any concerns or questions Fartun Edwrads MA ----- Message from Oj Hu APRN.BREAK OFF WORKER sent at 03/12/2022 12:48 PM EDT ----- Tsh wnl CMP stable Lipids wnl CBC wnl documented in this encounter [facility] 03-10-2022 Instructions Oj Hu APRN.CNP - 03/10/2022 1:40 PM EDT ASSESSMENT/PLAN: 1. Wellness examination - ICD9: V70.0, ICD10: Z00.00 (primary diagnosis) - Counseled on healthy diet and regular exercise - Calcium intake with supplements or by diet of 1000 mg/day for under 50, 1879-2525 mg/day for 50+ - Mammogram ordered - exam recommended once yearly - Follow up for annual exam in one year 2. Essential hypertension - ICD9: 401.9, ICD10: I10 - good control - Continue current medication(s) - Recommended regular aerobic exercise. - Recommend home blood pressure monitoring, to bring results in on next visit - Discussed need and benefit for weight loss. - Reviewed risks of HTN and principles of treatment - Goal of BP <130/80 - Recommended no refined sugar, low refined starch, healthy oil intake (olive oil), healthy protein (fish) along the lines of the Mediterranean diet. - CBC - COMP METABOLIC PANEL - LISINOPRIL 10 MG TABLET 3. Gastroesophageal reflux disease, unspecified whether esophagitis present - ICD9: 530.81, ICD10: K21.9 - Discussed lifestyle modifications including losing weight, limiting caffeine, no meals three hours before sleep, and head of bed elevation - Continue treatment with protonix QD 4. Hyperlipidemia, unspecified hyperlipidemia type - ICD9: 272.4, ICD10: E78.5 - to be determined upon return of lab results - Continue current medication. - Encouraged following a low fat, low cholesterol diet. - Discussed the benefits of regular aerobic exercise and weight loss. - Check fasting lipid panel - Encouraged following a low carbohydrate, healthy oil intake diet. - LIPID PANEL BASIC - ATORVASTATIN 10 MG TABLET 5. Skin candidiasis - ICD9: 112.3, ICD10: B37.2 - reports vaginal groin folds itching will treat for fungal - call if persists or worsens - NYSTATIN 100,000 UNIT/GRAM TOPICAL CREAM 6. Urinary urgency - ICD9: 788.63, ICD10: R39.15 - Chronic stable - OXYBUTYNIN CHLORIDE 5 MG TABLET 7. Vitamin D deficiency - ICD9: 268.9, ICD10: E55.9 - VITAMIN D 25 HYDROXY 8. Elevated blood sugar - ICD9: 790.29, ICD10: R73.9 - HGB A1C 9. Screening for thyroid disorder - ICD9: V77.0, ICD10: Z13.29 - TSH BLD 10. Encounter for immunization - ICD9: V03.89, ICD10: Z23 - INFLUENZA SEASONAL QUADRIVALENT HIGH DOSE AGE 65+ - PNEUMOCOCCAL VACCINE (PREVNAR 20) - given today in office 11. Encounter for screening mammogram for malignant neoplasm of breast - ICD9: V76.12, ICD10: Z12.31 - KAYLA SCREENING Oj Hu APRN.BREAK OFF WORKER documented in this encounter [facility] 03-10-2022 History of Presen t illness Narrative SUBJECTIVE: Porfirio Padilla is a 71 year old female who presents or WAE. PMH HTN, GERD, urinary incontinence, and Hyperlipidemia. Patient denies changes in health since last office visit. Reports feeling well. Denies concerns or complaints today. I reviewed her past medical, surgical, social, and family histories today and updated chart. Allergies, chronic medications, and supplements were also reviewed and her list is now up to date. HTN: Ms. Padilla indicates that she is feeling well and denies any symptoms referable to elevated blood pressure. Specifically denies headache, chest pain, palpitations, dyspnea, peripheral edema, claudication symptoms, orthopnea, fatigue, and PND. Patient denies any side effects of her medication(s) and is compliant with their regimen. She does check BP's away from this office with average BP's in the [id number] range. Porfirio works out regularly 1 times per week with Line dancing. She watches her diet for sodium, low fat and low cholesterol most of the time. She is taking lisinopril 10 mg daily. Last 3 Encounter BP Readings: Date: BP: 09/09/2021 132/78 07/23/2021 128/76 03/11/2021 122/60 CMP: Glucose 105 03/12/2021 BUN 16 03/12/2021 Creatinine 0.94 03/12/2021 Sodium 140 03/12/2021 Potassium 4.3 03/12/2021 Chloride 103 03/12/2021 CO2 28 03/12/2021 Protein, Total 7.0 03/12/2021 Albumin 4.3 03/12/2021 Calcium 9.7 03/12/2021 Alkaline Phosphatase 77 03/12/2021 Bilirubin, Total 0.3 03/12/2021 AST 14 03/12/2021 ALT 18 03/12/2021 Hyperlipidemia. Ms. Padilla reports doing well on current therapy of atorvastatin (Lipitor) 10 mg. Denies side effects of muscle weakness or achiness. Her most recent lipid panels are: Cholesterol, Total (mg/dL) Date Value 03/12/2021 233 03/13/2020 225 12/17/2018 238 01/18/2018 204 HDL Cholesterol (mg/dL) Date Value 03/12/2021 65 03/13/2020 67 12/17/2018 69 01/18/2018 57 LDL Cholesterol (mg/dL) Date Value 03/12/2021 143 03/13/2020 140 LDL (mg/dL) Date Value 12/17/2018 152 01/18/2018 120 Triglyceride (mg/dL) Date Value 03/12/2021 125 03/13/2020 92 12/17/2018 87 01/18/2018 133 GERD: chronic stable. She is taking Protonix 40 mg daily. She does have episodic flares and will take Tums which is effective. Flares about once a week. Will occur at night. Takes tums and resolves. She tries to not eat anything after 9 pm. Chocolate is a trigger for her symptoms. Limits to 3 cups coffee a day. Drinks 1-3 cans of beer at most a day. Sometimes not every day. She does see Dr Siegel for management. She is due to see Dr Pearson next week. Urinary urgency: she is taking ditropan for this twice daily. She is tolerating this well. Reports she has not even been getting up at night to urinate which improved. Previously was getting up several times a night. Advanced Directives: LW and DPOA-HC and have these documents in chart. Her daughters are her decision makers. Charissa Onealon and Ezequielmaury Ruiz. Preventative: she has had 4 COVID vaccines. She would like her flu and prevnar 20 today. She received both shingles vaccines. She does not exercise. She does not smoke. Drinks 1-3 cans a beer at most a day. She had her colonoscopy with Dr Siegel 12/19/20. Reports having polyps and repeat 5 yrs. Some elements of above documentation were copied from my progress note of 09/09/21 and have been reexamined and updated where appropriate. All elements reflect the current assessment and medical decision making today . PAST MEDICAL HISTORY Diagnosis Date Abdominal bloating Abdominal pain Arthritis Atrophic vaginitis Candidal vulvovaginitis Chest pain Degenerative joint disease of hand Diverticular disease Diverticulitis of colon DJD (degenerative joint disease) right hand Electrocardiogram abnormal Elevated blood pressure reading without diagnosis of hypertension GERD (gastroesophageal reflux disease) Hand joint pain Hiatal hernia Hypertension Incomplete emptying of bladder Increased frequency of urination Known medical problems Computed tomography result abnormal Known medical problems Urgent desire to urinate Mixed stress and urge urinary incontinence Multiple nodules of lung Nausea Pain in right hand Pain in right shoulder Pain in unspecified joint Postmenopausal state Psoriasis Urge incontinence of urine Urinary urgency PAST SURGICAL HISTORY Procedure Laterality Date BREAST BIOPSY INCISIONAL LEFT cyst BUNIONECTOMY, LAPIDUS-TYPE bilateral CARPAL TUNNEL RIGHT WRIST 1987 Wrist endoscopy/surgery COLONOSCOPY FLX DX W/COLLJ SPEC WHEN PFRMD 12/10/2015 Colonoscopy - Colonoscopy with Cold Biopsy. Digestive Disease Consults./Dr. Nicole CYSTOSCOPY 07/26/2014 ESOPHAGOGASTRODUODENOSCOPY TRANSORAL DIAGNOSTIC 07/02/[address] Nicole PAST SURGICAL HISTORY OF CO2 laser ablation of vaginal tissue VAGINAL HYSTERECTOMY UTERUS 250 GM/< 1979 prolapse Social History Tobacco Use Smoking status: Never Smokeless tobacco: Never Substance Use Topics Alcohol use: Yes Comment: rare/ Type: beer, hard liquor, and wine; Patient has not been in alcohol treatment program; Comments: Drinks 0-5 alcohol drinks per week Drug use: No ALLERGIES Allergen Reactions Med-Hist Unknown Non Specific Or Non Database Allergies Include: Shrimp (Reaction: Nausea Other Reaction: Vomiting) Morphine Intolerance, Other: See Comments wires Pt up-insomnia Current Outpatient Medications Medication Sig atorvastatin (LIPITOR) 10 mg tablet Take 1 tablet by mouth once daily. BEFORE BEDTIME oxybutynin (DITROPAN) 5 mg tablet Take 1 tablet by mouth twice daily. lisinopril (ZESTRIL, PRINIVIL) 10 mg tablet Take 1 tablet by mouth once daily. naproxen (NAPROSYN) 500 mg tablet Take 1 tablet by mouth twice daily as needed (FOR PAIN - TAKE WITH FOOD.). calcium carbonate (TUMS) 500 mg chew Take by mouth twice daily. pantoprazole DR (PROTONIX) 40 mg tablet Take 40 mg by mouth once daily. BACILLUS COAGULANS (PROBIOTIC, B. COAGULANS, ORAL) Take 1 tablet by mouth once daily. Blood Pressure Test Kit-Large kit Blood Pressure Monitor kit 1 Kit as directed. calcium carbonate-vitamin D3 600 mg(1,500mg) -800 unit tab Take by mouth. 800 Units of Vitamin D 3 and 1000mg of Calcium one daily omega-3 fatty acids (FISH OIL CONCENTRATE) 1,000 mg cap Take 2 g by mouth twice daily. No current facility-administered medications for this visit. Review of Systems Constitutional: Negative for chills, diaphoresis, fever, malaise/fatigue and weight loss. HENT: Negative. Negative for congestion, ear pain, sore throat and tinnitus. Eyes: Negative for blurred vision, double vision, photophobia and pain. Respiratory: Negative for cough, sputum production, shortness of breath and wheezing. Cardiovascular: Negative for chest pain, palpitations, orthopnea and leg swelling. Gastrointestinal: Negative for abdominal pain, blood in stool, constipation, diarrhea, heartburn, melena, nausea and vomiting. Genitourinary: Negative for dysuria, frequency, hematuria and urgency. Occasional vaginal itching. Reports some redness groin thinks possible yeast Musculoskeletal: Positive for joint pain. Negative for back pain, falls, myalgias and neck pain. Left shoulder pain Skin: Negative for itching and rash. Neurological: Negative for dizziness, tingling, tremors, sensory change, speech change, focal weakness, weakness and headaches. Endo/Heme/Allergies: Negative for environmental allergies and polydipsia. Does not bruise/bleed easily. Psychiatric/Behavioral: Negative for depression and substance abuse. The patient is not nervous/anxious and does not have insomnia. 03/10/22 1255 BP: 122/60 BP Site: Right Arm BP Position: Sitting BP Cuff Size: Regular Adult Pulse: 65 Resp: 18 Temp: 36.8 C (98.2 F) TempSrc: Oral SpO2: 97% Weight: 75.8 kg (167 lb 3.2 oz) Height: 154.9 cm (5' 1) Physical Exam Vitals and nursing note reviewed. Constitutional: General: She is not in acute distress. Appearance: Normal appearance. She is not diaphoretic. HENT: Head: Normocephalic and atraumatic. Right Ear: External ear normal. Left Ear: External ear normal. Nose: Nose normal. Mouth/Throat: Pharynx: No oropharyngeal exudate. Eyes: General: Lids are normal. No scleral icterus. Right eye: No discharge. Left eye: No discharge. Conjunctiva/sclera: Conjunctivae normal. Pupils: Pupils are equal, round, and reactive to light. Neck: Vascular: Normal carotid pulses. No carotid bruit. Cardiovascular: Rate and Rhythm: Normal rate and regular rhythm. Pulses: Normal pulses. Heart sounds: Normal heart sounds, S1 normal and S2 normal. No murmur heard. No friction rub. No gallop. Pulmonary: Effort: Pulmonary effort is normal. No accessory muscle usage or respiratory distress. Breath sounds: Normal breath sounds. No decreased breath sounds, wheezing, rhonchi or rales. Chest: Chest wall: No tenderness. Abdominal: General: Bowel sounds are normal. There is no distension. Palpations: Abdomen is soft. Tenderness: There is no abdominal tenderness. Musculoskeletal: General: No tenderness. Normal range of motion. Right shoulder: Normal. Left shoulder: Normal. Cervical back: Normal range of motion and neck supple. Skin: General: Skin is warm and dry. Coloration: Skin is not pale. Findings: No erythema or rash. Nails: There is no clubbing. Neurological: Mental Status: She is alert and oriented to person, place, and time. Sensory: Sensation is intact. Motor: Motor function is intact. No abnormal muscle tone. Coordination: Coordination normal. Gait: Gait is intact. Deep Tendon Reflexes: Reflexes are normal and symmetric. Psychiatric: Mood and Affect: Mood and affect normal. Behavior: Behavior normal. Thought Content: Thought content normal. Cognition and Memory: Memory normal. Judgment: Judgment normal. ASSESSMENT/PLAN: 1. Wellness examination - ICD9: V70.0, ICD10: Z00.00 (primary diagnosis) - Counseled on healthy diet and regular exercise - Calcium intake with supplements or by diet of 1000 mg/day for under 50, 6194-0248 mg/day for 50+ - Mammogram ordered - exam recommended once yearly - Follow up for annual exam in one year 2. Essential hypertension - ICD9: 401.9, ICD10: I10 - good control - Continue current medication(s) - Recommended regular aerobic exercise. - Recommend home blood pressure monitoring, to bring results in on next visit - Discussed need and benefit for weight loss. - Reviewed risks of HTN and principles of treatment - Goal of BP <130/80 - Recommended no refined sugar, low refined starch, healthy oil intake (olive oil), healthy protein (fish) along the lines of the Mediterranean diet. - CBC - COMP METABOLIC PANEL - LISINOPRIL 10 MG TABLET 3. Gastroesophageal reflux disease, unspecified whether esophagitis present - ICD9: 530.81, ICD10: K21.9 - Discussed lifestyle modifications including losing weight, limiting caffeine, no meals three hours before sleep, and head of bed elevation - Continue treatment with protonix QD 4. Hyperlipidemia, unspecified hyperlipidemia type - ICD9: 272.4, ICD10: E78.5 - to be determined upon return of lab results - Continue current medication. - Encouraged following a low fat, low cholesterol diet. - Discussed the benefits of regular aerobic exercise and weight loss. - Check fasting lipid panel - Encouraged following a low carbohydrate, healthy oil intake diet. - LIPID PANEL BASIC - ATORVASTATIN 10 MG TABLET 5. Skin candidiasis - ICD9: 112.3, ICD10: B37.2 - reports vaginal groin folds itching will treat for fungal - call if persists or worsens - NYSTATIN 100,000 UNIT/GRAM TOPICAL CREAM 6. Urinary urgency - ICD9: 788.63, ICD10: R39.15 - Chronic stable - OXYBUTYNIN CHLORIDE 5 MG TABLET 7. Vitamin D deficiency - ICD9: 268.9, ICD10: E55.9 - VITAMIN D 25 HYDROXY 8. Elevated blood sugar - ICD9: 790.29, ICD10: R73.9 - HGB A1C 9. Screening for thyroid disorder - ICD9: V77.0, ICD10: Z13.29 - TSH BLD 10. Encounter for immunization - ICD9: V03.89, ICD10: Z23 - INFLUENZA SEASONAL QUADRIVALENT HIGH DOSE AGE 65+ - PNEUMOCOCCAL VACCINE (PREVNAR 20) - given today in office 11. Encounter for screening mammogram for malignant neoplasm of breast - ICD9: V76.12, ICD10: Z12.31 - KAYLA SCREENING Oj Hu APRN.BREAK OFF WORKER All of the above discussed with the patient in detail. Patient is in agreement with the above plan. Oj Hu APRN.BREAK OFF WORKER documented in this encounter [facility] 02-06-2022 Miscellaneous Notes Pt dropped off form to be filled out. Please call pt when it ready for clam picker. Form is in front office folder. documented in this encounter [facility] 09-26-2021 History of Presen t illness Narrative Episode Visit Count: 3 Therapist That Will Oversee The Plan Of Care: Yanique Alcaraz Start of Care Date: 08/01/21 Onset Date: 06/24/21 Plan of Care Certification Date: 08/01/21 Next Certification Due Date: 10/30/21 Patient Identified by Name and Date of : Yes REHABILITATION AND SPORTS THERAPY PHYSICAL THERAPY DISCONTINUANCE OF CARE PLAN OF CARE UPDATE: Assessment: Porfirio Padilla is discontinued from Physical Therapy services due to goal achievement.. Patient was seen for 3 visits from Start of Care Date: 08/01/21 to 09/26/2021 and treatment included: Therapeutic exercise and Neuromuscular re-education. Goals for Episode of Care: created on 08/01/21 through 10/30/21 Harris in home exercise program. Ongoing Patient will decrease pain to 0/10 with functional activities to allow patient to improve ambulation. MET Patient will demonstrate increase in right knee/hip global strength to 5/5 during manual muscle testing in order to improve function for prior functional tasks. MET Perform walking for length of time in grocery store to complete shopping with decreased report of symptoms/pain in 12 weeks. PM (Doesn't hurt during, possibly after) Perform all ADLs without pain. MET Patient will ascend and descend flight of stairs 8 steps without a rail. with no device independently and safe technique demonstrating step over step pattern. MET (good improvement) Patient Goals: Be able to walk farther than she does now with little/no Pain MET SUBJECTIVE: Patient Reason for Visit: Patient reports she is able to tolerate all exercises, has needed less ice. She reports she only has minor nagging pain that dissipates with ice application if she knows she has done too much. She has been modifying her activity and has little issues. 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 Functional Limitations: walking in the community (longer distances) Pain: Pain Pain Level: 0 Post Treatment Pain Post Treatment Pain Level: No Change PROMIS Scales Higher is Better 08/01/2021 Phys Func - Score 49 (within normal limits) Phys Func - Percentile 46 % Social Roles - Score 48 (within normal limits) Social Role - Percentile 42 % GH Physical - Score 50.8 (Very Good) GH Physical - Percentile 53 % GH Mental - Score 53.3 (Very Good) GH Mental - Percentile 63 % Self-Eff Symptom - Score 48 (Average) Self-Eff Symptom - Percentile 42 % T-scores: mean of general population = 50. 5 points is clinically meaningfully difference Percentiles provide an indication of how the patient's score ranks in relation to the general population. Higher percentile rankings indicate better function/quality of life. 50th percentile is the average of the general population and indicates half of respondents had a worse score. Lower is Better 08/01/2021 Fatigue - Score 47 (within normal limits) Fatigue - Percentile 62 % T-scores: mean of general population = 50. 5 points is clinically meaningfully difference Percentiles provide an indication of how the patient's score ranks in relation to the general population. Higher percentile rankings indicate better function/quality of life. 50th percentile is the average of the general population and indicates half of respondents had a worse score. OBJECTIVE MEASURES WITH LEVEL OF FUNCTION: LE Strength R Knee Flexion: 5/5 R Ankle Dorsiflexion (L4): 5/5 L Hip Flexion (L2): 5/5 L Hip ABduction: 5/5 L Knee Extension (L3): 5/5 L Knee Flexion: 5/5 TREATMENT: Therapeutic Exercise: 1: Reassessment 2: Nu-step lvl 3 x 10 min\ with discussion of goals, ADLs, pain intensity/frequency, progress, and DC plan Skilled Intervention: Patient was educated in proper exercise technique and purpose for exercises. Reviewed and educated patient on additions/changes for home exercise program as above (*). Skilled judgment was provided in selection of appropriate interventions. Provided written instruction for home exercise program to facilitate proper performance and compliance. Patient education as noted. Neuromuscular Re-Education: 1: *4-stage balance EO/EC/on compliant surface EO x 10s each position 1-2 trials 2: Wobble board lateral/fwd/bwd x 1 min each 3: Educated on importance of (including A&P) proprioceptor training on ankle and knee stability Skilled Intervention: Skilled judgment used to assess appropriate program for balance and coordination activity. Reviewed and educated patient on additions/changes for home program as noted above with an (*). Correct performance of home program was facilitated with verbal cueing. Billing Therapeutic Exercise Treatment Minutes: 20 Neuromuscular Re-Education Treatment Minutes: 18 Total Treatment Time Minutes (timed/untimed): 38 Saundra Alcaraz PT documented in this encounter [facility] 09-09-2021 Instructions Oj Hu APRN.BREAK OFF WORKER - 09/09/2021 1:24 PM EDT ASSESSMENT/PLAN: 1. Essential hypertension - ICD9: 401.9, ICD10: I10 - good control - Continue current medication(s) - Encouraged dietary sodium restriction/DASH diet - Recommended regular aerobic exercise. - Recommend home blood pressure monitoring, to bring results in on next visit - Discussed need and benefit for weight loss. - Reviewed risks of HTN and principles of treatment - Goal of BP <130/80 - Recommended no refined sugar, low refined starch, healthy oil intake (olive oil), healthy protein (fish) along the lines of the Mediterranean diet. - LISINOPRIL 10 MG TABLET 2. Hyperlipidemia, unspecified hyperlipidemia type - ICD9: 272.4, ICD10: E78.5 - good control - Continue current medication. - Encouraged following a low fat, low cholesterol diet. - Encouraged following a low carbohydrate, healthy oil intake diet. - ATORVASTATIN 10 MG TABLET 3. Urinary urgency - ICD9: 788.63, ICD10: R39.15 - OXYBUTYNIN CHLORIDE 5 MG TABLET Oj Hu APRN.BREAK OFF WORKER documented in this encounter [facility] 09-09-2021 History of Presen t illness Narrative SUBJECTIVE: Porfirio Padilla is a 71 year old female who presents in follow up of HTN and Hyperlipidemia. PMH GERD, urinary incontinence. Patient denies changes in health since last office visit. Reports feeling well. Denies concerns or complaints today. I reviewed her past medical, surgical, social, and family histories today and updated chart. Allergies, chronic medications, and supplements were also reviewed and her list is now up to date. HTN: Ms. Padilla indicates that she is feeling well and denies any symptoms referable to elevated blood pressure. Specifically denies headache, chest pain, palpitations, dyspnea, peripheral edema, claudication symptoms, orthopnea, fatigue and PND. Patient denies any side effects of her medication(s) and is compliant with their regimen. She does check BP's away from this office with average BP's in the 133-155/75-87 range. Porfirio denies regular aerobic exercise. She watches her diet for sodium, low fat and low cholesterol some of the time. She is taking lisinopril 10 mg daily. Last 3 Encounter BP Readings: Date: BP: 07/23/2021 128/76 03/11/2021 122/60 09/10/2020 128/72 CMP: Glucose 105 03/12/2021 BUN 16 03/12/2021 Creatinine 0.94 03/12/2021 Sodium 140 03/12/2021 Potassium 4.3 03/12/2021 Chloride 103 03/12/2021 CO2 28 03/12/2021 Protein, Total 7.0 03/12/2021 Albumin 4.3 03/12/2021 Calcium 9.7 03/12/2021 Alkaline Phosphatase 77 03/12/2021 Bilirubin, Total 0.3 03/12/2021 AST 14 03/12/2021 ALT 18 03/12/2021 Hyperlipidemia. Ms. Padilla reports doing well on current therapy of atorvastatin (Lipitor) 10 mg. Denies side effects of muscle weakness or achiness. Her most recent lipid panels are: Cholesterol, Total (mg/dL) Date Value 03/12/2021 233 03/13/2020 225 12/17/2018 238 01/18/2018 204 HDL Cholesterol (mg/dL) Date Value 03/12/2021 65 03/13/2020 67 12/17/2018 69 01/18/2018 57 LDL Cholesterol (mg/dL) Date Value 03/12/2021 143 03/13/2020 140 LDL (mg/dL) Date Value 12/17/2018 152 01/18/2018 120 Triglyceride (mg/dL) Date Value 03/12/2021 125 03/13/2020 92 12/17/2018 87 01/18/2018 133 GERD: chronic stable. She is taking Protonix 40 mg daily. She does have episodic flares and will take Tums which is effective. Flares about once a week. Will occur at night. Takes tums and resolves. She tries to not eat anything after 9 pm. Chocolate is a trigger for her symptoms. Limits to 3 cups coffee a day. Drinks 1-3 cans of beer at most a day. Sometimes not every day. She does see Dr Siegel for management. She is up to date with her EGD. she is due to see him in November. Urinary urgency: she is taking ditropan for this twice daily. She is tolerating this well. Reports she has not even been getting up at night to urinate which improved. Previously was getting up several times a night. Advanced Directives: LW and DPOA-HC and have these documents in chart. Her daughters are her decision makers. Charissa Montana and Rosalee Ruiz. Preventative: she has had COVID vaccines and booster. She is waiting for her 2nd booster. She received both shingles vaccines. She does not exercise. She does not smoke. Drinks 1-3 cans a beer at most a day. She had her colonoscopy with Dr Siegel 12/19/20. Reports having polyps and repeat 5 yrs. Some elements of above documentation were copied from my progress note of 03/11/21 and have been reexamined and updated where appropriate. All elements reflect the current assessment and medical decision making today . PAST MEDICAL HISTORY Diagnosis Date Abdominal bloating Abdominal pain Arthritis Atrophic vaginitis Candidal vulvovaginitis Chest pain Degenerative joint disease of hand Diverticular disease Diverticulitis of colon DJD (degenerative joint disease) right hand Electrocardiogram abnormal Elevated blood pressure reading without diagnosis of hypertension GERD (gastroesophageal reflux disease) Hand joint pain Hiatal hernia Hypertension Incomplete emptying of bladder Increased frequency of urination Known medical problems Computed tomography result abnormal Known medical problems Urgent desire to urinate Mixed stress and urge urinary incontinence Multiple nodules of lung Nausea Pain in right hand Pain in right shoulder Pain in unspecified joint Postmenopausal state Psoriasis Urge incontinence of urine Urinary urgency PAST SURGICAL HISTORY Procedure Laterality Date BREAST BIOPSY INCISIONAL LEFT cyst BUNIONECTOMY, [place]IDUS-TYPE bilateral CARPAL TUNNEL RIGHT WRIST 1988 Wrist endoscopy/surgery COLONOSCOPY FLX DX W/COLLJ SPEC WHEN PFRMD 12/10/2015 Colonoscopy - Colonoscopy with Cold Biopsy. Digestive Disease Consults./Dr. Nicole CYSTOSCOPY 07/26/2014 ESOPHAGOGASTRODUODENOSCOPY TRANSORAL DIAGNOSTIC 07/02/[address] Nicole PAST SURGICAL HISTORY OF CO2 laser ablation of vaginal tissue VAGINAL HYSTERECTOMY UTERUS 250 GM/< 1979 prolapse Social History Tobacco Use Smoking status: Never Smoker Smokeless tobacco: Never Used Substance Use Topics Alcohol use: Yes Comment: rare/ Type: beer, hard liquor, and wine; Patient has not been in alcohol treatment program; Comments: Drinks 0-5 alcohol drinks per week Drug use: No ALLERGIES Allergen Reactions Med-Hist Unknown Non Specific Or Non Database Allergies Include: Shrimp (Reaction: Nausea Other Reaction: Vomiting) Morphine Intolerance, Other: See Comments wires Pt up-insomnia Current Outpatient Medications Medication Sig naproxen (NAPROSYN) 500 mg tablet Take 1 tablet by mouth twice daily as needed (FOR PAIN - TAKE WITH FOOD.). atorvastatin (LIPITOR) 10 mg tablet Take 1 tablet by mouth once daily. BEFORE BEDTIME oxybutynin (DITROPAN) 5 mg tablet Take 1 tablet by mouth twice daily. lisinopril (ZESTRIL, PRINIVIL) 10 mg tablet Take 1 tablet by mouth once daily. calcium carbonate (TUMS) 500 mg chew Take by mouth twice daily. pantoprazole DR (PROTONIX) 40 mg tablet Take 40 mg by mouth once daily. BACILLUS COAGULANS (PROBIOTIC, B. COAGULANS, ORAL) Take 1 tablet by mouth once daily. Blood Pressure Test Kit-Large kit Blood Pressure Monitor kit 1 Kit as directed. calcium carbonate-vitamin D3 600 mg(1,500mg) -800 unit tab Take by mouth. 800 Units of Vitamin D 3 and 1000mg of Calcium one daily omega-3 fatty acids (FISH OIL CONCENTRATE) 1,000 mg cap Take 2 g by mouth twice daily. No current facility-administered medications for this visit. Review of Systems Constitutional: Negative for chills, diaphoresis, fever, malaise/fatigue and weight loss. HENT: Negative. Negative for congestion, ear pain, sore throat and tinnitus. Eyes: Negative. Negative for photophobia and pain. Respiratory: Positive for cough. Negative for sputum production, shortness of breath and wheezing. Occasional cough not new. Non productive Cardiovascular: Negative for chest pain, palpitations, orthopnea and leg swelling. Gastrointestinal: Negative. Negative for abdominal pain, blood in stool, constipation, diarrhea, heartburn, melena, nausea and vomiting. Genitourinary: Negative for dysuria, flank pain, frequency, hematuria and urgency. Musculoskeletal: Positive for joint pain. Negative for falls and neck pain. Right knee pain, worsens with increase activity. She reports she is doing exercises. She is doing them once every other day. She is taking naproxen twice a day. ROM is good. She is in therapy right now Skin: Negative. Negative for itching. Neurological: Positive for dizziness. Negative for tingling, tremors, sensory change, focal weakness, weakness and headaches. Occasional dizziness when gets up from lying position. Not new. No change Endo/Heme/Allergies: Negative. Negative for environmental allergies. Does not bruise/bleed easily. Psychiatric/Behavioral: Negative for depression and substance abuse. The patient is not nervous/anxious and does not have insomnia. 09/09/21 1303 09/09/21 1318 BP: 132/72 132/78 BP Site: Right Arm Right Arm BP Position: Sitting BP Cuff Size: Regular Adult Pulse: 73 Resp: 18 Temp: 36.8 C (98.2 F) TempSrc: Oral SpO2: 98% Weight: 77.7 kg (171 lb 6.4 oz) Height: 154.9 cm (5' 1) Physical Exam Vitals and nursing note reviewed. Constitutional: General: She is not in acute distress. Appearance: Normal appearance. She is obese. She is not ill-appearing. HENT: Head: Normocephalic and atraumatic. Cardiovascular: Rate and Rhythm: Normal rate and regular rhythm. Pulses: Normal pulses. Heart sounds: Normal heart sounds. Pulmonary: Effort: Pulmonary effort is normal. No respiratory distress. Breath sounds: Normal breath sounds. No wheezing, rhonchi or rales. Musculoskeletal: Cervical back: Normal range of motion and neck supple. Skin: General: Skin is warm and dry. Neurological: Mental Status: She is alert and oriented to person, place, and time. Psychiatric: Mood and Affect: Mood normal. Behavior: Behavior normal. Thought Content: Thought content normal. Judgment: Judgment normal. Component Latest Ref Rng & Units 03/12/2021 Protein, Total 6.3 - 8.0 g/dL 7.0 Albumin 3.9 - 4.9 g/dL 4.3 Calcium 8.5 - 10.2 mg/dL 9.7 Bilirubin, Total 0.2 - 1.3 mg/dL 0.3 Alkaline Phosphatase 34 - 123 U/L 77 AST 13 - 35 U/L 14 ALT 7 - 38 U/L 18 Glucose 74 - 99 mg/dL 105 (H) BUN 7 - 21 mg/dL 16 Creatinine 0.58 - 0.96 mg/dL 0.94 Sodium 136 - 144 mmol/L 140 Potassium 3.7 - 5.1 mmol/L 4.3 Chloride 97 - 105 mmol/L 103 CO2 22 - 30 mmol/L 28 Anion Gap 9 - 18 mmol/L 9 eGFR- >60 eGFR-All Other Races 59 WBC 3.70 - 11.00 k/uL 4.82 RBC 3.90 - 5.20 m/uL 4.82 Hemoglobin 11.5 - 15.5 g/dL 14.2 Hematocrit 36.0 - 46.0 % 44.0 MCV 80.0 - 100.0 fL 91.3 MCH 26.0 - 34.0 pg 29.5 MCHC 30.5 - 36.0 g/dL 32.3 RDW-CV 11.5 - 15.0 % 13.7 Platelet Count 150 - 400 k/uL 275 MPV 9.0 - 12.7 fL 9.1 Cholesterol, Total <200 mg/dL 233 (H) Triglyceride <150 mg/dL 125 HDL Cholesterol >39 mg/dL 63 Non HDL Cholesterol <130 mg/dL 168 (H) Fasting Time hrs 12 VLDL Cholesterol <30 mg/dL 25 TC:HDL Ratio <5.10 3.58 LDL Cholesterol <100 mg/dL 143 (H) LDL:HDL Ratio <2.54 2.20 TSH 0.270 - 4.200 uU/mL 2.000 Vitamin D 25 Hydroxy 30.0 - 100.0 ng/mL 28.8 (L) ASSESSMENT/PLAN: 1. Essential hypertension - ICD9: 401.9, ICD10: I10 - good control - Continue current medication(s) - Encouraged dietary sodium restriction/DASH diet - Recommended regular aerobic exercise. - Recommend home blood pressure monitoring, to bring results in on next visit - Discussed need and benefit for weight loss. - Reviewed risks of HTN and principles of treatment - Goal of BP <130/80 - Recommended no refined sugar, low refined starch, healthy oil intake (olive oil), healthy protein (fish) along the lines of the Mediterranean diet. - LISINOPRIL 10 MG TABLET 2. Hyperlipidemia, unspecified hyperlipidemia type - ICD9: 272.4, ICD10: E78.5 - Fair control - Continue current medication. - Encouraged following a low fat, low cholesterol diet. - Encouraged following a low carbohydrate, healthy oil intake diet. - ATORVASTATIN 10 MG TABLET 3. Urinary urgency - ICD9: 788.63, ICD10: R39.15 - Chronic controlled - OXYBUTYNIN CHLORIDE 5 MG TABLET Oj Hu APRN.CNP All of the above discussed with the patient in detail. Patient is in agreement with the above plan. Oj Hu APRN.CNP documented in this encounter [facility] 08-29-2021 History of Presen t illness Narrative Episode Visit Count: 2 Therapist That Will Oversee The Plan Of Care: Yanique Alcaraz Start of Care Date: 08/01/21 Onset Date: 06/24/21 Plan of Care Certification Date: 08/01/21 Next Certification Due Date: 10/30/21 Patient Identified by Name and Date of : Yes [facility] PHYSICAL THERAPY PROGRESS REPORT PLAN OF CARE UPDATE: Assessment: Porfirio Padilla demonstrates minimal improvement in walking and recreational activities. She hasprogressed toward goals. 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 Current prognosis is Good due to: current objective clinical presentation;acuteness of condition. She will benefit from continued skilled therapy services to meet the updated goals for this plan of care as noted below. Goals for Episode of Care: created on 08/01/21 through 10/30/21 Harris in home exercise program. Ongoing Patient will decrease pain to 0/10 with functional activities to allow patient to improve ambulation. PM Patient will demonstrate increase in right knee/hip global strength to 5/5 during manual muscle testing in order to improve function for prior functional tasks. PM Perform walking for length of time in grocery store to complete shopping with decreased report of symptoms/pain in 12 weeks. NM Perform all ADLs without pain. PM Patient will ascend and descend flight of stairs 8 steps without a rail. with no device independently and safe technique demonstrating step over step pattern. Met (without pain) Patient Goals: Be able to walk farther than she does now with little/no Pain Planned Interventions, Frequency, and Duration: 1x every other week, 12 weeks Total Number of Visits Planned: 6 Patient to be seen for Therapeutic exercise (45902);Neuromuscular re-education (56048);Manual therapy (17534);Therapeutic activities (36754);Gait Training (91632);Self-fpc management (02635);E-Stim Unattended (65926);E-Stim Attended/TENS (81888);Ultrasound (91745) SUBJECTIVE: Patient Reason for Visit: Patient reports she notices pain 2-4/10 depending on what she does. The more activity she does in the day, the more pain she will notice. She would like to follow up before vacation in September. 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 5 points is clinically meaningfully difference Percentiles provide an indication of how the patient's score ranks in relation to the general population. Higher percentile rankings indicate better function/quality of life. 50th percentile is the average of the general population and indicates half of respondents had a worse score. Lower is Better 08/01/2021 Fatigue - Score 47 (within normal limits) Fatigue - Percentile 62 % T-scores: mean of general population = 50. 5 points is clinically meaningfully difference Percentiles provide an indication of how the patient's score ranks in relation to the general population. Higher percentile rankings indicate better function/quality of life. 50th percentile is the average of the general population and indicates half of respondents had a worse score. OBJECTIVE MEASURES WITH LEVEL OF FUNCTION: LE Strength R Hip Flexion (L2): 5/5 R Hip ABduction: 5/5 R Knee Flexion: 4+/5 TREATMENT: Therapeutic Exercise: 1: *Review of quad set with modification to towel under knee 5s x 12 2: *Quad set with DF and SLR x 12 3: *mini-squat with proper positioning x 10 (mild pain-modified to shollow squat) 4: *S/L SLR with improved form toe out and hip extension x 12 5: *bridge with heel dig 12x2 sets/SL bridge x 5 6: *hamstring sets 5s x 10 7: *Standing hamstring curls x 12 8: Nu-step lvl 2 x 6 min Skilled Intervention: Patient was educated in proper exercise technique and purpose for exercises. Skilled judgment was provided in selection of appropriate interventions. Provided written instruction for home exercise program to facilitate proper performance and compliance. Billing Therapeutic Exercise Treatment Minutes: 45 Total Treatment Time Minutes (timed and untimed codes) : 45 Saundra Alcaraz PT documented in this encounter [facility] 09-10-2020 History of Past i llness Narrative Problem Noted Date Resolved Date Pain in right shoulder 1 Elevated blood pressure read ing without diagnosis of hypertension 09/10/2020 documented as of this encounter (statuses as of 08/29/2021) [facility]21 History of Past illness Narrative* Problem Noted Date Resolved Date Pain in right shoulder 1 Elevated blood pressure read ing without diagnosis of hypertension 09/10/2020 documented as of this encounter (statuses as of 09/09/2021) [facility] History of Past illness Narrative* Problem Noted Date Resolved Date Pain in right shoulder 1 Elevated blood pressure read ing without diagnosis of hypertension 09/10/2020 documented as of this encounter (statuses as of 09/26/2021) [facility] History of Past illness Narrative* Problem Noted Date Resolved Date Pain in right shoulder 1 Elevated blood pressure read ing without diagnosis of hypertension 09/10/2020 documented as of this encounter (statuses as of 02/06/2022) [address]20-2021 History of Past illness Narrative* Problem Noted Date Resolved Date Pain in right shoulder 1 Elevated blood pressure read ing without diagnosis of hypertension 09/10/2020 documented as of this encounter (statuses as of 02/27/2022) [address]20-2021 History of Past illness Narrative* Problem Noted Date Resolved Date Pain in right shoulder 1 Elevated blood pressure read ing without diagnosis of hypertension 09/10/2020 documented as of this encounter (statuses as of 03/10/2022) [address]20-2021 History of Past illness Narrative* Problem Noted Date Resolved Date Pain in right shoulder 1 Elevated blood pressure read ing without diagnosis of hypertension 09/10/2020 documented as of this encounter (statuses as of 03/12/2022) [address]20-2021 History of Past illness Narrative* Problem Noted Date Resolved Date Pain in right shoulder 1 Elevated blood pressure read ing without diagnosis of hypertension 09/10/2020 documented as of this encounter (statuses as of 03/13/2022) [address]20-2021 History of Past illness Narrative* Problem Noted Date Resolved Date Pain in right shoulder 1 Elevated blood pressure read ing without diagnosis of hypertension 09/10/2020 documented as of this encounter (statuses as of 03/17/2022) [address]20-2021 History of Past illness Narrative* Problem Noted Date Resolved Date Pain in right shoulder 1 Elevated blood pressure read ing without diagnosis of hypertension 09/10/2020 documented as of this encounter (statuses as of 03/25/2022) [address]20-2021 History of Past illness Narrative* Problem Noted Date Resolved Date Pain in right shoulder 1 Elevated blood pressure read ing without diagnosis of hypertension 09/10/2020 documented as of this encounter (statuses as of 03/27/2022) [address]20-2021 History of Past illness Narrative* Problem Noted Date Resolved Date Pain in right shoulder 1 Elevated blood pressure read ing without diagnosis of hypertension 09/10/2020 documented as of this encounter (statuses as of 09/21/2022) [address]21 History of Past illness Narrative* Problem Noted Date Resolved Date Pain in right shoulder Elevated blood pressure read ing without diagnosis of hypertension 09/10/2020 documented as of this encounter (statuses as of 10/05/2022) [address]20-2021 History of Past illness Narrative* Problem Noted Date Resolved Date Pain in right shoulder Elevated blood pressure read ing without diagnosis of hypertension 09/10/2020 documented as of this encounter (statuses as of 10/20/2022) [address]20-2021 History of Past illness Narrative* Problem Noted Date Resolved Date Pain in right shoulder Elevated blood pressure read ing without diagnosis of hypertension 09/10/2020 documented as of this encounter (statuses as of 10/22/2022) [address]20-2021 History of Past illness Narrative* Problem Noted Date Diagnosed Date Resolved Date Pain in right shoulder 09/10 Elevated blood pressure read ing without diagnosis of hypertension 09/10/2020 documented as of this encounter (statuses as of 03/23/2023) [address]20-2021 History of Past illness Narrative* Problem Noted Date Diagnosed Date Resolved Date Pain in right shoulder 09/10 Elevated blood pressure read ing without diagnosis of hypertension 09/10/2020 documented as of this encounter (statuses as of 04/15/2023) [address]20-2021 History of Past illness Narrative* Problem Noted Date Diagnosed Date Resolved Date Pain in right shoulder 09/10 Elevated blood pressure read ing without diagnosis of hypertension 09/10/2020 documented as of this encounter (statuses as of 04/15/2023) [address]20-2021 History of Past illness Narrative* Problem Noted Date Diagnosed Date Resolved Date Pain in right shoulder 09/10 Elevated blood pressure read ing without diagnosis of hypertension 09/10/2020 documented as of this encounter (statuses as of 04/16/2023) [address]20-2021 History of Past illness Narrative* Problem Noted Date Diagnosed Date Resolved Date Pain in right shoulder 09/10 Elevated blood pressure read ing without diagnosis of hypertension 09/10/2020 documented as of this encounter (statuses as of 06/13/2023) [facility] note* Diagnosis Acute pain of right knee- Primary [facility] Diagnosis Essential hypertension Unspecified essential hypertension Hyperlipidemia, unspecified hyperlipidemia type Urinary urgency Urgency of urination documented in this encounter [facility] note* Diagnosis Acute pain of right knee- Primary documented in this encounter [facility] note* Diagnosis Medication management Encounter for long-term (current) use of other medications Essential hypertension Unspecified essential hypertension documented in this encounter [facility] note* Diagnosis Wellness examination- Primary Essential hypertension Unspecified essential hypertension Gastroesophageal reflux disease, unspecified whether esophagitis present Hyperlipidemia, unspecified hyperlipidemia type Skin candidiasis Candidiasis of skin and nails Urinary urgency Urgency of urination Vitamin D deficiency Unspecified vitamin D deficiency Elevated blood sugar Other abnormal glucose Screening for thyroid disorder Encounter for immunization Need for other specified prophylactic vaccination against single bacterial disease Encounter for screening mammogram for malignant neoplasm of breast Other screening mammogram documented in this encounter [facility] note* Diagnosis Encounter for screening mammogram for malignant neoplasm of breast Other screening mammogram [facility] Diagnosis Essential hypertension- Primary Unspecified essential hypertension Chest pain, unspecified type Hyperlipidemia, unspecified hyperlipidemia type Gastroesophageal reflux disease, unspecified whether esophagitis present Encounter for screening for cardiovascular disorders Screening for other and unspecified cardiovascular conditions documented in this encounter [facility] note* Diagnosis Medicare annual wellness visit, subsequent- Primary Routine general medical examination at a health care facility Encounter for immunization Need for other specified prophylactic vaccination against single bacterial disease Post-menopausal Asymptomatic postmenopausal status (age-related) (natural) Vitamin D deficiency Unspecified vitamin D deficiency Screening for thyroid disorder Encounter for screening mammogram for malignant neoplasm of breast Other screening mammogram Encounter for lipid screening for cardiovascular disease Screening for lipoid disorders Encounter for screening for diabetes mellitus Screening for diabetes mellitus [facility] Diagnosis Post-menopausal Asymptomatic postmenopausal status (age-related) (natural) [facility] Diagnosis Encounter for screening mammogram for malignant neoplasm of breast Other screening mammogram documented in this encounter [facility] note* Diagnosis Encounter for lipid screening for cardiovascular disease Screening for lipoid disorders documented in this encounter [facility] note* Diagnosis Urinary urgency Urgency of urination documented in this encounter [facility] note* Diagnosis Essential hypertension- Primary Unspecified essential hypertension Hyperlipidemia, unspecified hyperlipidemia type Anxiety and depression Dysthymic disorder Gastroesophageal reflux disease, unspecified whether esophagitis present Urinary urgency Urgency of urination documented in this encounter [facility] note* Diagnosis Anxiety and depression- Primary Dysthymic disorder Obesity, Class I, BMI 30-34.9 Obesity, unspecified documented in this encounter [facility] note* Diagnosis Essential hypertension Unspecified essential hypertension Hyperlipidemia, unspecified hyperlipidemia type documented in this encounter [facility] note* Diagnosis Medicare annual wellness visit, subsequent- Primary Routine general medical examination at a health care facility Essential hypertension Unspecified essential hypertension Gastroesophageal reflux disease, unspecified whether esophagitis present Skin candidiasis Candidiasis of skin and nails Encounter for screening mammogram for malignant neoplasm of breast Other screening mammogram Hyperlipidemia, unspecified hyperlipidemia type Vitamin D deficiency Unspecified vitamin D deficiency Screening for thyroid disorder Encounter for screening for diabetes mellitus Screening for diabetes mellitus documented in this encounter [facility] note* Diagnosis Nonspecific abnormal results of thyroid function study- Primary documented in this encounter [facility] note* Diagnosis Urinary urgency Urgency of urination documented in this encounter [facility] note* Diagnosis Anxiety and depression Dysthymic disorder documented in this encounter [facility] for referral (narrative)* Outpatient Procedure (Routine) - Pending Review Specialty Diagnoses / Procedures Referred By Tuyet narvaez [facility] Diagnoses Essential hypertension Procedures ECG COMPLETE ECG ROUTINE ECG W/LEAST 12 LDS W/I&R Oj Hu APRN.BREAK OFF WORKER [address] [place] [address] [facility] [place] [address] [place] [address] Referral ID Status Reason Start Date Expiration Date Visits Requested Visits Authorized [id number] Pending Review Auto-Generat ed Referral 2 03/10/2023 1 1 * Diagnostic Procedure Only (Routine) - Pending Review Specialty Diagnoses / Procedures Referred By Tuyet navraez Referred To Contact [facility] Diagnoses Encounter for screening mammogram for malignant neoplasm of breast Procedures KAYLA SCREENING SCREENING MAMMOGRAPHY BI 2-VIEW BREAST INC CAD Oj Hu APRN.BREAK OFF WORKER [address] [place] [address] [facility] [address] [place] [address] Referral ID Status Reason Start Date Expiration Date Visits Requested Visits Authorized [id number] Pending Review Auto-Generat ed Referral 04/09/2023 1 1 [facility] for referral (narrative)* Diagnostic Procedure Only (Routine) - Closed Specialty Diagnoses / Procedures Referred By Contac t Referred To Contact [facility] Diagnoses Encounter for screening mammogram for malignant neoplasm of breast Procedures KAYLA SCREENING SCREENING MAMMOGRAPHY BI 2-VIEW BREAST INC CAD Oj Hu APRN.BREAK OFF WORKER [address] [place] [address] [facility] [address] [place] [address] Referral ID Status Reason Start Date Expiration Date V isits Requested Visits Authorized [id number] Closed Auto-Generate d Referral 03/10/2022 04/09/2023 1 1 [facility] for referral (narrative)* Diagnostic Procedure Only (Routine) - Pending Review Specialty Diagnoses / Procedures Referred By Contac t Referred To Contact [facility] Diagnoses Encounter for screening for cardiovascular disorders Procedures US ANKLE BRACHIAL INDICES NON-INVAS PHYSIOLOGIC STD EXTREMITY ART 2 LEVEL Oj Hu LEGAL INSTRUCTOR.BREAK OFF WORKER [address] [place] [address] [facility] Referral ID Status Reason Start Date Expiration Date Visits Requested Visits Authorized [id number] Pending Review Auto-Generat ed Referral 09/16/2022 10/16/2023 1 1 [facility] for referral (narrative)* Outpatient Procedure (Routine) - Authorized Specialty Diagnoses / Procedures Referred By Contac t Referred [facility] Diagnoses Encounter for lipid screening for cardiovascular disease Procedures ECG COMPLETE ECG ROUTINE ECG W/LEAST 12 LDS W/I&R Oj Hu APRN.BREAK OFF WORKER [address] [place] [address] [facility] [place] [address] [place] [address] Referral ID Status Reason Start Date Expiration Date Visits Requested Visits Authorized [id number] Authorized Auto-Generat ed Referral 3 03/21/2024 1 1 * Diagnostic Procedure Only (Routine) - Authorized Specialty Diagnoses / Procedures Referred By Tuyet narvaez Referred To Contact [facility] Diagnoses Encounter for screening mammogram for malignant neoplasm of breast Procedures KAYLA SCREENING SCREENING MAMMOGRAPHY BI 2-VIEW BREAST INC CAD Oj Hu APRN.BREAK OFF WORKER [address] [place] [address] [facility] [address] [place] [address] Referral ID Status Reason Start Date Expiration Date Visits Requested Visits Authorized [id number] Authorized Auto-Generat ed Referral 3 04/20/2024 1 1 [facility] for referral (narrative)* Diagnostic Procedure Only (Routine) - New Request Specialty Diagnoses / Procedures Referred By Tuyet narvaez Referred To Contact [facility] Diagnoses Encounter for screening mammogram for malignant neoplasm of breast Procedures KAYLA SCREENING W DARELL SCREENING DIGITAL BREAST TOMOSYNTHESIS BI SCREENING MAMMOGRAPHY BI 2-VIEW BREAST INC CAD Oj Hu APRN.BREAK OFF WORKER [address] [place] [address] [facility] [address] [place] [address] Referral ID Status Reason Start Date Expiration Date Visits Requested Visits Authorized [id number] New Request Auto-Generat ed Referral 4 05/04/2025 1 1 [facility] for visit Narrative* Diagnostic Procedure Only (Routine) - Closed Specialty Diagnoses / Procedures Referred By Contac t Referred To Contact [facility] Diagnoses Encounter for screening mammogram for malignant neoplasm of breast Procedures KAYLA SCREENING SCREENING MAMMOGRAPHY BI 2-VIEW BREAST INC CAD Oj Hu, LEGAL INSTRUCTOR.BREAK OFF WORKER [address] [place] [address] [facility] [address] [place] [address] Referral ID Status Reason Start Date Expiration Date V isits Requested Visits Authorized [id number] Closed Auto-Generate d Referral 03/10/2022 04/09/2023 1 1 [facility] for visit Narrative* Diagnostic Procedure Only (Routine) - Closed Specialty Diagnoses / Procedures Referred By Tuyet t Referred To Contact [facility] Diagnoses Encounter for screening mammogram for malignant neoplasm of breast Procedures KAYLA SCREENING SCREENING MAMMOGRAPHY BI 2-VIEW BREAST INC CAD Oj Hu, LEGAL INSTRUCTOR.BREAK OFF WORKER [address] [place] [address] [facility] [address] [place] [address] Referral ID Status Reason Start Date Expiration Date V isits Requested Visits Authorized [id number] Closed Auto-Generate d Referral 03/22/2023 04/20/2024 1 1 [facility] for visit Narrative* Outpatient Procedure (Routine) - Closed Specialty Diagnoses / Procedures [facility] Diagnoses Encounter for lipid screening for cardiovascular disease Procedures ECG COMPLETE ECG ROUTINE ECG W/LEAST 12 LDS W/I&R Oj Hu, LEGAL INSTRUCTOR.BREAK OFF WORKER [address] [place] [address] [facility] [place] [address] [place] [address] Referral ID Status Reason Start Date Expiration Date V isits Requested Visits Authorized [id number] Closed Auto-Generate d Referral 03/22/2023 03/21/2024 1 1 [facility] Summary Purpose Family History No Family History Records FoundNo Family History Records FoundNo Family History Records FoundNo Family History Records Found Advance Directives No Advanced Directives Records FoundDocuments on File Type Date Recorded Patient Log Turner Expl anation Advance Directive(s) 09/12/2020 2:10 PM Documents on File Type Date Recorded Patient Log Turner Expl anation Advance Directive(s) 09/12/2020 2:10 PM Chief Complaint and Reason for Visit Chief Complaint MODERNA VACCINE Assessments No Assessments Information Available Additional Source Comments INFORMATION SOURCE (unrecogn ized section and content) DATE CREATED AUTHOR 03/20/2020 [facility] DATE CREATED AUTHOR AUTHOR'S ORGANIZ ATION 06/20/2024 [facility] DATE CREATED AUTHOR AUTHOR'S ORGANIZ ATION 01/26/2025 [facility] DATE CREATED AUTHOR AUTHOR'S ORGANIZ ATION 03/16/2025 [facility] Source Comments (unrecognize d section and content) In the event this informatio n is protected by the Federal Confidentiality of Alcohol and Drug Abuse Patient Records regulations: The Federal rules restrict any use of the information to criminally investigate or prosecute any alcohol or drug abuse patient.[facility] the event this information is protected by the Federal Confidentiality of Alcohol and Drug Abuse Patient Records regulations: The Federal rules restrict any use of the information to criminally investigate or prosecute any alcohol or drug abuse patient.[facility] CampusIn the event this information is protected by the Federal Confidentiality of Alcohol and Drug Abuse Patient Records regulations: The Federal rules restrict any use of the information to criminally investigate or prosecute any alcohol or drug abuse patient.[facility] CampusIn the event this information is protected by the Federal Confidentiality of Alcohol and Drug Abuse Patient Records regulations: The Federal rules restrict any use of the information to criminally investigate or prosecute any alcohol or drug abuse patient.[facility] CampusIn the event this information is protected by the Federal Confidentiality of Alcohol and Drug Abuse Patient Records regulations: The Federal rules restrict any use of the information to criminally investigate or prosecute any alcohol or drug abuse patient.[facility] CampusIn the event this information is protected by the Federal Confidentiality of Alcohol and Drug Abuse Patient Records regulations: The Federal rules restrict any use of the information to criminally investigate or prosecute any alcohol or drug abuse patient.[facility] CampusIn the event this information is protected by the Federal Confidentiality of Alcohol and Drug Abuse Patient Records regulations: The Federal rules restrict any use of the information to criminally investigate or prosecute any alcohol or drug abuse patient.[facility] CampusIn the event this information is protected by the Federal Confidentiality of Alcohol and Drug Abuse Patient Records regulations: The Federal rules restrict any use of the information to criminally investigate or prosecute any alcohol or drug abuse patient.[facility] CampusIn the event this information is protected by the Federal Confidentiality of Alcohol and Drug Abuse Patient Records regulations: The Federal rules restrict any use of the information to criminally investigate or prosecute any alcohol or drug abuse patient.[facility] CampusIn the event this information is protected by the Federal Confidentiality of Alcohol and Drug Abuse Patient Records regulations: The Federal rules restrict any use of the information to criminally investigate or prosecute any alcohol or drug abuse patient.[facility] CampusIn the event this information is protected by the Federal Confidentiality of Alcohol and Drug Abuse Patient Records regulations: The Federal rules restrict any use of the information to criminally investigate or prosecute any alcohol or drug abuse patient.[facility] CampusIn the event this information is protected by the Federal Confidentiality of Alcohol and Drug Abuse Patient Records regulations: The Federal rules restrict any use of the information to criminally investigate or prosecute any alcohol or drug abuse patient.[facility] CampusIn the event this information is protected by the Federal Confidentiality of Alcohol and Drug Abuse Patient Records regulations: The Federal rules restrict any use of the information to criminally investigate or prosecute any alcohol or drug abuse patient.[facility] CampusIn the event this information is protected by the Federal Confidentiality of Alcohol and Drug Abuse Patient Records regulations: The Federal rules restrict any use of the information to criminally investigate or prosecute any alcohol or drug abuse patient.[facility] CampusIn the event this information is protected by the Federal Confidentiality of Alcohol and Drug Abuse Patient Records regulations: The Federal rules restrict any use of the information to criminally investigate or prosecute any alcohol or drug abuse patient.[facility] CampusIn the event this information is protected by the Federal Confidentiality of Alcohol and Drug Abuse Patient Records regulations: The Federal rules restrict any use of the information to criminally investigate or prosecute any alcohol or drug abuse patient.[facility] CampusIn the event this information is protected by the Federal Confidentiality of Alcohol and Drug Abuse Patient Records regulations: The Federal rules restrict any use of the information to criminally investigate or prosecute any alcohol or drug abuse patient.[facility] CampusIn the event this information is protected by the Federal Confidentiality of Alcohol and Drug Abuse Patient Records regulations: The Federal rules restrict any use of the information to criminally investigate or prosecute any alcohol or drug abuse patient.[facility] CampusIn the event this information is protected by the Federal Confidentiality of Alcohol and Drug Abuse Patient Records regulations: The Federal rules restrict any use of the information to criminally investigate or prosecute any alcohol or drug abuse patient.[facility] CampusIn the event this information is protected by the Federal Confidentiality of Alcohol and Drug Abuse Patient Records regulations: The Federal rules restrict any use of the information to criminally investigate or prosecute any alcohol or drug abuse patient.[facility] CampusIn the event this information is protected by the Federal Confidentiality of Alcohol and Drug Abuse Patient Records regulations: The Federal rules restrict any use of the information to criminally investigate or prosecute any alcohol or drug abuse patient.[facility] CampusIn the event this information is protected by the Federal Confidentiality of Alcohol and Drug Abuse Patient Records regulations: The Federal rules restrict any use of the information to criminally investigate or prosecute any alcohol or drug abuse patient.[facility] CampusIn the event this information is protected by the Federal Confidentiality of Alcohol and Drug Abuse Patient Records regulations: The Federal rules restrict any use of the information to criminally investigate or prosecute any alcohol or drug abuse patient.[facility] CampusIn the event this information is protected by the Federal Confidentiality of Alcohol and Drug Abuse Patient Records regulations: The Federal rules restrict any use of the information to criminally investigate or prosecute any alcohol or drug abuse patient.[facility] CampusIn the event this information is protected by the Federal Confidentiality of Alcohol and Drug Abuse Patient Records regulations: The Federal rules restrict any use of the information to criminally investigate or prosecute any alcohol or drug abuse patient.[facility] CampusIn the event this information is protected by the Federal Confidentiality of Alcohol and Drug Abuse Patient Records regulations: The Federal rules restrict any use of the information to criminally investigate or prosecute any alcohol or drug abuse patient.[facility] CampusIn the event this information is protected by the Federal Confidentiality of Alcohol and Drug Abuse Patient Records regulations: The Federal rules restrict any use of the information to criminally investigate or prosecute any alcohol or drug abuse patient.[facility] CampusIn the event this information is protected by the Federal Confidentiality of Alcohol and Drug Abuse Patient Records regulations: The Federal rules restrict any use of the information to criminally investigate or prosecute any alcohol or drug abuse patient.[facility] CampusIn the event this information is protected by the Federal Confidentiality of Alcohol and Drug Abuse Patient Records regulations: The Federal rules restrict any use of the information to criminally investigate or prosecute any alcohol or drug abuse patient.[facility] CampusIn the event this information is protected by the Federal Confidentiality of Alcohol and Drug Abuse Patient Records regulations: The Federal rules restrict any use of the information to criminally investigate or prosecute any alcohol or drug abuse patient.[facility] CampusIn the event this information is protected by the Federal Confidentiality of Alcohol and Drug Abuse Patient Records regulations: The Federal rules restrict any use of the information to criminally investigate or prosecute any alcohol or drug abuse patient.[facility] CampusIn the event this information is protected by the Federal Confidentiality of Alcohol and Drug Abuse Patient Records regulations: The Federal rules restrict any use of the information to criminally investigate or prosecute any alcohol or drug abuse patient.[facility] CampusIn the event this information is protected by the Federal Confidentiality of Alcohol and Drug Abuse Patient Records regulations: The Federal rules restrict any use of the information to criminally investigate or prosecute any alcohol or drug abuse patient.[facility] CampusIn the event this information is protected by the Federal Confidentiality of Alcohol and Drug Abuse Patient Records regulations: The Federal rules restrict any use of the information to criminally investigate or prosecute any alcohol or drug abuse patient.[facility] CampusIn the event this information is protected by the Federal Confidentiality of Alcohol and Drug Abuse Patient Records regulations: The Federal rules restrict any use of the information to criminally investigate or prosecute any alcohol or drug abuse patient.[facility] CampusIn the event this information is protected by the Federal Confidentiality of Alcohol and Drug Abuse Patient Records regulations: The Federal rules restrict any use of the information to criminally investigate or prosecute any alcohol or drug abuse patient.[facility] CampusIn the event this information is protected by the Federal Confidentiality of Alcohol and Drug Abuse Patient Records regulations: The Federal rules restrict any use of the information to criminally investigate or prosecute any alcohol or drug abuse patient.[facility] Reason for Visit (unrecogniz ed section and content) Reason Comments Physical Therapy Specialty Diagnoses / Procedures Referred By Contac t Referred To Contact Physical Therapy / PHYSICAL THERAPY Diagnoses Pain Rt Knee Procedures NEW RS PT ORTH MSK Oj Hu, LEGAL INSTRUCTOR.BREAK OFF WORKER [address] [place] [address] KieranSaundra, PT [address] [place] [address] Referral ID Status Reason Start Date Expiration Date V isits Requested Visits Authorized [id number] Authorized 08/01/2021 11/20/2021 99 99 Reason Comments Physical Therapy PT Progress Note Reason Comments Hypertension Reason Comments accident claim form Pt left form to be f illed out, its in folder in front office Reason Comments Results Reason Comments Patient Question Reason Comments Results CATHY, stress test Reason Comments Medicare Wellness Exam Reason Comments Refill Request Reason Comments Medicare Wellness Exam Reason Comments Results Mammogram Reason Comments Lab Orders Reason Comments Orders Reason Onset Date Comments Population Health Navigation Outreach 08/13/2024 [employer] High Risk- Attempt 1 Reason Onset Date Comments Population Health Navigation Outreach 08/16/2024 [employer] high risk attempt 2 Reason Onset Date Comments Refill Request 11/22/2024 Reason Onset Date Comments Well Adult 01/16/2025 Reason Onset Date Comments Population Health Navigation Outreach 01/24/2025 [employer] Attributed Member - Chart Review Care Teams (unrecognized sec tion and content) Insurance Follow Up Rep Relationship Specialty Start Date End Date Oj Hu, LEGAL INSTRUCTOR.BREAK OFF WORKER PCP - General 03/26/15 Insurance Follow Up Rep Relationship Specialty Start Date End Date Oj Hu, LEGAL INSTRUCTOR.BREAK OFF WORKER PCP - General 03/26/15 Insurance Follow Up Rep Relationship Specialty Start Date End Date Oj Hu, LEGAL INSTRUCTOR.BREAK OFF WORKER PCP - General 03/26/15 Insurance Follow Up Rep Relationship Specialty Start Date End Date Oj Hu, LEGAL INSTRUCTOR.BREAK OFF WORKER PCP - General 03/26/15 Insurance Follow Up Rep Relationship Specialty Start Date End Date Oj Hu, LEGAL INSTRUCTOR.BREAK OFF WORKER PCP - General 03/26/15 Insurance Follow Up Rep Relationship Specialty Start Date End Date Oj Hu, LEGAL INSTRUCTOR.BREAK OFF WORKER PCP - General 03/26/15 Insurance Follow Up Rep Relationship Specialty Start Date End Date Oj Hu, LEGAL INSTRUCTOR.BREAK OFF WORKER PCP - General 03/26/15 Insurance Follow Up Rep Relationship Specialty Start Date End Date Oj Hu, LEGAL INSTRUCTOR.BREAK OFF WORKER PCP - General 03/26/15 Insurance Follow Up Rep Relationship Specialty Start Date End Date Oj Hu, LEGAL INSTRUCTOR.BREAK OFF WORKER PCP - General 03/26/15 Insurance Follow Up Rep Relationship Specialty Start Date End Date Oj Hu, LEGAL INSTRUCTOR.BREAK OFF WORKER PCP - General 03/26/15 Insurance Follow Up Rep Relationship Specialty Start Date End Date Oj Hu, LEGAL INSTRUCTOR.BREAK OFF WORKER PCP - General 03/26/15 Yovany Nicole MD [address] [facility] [address] [address] Gastroenterology 03/22/23 Ashish Johnson MD [address] [address] PERSONNEL SECURITY ASSISTANT 03/22/23 Mauri Miguel MD [address] [place] [address] Dermatology 03/22/23 David Rush, OD [address] [place] [address] Optometry 03/22/23 Insurance Follow Up Rep Relationship Specialty Start Date End Date Oj Hu, LEGAL INSTRUCTOR.BREAK OFF WORKER PCP - General 03/26/15 Yovany Nicole MD [address] [address] Gastroenterology 03/22/23 Ashish Johnson MD [address] [address] PERSONNEL SECURITY ASSISTANT 03/22/23 Mauri Miguel MD [address] [place] [address] Dermatology 03/22/23 David Rush, OD [address] [place] [address] Optometry 03/22/23 Insurance Follow Up Rep Relationship Specialty Start Date End Date Oj Hu, LEGAL INSTRUCTOR.BREAK OFF WORKER PCP - General 03/26/15 Yovany Nicole MD [address] [address] Gastroenterology 03/22/23 Ashish Johnson MD [address] [address] PERSONNEL SECURITY ASSISTANT 03/22/23 Mauri Miguel MD [address] [place] [address] Dermatology 03/22/23 David Rush, OD [address] [place] [address] Optometry 03/22/23 Insurance Follow Up Rep Relationship Specialty Start Date End Date Oj Hu LEGAL INSTRUCTOR.BREAK OFF WORKER PCP - General 03/26/15 [place] [address] [place] [address] [address] [address] Gastroenterology 03/22/23 Ashish Johnson MD [address] [address] Safety Sealer 03/22/23 Mauri Miguel MD [address] [place] [address] Dermatology 03/22/23 David Rush, OD [address] [place] [address] Optometry 03/22/23 Insurance Follow Up Rep Relationship Specialty Start Date End Date Oj Hu, LEGAL INSTRUCTOR.BREAK OFF WORKER PCP - General 03/26/15 Yovany Nicole MD [address] [place] [address] Gastroenterology 03/22/23 Ashish Johnson MD [address] [address] Safety Sealer 03/22/23 Mauri Miguel MD [address] [place] [address] Dermatology 03/22/23 David Rush OD [address] [place], [place] [phone] Optometry 03/22/23 Insurance Follow Up Rep Relationship Specialty Start Date End Date Oj Hu, LEGAL INSTRUCTOR.BREAK OFF WORKER PCP - General 03/26/15 Yovany Nicole MD [address] [place] [address] Gastroenterology 03/22/23 Ashish Johnson MD [address] [place] [address] Safety Sealer 03/22/23 Mauri Miguel MD [address] [place] [address] Dermatology 03/22/23 David Rush OD [address] [place] [address] Optometry 03/22/23 Insurance Follow Up Rep Relationship Specialty Start Date End Date Oj Hu, LEGAL INSTRUCTOR.BREAK OFF WORKER PCP - General 03/26/15 Yovany Nicole MD [address] [place] [address] Gastroenterology 03/22/23 Ashish Johnson MD [address] [address] Safety Sealer 03/22/23 Mauri Miguel MD [address] [place], [place] [address] Dermatology 03/22/23 David Rush OD [address] [place] [address] Optometry 03/22/23 Insurance Follow Up Rep Relationship Specialty Start Date End Date Oj Hu, LEGAL INSTRUCTOR.BREAK OFF WORKER PCP - General 03/26/15 Yovany Nicole MD [address] [place] [address] Gastroenterology 03/22/23 Ashish Johnson MD [address] [address] Safety Sealer 03/22/23 Mauri Miguel MD [address] [facility] [place] [place] [address] [phone] Dermatology 03/22/23 Anali Ibarra, OD [address] [place] [address] Optometry 04/04/24 Insurance Follow Up Rep Relationship Specialty Start Date End Date jO Hu LEGAL INSTRUCTOR.BREAK OFF WORKER PCP - General 03/26/15 Yovany Nicole MD [address] [address] Gastroenterology 03/22/23 Ashish Johnson MD [address] [address] Safety Sealer 03/22/23 Mauri Miguel MD [address] [place] [place], [place] [address] [phone] Dermatology 03/22/23 Anali Ibarra, OD [address] [place], [place] [address] Optometry 04/04/24 Insurance Follow Up Rep Relationship Specialty Start Date End Date Oj Hu, LEGAL INSTRUCTOR.BREAK OFF WORKER PCP - General 03/26/15 Yovany Nicole MD [address] [address] Gastroenterology 03/22/23 Ashish Johnson MD [address] [address] Safety Sealer 03/22/23 Mauri Miguel MD [address] [place] [address] Dermatology 03/22/23 Anali Ibarra, OD [address] [place] [address] Optometry 04/04/24 Insurance Follow Up Rep Relationship Specialty Start Date End Date Oj Hu, LEGAL INSTRUCTOR.BREAK OFF WORKER PCP - General 03/26/15 Yovany Nicole MD [address] [facility] [address] [address] Gastroenterology 03/22/23 Ashish Johnson MD [address] [address] Safety Sealer 03/22/23 Mauri Miguel MD [address] [place] [address] Dermatology 03/22/23 Anali Ibarra, OD [address] [place] [address] Optometry 04/04/24 Insurance Follow Up Rep Relationship Specialty Start Date End Date Oj Hu, LEGAL INSTRUCTOR.BREAK OFF WORKER PCP - General 03/26/15 Yovany Nicole MD [address] [place] [address] Gastroenterology 03/22/23 Ashish Johnson MD [address] [address] Safety Sealer 03/22/23 Mauri Miguel MD [address] [place], [place] [address] Dermatology 03/22/23 Anali Ibarra, DARIO [address] [place], [place] [address] Optometry 04/04/24 Insurance Follow Up Rep Relationship Specialty Start Date End Date Oj Hu APRN.BREAK OFF WORKER PCP - General 03/26/15 Yovany Nicole MD [address] [place] [address] Gastroenterology 03/22/23 Ashish Johnson MD [address] [address] Safety Sealer 03/22/23 Mauri Miguel MD [address] [place], [place] [address] Dermatology 03/22/23 Anali Ibarra, DARIO [address] [place] [place], [place] [address] Optometry 04/04/24 Insurance Follow Up Rep Relationship Specialty Start Date End Date Oj Hu, LEGAL INSTRUCTOR.BREAK OFF WORKER PCP - General 03/26/15 Yovany Nicole MD [address] [address] Gastroenterology 03/22/23 Ashish Johnson MD [address] [address] Safety Sealer 03/22/23 Mauri Miguel MD [address] [facility] [place] [address] Dermatology 03/22/23 Anali Ibarra OD [address] [place] [address] Optometry 04/04/24 Insurance Follow Up Rep Relationship Specialty Start Date End Date Oj Hu, LEGAL INSTRUCTOR.BREAK OFF WORKER PCP - General 03/26/15 Yovany Nicole MD [address] [address] Gastroenterology 03/22/23 Ashish Johnson MD [address] [address] Safety Sealer 03/22/23 Mauri Miguel MD [address] [place] [address] Dermatology 03/22/23 Anali Ibarra, OD [address] [place] [address] Optometry 04/04/24 Insurance Follow Up Rep Relationship Specialty Start Date End Date Oj Hu, LEGAL INSTRUCTOR.BREAK OFF WORKER PCP - General 03/26/15 Yovany Nicole MD [address] [address] Gastroenterology 03/22/23 Ashish Johnson MD [address] [address] Safety Sealer 03/22/23 Mauri Miguel MD [address] [place] [address] Dermatology 03/22/23 Anali Ibarra, OD [address] [place] [address] Optometry 04/04/24 Insurance Follow Up Rep Relationship Specialty Start Date End Date Oj Hu, LEGAL INSTRUCTOR.BREAK OFF WORKER PCP - General 03/26/15 Yovany Nicole MD [address] [address] Gastroenterology 03/22/23 Ashish Johnson MD [address] [address] Safety Sealer 03/22/23 Mauri Miguel MD [address] [place] [address] Dermatology 03/22/23 Anali Ibarra, OD [address] [place] [place], [place] [address] Optometry 04/04/24 Insurance Follow Up Rep Relationship Specialty Start Date End Date Oj Hu, LEGAL INSTRUCTOR.[facility] PCP - General 03/26/15 Yovany Nicole MD [address] [address] Gastroenterology 03/22/23 Ashish Johnson MD [address] [address] Safety Sealer 03/22/23 Mauri Miguel MD [address] [place], [place] [address] [phone] Dermatology 03/22/23 Anali Ibarra, DARIO [address] [place], [place] [id number] Optometry 04/04/24 FOR RECORDS PERTAINING TO PATIENTS WHO ARE OR HAVE BEEN ENROLLED IN A CHEMICAL DEPENDENCY/SUBSTANCEABUSE PROGRAM, SOME INFORMATION MAY BE OMITTED. This clinical summary was aggregated from multiple sources. Caution should be exercised in using it in the provision of clinical care. This summary normalizes information from multiple sources, and as a consequence, information in this document may materially change the coding, format and clinical context of patient data. In addition, data may be omitted in some cases. CLINICAL DECISIONS SHOULD BE BASED ON THE PRIMARY CLINICAL RECORDS. [facility] marker.to [facility]. provides no warranty or guarantee of the accuracy or completeness of information in this document.
== END | disposition home or self-care (01) ==
LOC: OPBD 12:46
PROVIDERS: PCP Nurse Practitioner Adult Health; Referring Provider Nurse Practitioner Adult Health; Visit Provider Nurse Practitioner Adult Health
DX: Z12.31 Encounter for screening mammogram for malignant neoplasm of breast (principal); Z78.0 Asymptomatic menopausal state
CPT/HCPCS: 77063; 77067; 77080